=== PATIENT | female | born 1965 | race Caucasian/White ===

== ENCOUNTER 2017-06-24 14:24 | Inpatient (IN) | payer MEDICAID ==
--- NOTE | 2017-06-24 14:50 | EDM.PDOC ---
ED HPI GENERAL MEDICAL PROBLEM - General Chief Complaint: Abdominal Pain Stated Complaint: BEING SENT FROM [facility] Time Seen by Provider: 06/24/17 14:50 Source of Information: Reports: Patient History Limitations: Reports: No Limitations - History of Present Illness INITIAL COMMENTS - FREE TEXT/NARRATIVE: 52 yo white female c/o LLQ pain since Tue. w/ diarrhea and Nausea Onset Date: 06/22/17 Onset Time: 12:00 Duration: Day(s):, Getting Worse Location: Reports: Abdomen Quality: Reports: Ache Severity: Moderate Improves with: Reports: None Worsens with: Reports: Movement Associated Symptoms: Reports: Loss of Appetite, Nausea/Vomiting Left Lower Abdomen Pain Score (Numeric/FACES): 10 - Related Data Allergies Allergy/AdvReac Type Severity Reaction Status Date / Time codeine AdvReac Nausea and Verified 06/24/17 14:59 Vomiting Home Meds: Home Meds . [No Known Home Meds] 06/26/16 [History] Past Medical History HEENT History: Reports: Cataract Gastrointestinal History: Reports: GERD - Infectious Disease History Infectious Disease History: Reports: Chicken Pox, Measles, Mumps - Past Surgical History HEENT Surgical History: Reports: Cataract Surgery Female Surgical History: Reports: Tubal Ligation Social & Family History - Family History Family Medical History: Noncontributory - Tobacco Use Smoking Status *Q: Current Every Day Smoker Years of Tobacco use: 30 Packs/Tins Daily: 0.5 Used Tobacco, but Quit: No Second Hand Smoke Exposure: Yes - Alcohol Use Days Per Week of Alcohol Use: 3 Number of Drinks Per Day: 6 Total Drinks Per Week: 18 - Recreational Drug Use Recreational Drug Use: No ED ROS GENERAL - Review of Systems Review Of Systems: See Below Constitutional: Reports: Decreased Appetite HEENT: Reports: No Symptoms Respiratory: Reports: No Symptoms Cardiovascular: Reports: No Symptoms Endocrine: Reports: No Symptoms GI/Abdominal: Reports: Abdominal Pain (LLQ and across lower abdomen) : Reports: No Symptoms Musculoskeletal: Reports: No Symptoms Skin: Reports: No Symptoms Neurological: Reports: No Symptoms Psychiatric: Reports: No Symptoms Hematologic/Lymphatic: Reports: No Symptoms Immunologic: Reports: No Symptoms ED EXAM, GI/ABD - Physical Exam Exam: See Below Exam Limited By: No Limitations General Appearance: Alert, No Apparent Distress, Obese Eyes: Bilateral: EOMI Ears: Normal External Exam Nose: Normal Inspection Throat/Mouth: Normal Inspection, Normal Lips Head: Atraumatic, Normocephalic Neck: Normal Inspection, Supple Respiratory/Chest: No Respiratory Distress, Lungs Clear Cardiovascular: Normal Peripheral Pulses, Regular Rate, Rhythm, No Edema GI/Abdominal Exam: Guarding, Rebound, Tender (LLQ most, but diffuse), Abnormal Bowel Sounds (decreased) Rectal (Female) Exam: Tenderness Back Exam: Normal Inspection Extremities: Normal Inspection, Normal Range of Motion Neurological: Alert, Oriented, CN II-XII Intact, Normal Cognition Psychiatric: Normal Affect Skin Exam: Warm, Dry, Intact Lymphatic: No Adenopathy Course - Vital Signs Last Recorded V/S: Last Vital Signs Temp 36.4 C 06/24/17 17:58 Pulse 92 06/24/17 17:58 Resp 20 06/24/17 17:58 BP 117/69 06/24/17 17:58 Pulse Ox 92 L 06/24/17 17:58 - Orders/Labs/Meds Orders: Active Orders 24 hr Category Date Time Status CULTURE URINE [RM] Stat Lab 06/24/17 15:09 Received D5 1/2 NS w/ 40 mEq/L KCl 1,000 ml Med 06/24/17 15:45 Active IV ASDIRECTED Medication Orders Potassium Chloride/Dextrose/Sod Cl (D5 1/2 Ns W/ 40 Meq/L Kcl) 1,000 mls @ 999 mls/hr IV ASDIRECTED FELICITA Last Admin: 06/24/17 17:55 Dose: 999 mls/hr Labs: Laboratory Tests 06/24/17 06/24/17 06/24/17 Range/Units 14:48 14:48 14:48 WBC 19.3 H (5.0-10.0) 10^3/uL RBC 4.43 (4.2-5.4) 10^6/uL Hgb 14.2 (12.0-16.0) g/dL Hct 42.5 (37.0-47.0) % MCV 95.9 (80-100) fL MCH 32.1 (27.0-34.0) pg MCHC 33.4 (33.0-35.0) g/dL Plt Count 225 (150-450) 10^3/uL Neut % (Auto) 83.7 H (42.2-75.2) % Lymph % (Auto) 7.8 L (20.5-50.1) % [place] % (Auto) 8.2 H (2-8) % Eos % (Auto) 0.2 L (1.0-3.0) % Baso % (Auto) 0.1 (0.0-1.0) % Sodium 133 L (135-145) mmol/L Potassium 2.9 L (3.6-5.0) mmol/L Chloride 89 L D (101-111) mmol/L Carbon Dioxide 31.0 (21.0-31.0) mmol/L Anion Gap 15.9 BUN 9 (7-18) mg/dL Creatinine 0.6 (0.6-1.3) mg/dL Est Cr Clr Drug Dosing 84.78 mL/min Estimated GFR (MDRD) > 60 BUN/Creatinine Ratio 15.00 Glucose 103 (74-105) mg/dL Calcium 9.4 (8.4-10.2) mg/dl Magnesium 1.6 L (1.8-2.5) mg/dL Total Bilirubin 2.4 H (0.2-1.0) mg/dL AST 32 (10-42) IU/L ALT 31 (10-60) IU/L Alkaline Phosphatase 121 (42-121) IU/L Total Protein 7.3 (6.7-8.2) g/dl Albumin 3.5 (3.2-5.5) g/dl Globulin 3.8 Albumin/Globulin Ratio 0.92 Amylase 30 (28-100) U/L Lipase 19 L (22-51) U/L Urine Color (YELLOW) Urine Appearance (CLEAR) Urine pH (5.0-9.0) Ur Specific [place] (1.005-1.030) Urine Protein (NEGATIVE) Urine Glucose (UA) (NEGATIVE) Urine Ketones (NEGATIVE) Urine Occult Blood (NEGATIVE) Urine Nitrite (NEGATIVE) Urine Bilirubin (NEGATIVE) Urine Urobilinogen (0.2-1.0) mg/dL Ur Leukocyte Esterase (NEGATIVE) Urine RBC /HPF Urine WBC (0-5/HPF) /HPF Ur Epithelial Cells /HPF Amorphous Sediment (0/HPF) /HPF Urine Bacteria (0-FEW/HPF) /HPF Urine Mucus /LPF 06/24/ Range/Units 15:09 WBC (5.0-10.0) 10^3/uL RBC (4.2-5.4) 10^6/uL Hgb (12.0-16.0) g/dL Hct (37.0-47.0) % MCV (80-100) fL MCH (27.0-34.0) pg MCHC (33.0-35.0) g/dL Plt Count (150-450) 10^3/uL Neut % (Auto) (42.2-75.2) % Lymph % (Auto) (20.5-50.1) % [place] % (Auto) (2-8) % Eos % (Auto) (1.0-3.0) % Baso % (Auto) (0.0-1.0) % Sodium (135-145) mmol/L Potassium (3.6-5.0) mmol/L Chloride (101-111) mmol/L Carbon Dioxide (21.0-31.0) mmol/L Anion Gap BUN (7-18) mg/dL Creatinine (0.6-1.3) mg/dL Est Cr Clr Drug Dosing mL/min Estimated GFR (MDRD) BUN/Creatinine Ratio Glucose (74-105) mg/dL Calcium (8.4-10.2) mg/dl Magnesium (1.8-2.5) mg/dL Total Bilirubin (0.2-1.0) mg/dL AST (10-42) IU/L ALT (10-60) IU/L Alkaline Phosphatase (42-121) IU/L Total Protein (6.7-8.2) g/dl Albumin (3.2-5.5) g/dl Globulin Albumin/Globulin Ratio Amylase (28-100) U/L Lipase (22-51) U/L Urine Color [place] (YELLOW) Urine Appearance Cloudy (CLEAR) Urine pH 8.5 (5.0-9.0) Ur Specific [place] 1.015 (1.005-1.030) Urine Protein 100 H (NEGATIVE) Urine Glucose (UA) 100 H (NEGATIVE) Urine Ketones 80 H (NEGATIVE) Urine Occult Blood Moderate H (NEGATIVE) Urine Nitrite Positive H (NEGATIVE) Urine Bilirubin Large H (NEGATIVE) Urine Urobilinogen >=8.0 H (0.2-1.0) mg/dL Ur Leukocyte Esterase Negative (NEGATIVE) Urine RBC 40-50 H /HPF Urine WBC 0-5 (0-5/HPF) /HPF Ur Epithelial Cells Moderate H /HPF Amorphous Sediment Moderate H (0/HPF) /HPF Urine Bacteria Moderate H (0-FEW/HPF) /HPF Urine Mucus Moderate H /LPF Meds: Medications Generic Name Dose Route Start Last Admin Trade Name Freq PRN Reason Stop Dose Admin Potassium Chloride/Dextrose/Sod Cl 1,000 mls @ 999 mls/hr 06/24/17 15:45 17:55 D5 1/2 Ns W/ 40 Meq/L Kcl IV 999 mls/hr ASDIRECTED FELICITA Administration Discontinued Medications Generic Name Dose Route Start Last Admin Trade Name Freq PRN Reason Stop Dose Admin Hydromorphone HCl 1 mg 06/24/17 14:52 06/24/17 15:16 Dilaudid IVPUSH 06/24/17 14:53 1 mg ONETIME ONE Administration Sodium Chloride 1,000 mls @ 999 mls/hr 06/24/17 14:52 06/24/17 15:13 Normal Saline IV 06/24/17 15:52 999 mls/hr .BOLUS ONE Administration Ciprofloxacin/Dextrose 400 mg/ 200 mls @ 200 mls/hr 06/24/17 15:40 Premix IV 06/24/17 16:39 ONETIME ONE Metronidazole 500 mg/ Premix 100 mls @ 100 mls/hr 06/24/17 15:40 06/24/17 16: 32 IV 06/24/17 16:39 100 mls/hr ONETIME ONE Administration Iopamidol 100 ml 06/24/17 15:26 06/24/17 15:45 Isovue-300 (61%) IVPUSH 06/24/17 15:27 100 ml ONETIME ONE Administration Ondansetron HCl 4 mg 06/24/17 14:52 06/24/17 15:14 Zofran IV 06/24/17 14:53 4 mg ONETIME ONE Administration Departure - Departure Time of Disposition: 18:16 Disposition: Admitted As Inpatient 64 Condition: Fair Clinical Impression: Diverticulitis Qualifiers: Diverticulitis site: large intestine Diverticulitis bleeding: with bleeding Diverticulitis complication: without perforation or abscess Qualified Code(s): K57.33 - Diverticulitis of large intestine without perforation or abscess with bleeding UTI (urinary tract infection) Qualifiers: Urinary tract infection type: acute cystitis Hematuria presence: with hematuria Qualified Code(s): N30.01 - Acute cystitis with hematuria - Discharge Information Referrals: Fred Ayers MD [Physician] - Forms: ED Department Discharge - My Orders Last 24 Hours: My Active Orders 06/24/17 15:09 CULTURE URINE [RM] Stat 06/24/17 15:45 D5 1/2 NS w/ 40 mEq/L KCl 1,000 ml IV ASDIRECTED - Assessment/Plan Last 24 Hours: My Active Orders 06/24/17 15:09 CULTURE URINE [RM] Stat 06/24/17 15:45 D5 1/2 NS w/ 40 mEq/L KCl 1,000 ml IV ASDIRECTED
[2017-06-24] MEDS ORDERED: HYDROmorphone 1 MG/ML Syringe IVPUSH ONE (14:52)
[2017-06-24] MEDS ORDERED: Ondansetron 4 MG/2 ML SDV IV ONE (14:52)
[2017-06-24] MEDS ORDERED: Sodium Chloride 0.9% 1,000 ML IV ONE (14:52)
[2017-06-24 15:24] LABS: CHLORIDE,CL 89 mmol/L (101-111); SODIUM,NA 133 mmol/L (135-145)
[2017-06-24] MEDS ORDERED: Iopamidol 612 MG/ML 100 ML Bottle IVPUSH ONE (15:26)
[2017-06-24] MEDS ORDERED: Ciprofloxacin in D5W 400 MG in Premix Bag 1 BAG IV ONE ×2 (15:40)
[2017-06-24] MEDS ORDERED: metroNIDAZOLE/Normal Saline 500 MG in Premix Bag 100 BAG IV ONE (15:40)
[2017-06-24] MEDS ORDERED: D5 1/2 NS w/ 40 mEq/L KCl 1,000 ML IV SCH (15:45)
[2017-06-24] MEDS ORDERED: Ondansetron 4 MG/2 ML SDV IVPUSH PRN (18:36)
[2017-06-24] MEDS ORDERED: Sodium Chloride 0.9% 1,000 ML IV SCH (18:45)
[2017-06-24] MEDS ORDERED: Ciprofloxacin in D5W 400 MG in Premix Bag 1 BAG IV SCH ×2 (18:45)
[2017-06-24] MEDS: HYDROmorphone 1 MG/ML Syringe IVPUSH PRN ×2 (19:50→23:07)
[2017-06-24] MEDS: Sodium Chloride 0.9% with KCl 1,000 ML IV SCH (21:27)
[2017-06-24] MEDS: Heparin Sodium 5,000 Units/ML Vial SUBCUT SCH (21:33)
[2017-06-24] MEDS: metroNIDAZOLE/Normal Saline 500 MG in Premix Bag 100 BAG IV SCH (22:39)
[2017-06-25] MEDS: Heparin Sodium 5,000 Units/ML Vial SUBCUT SCH ×3 (05:50→21:12)
[2017-06-25] MEDS: HYDROmorphone 1 MG/ML Syringe IVPUSH PRN ×2 (06:10→10:16)
[2017-06-25] MEDS: metroNIDAZOLE/Normal Saline 500 MG in Premix Bag 100 BAG IV SCH ×3 (07:15→23:49)
[2017-06-25] MEDS: Ciprofloxacin in D5W 400 MG in Premix Bag 1 BAG IV SCH ×4 (08:36→21:07)
[2017-06-25] MEDS: Sodium Chloride 0.9% with KCl 1,000 ML IV SCH ×2 (11:09→21:14)
[2017-06-25] MEDS: Acetaminophen/oxyCODONE 325-5 MG Tab PO PRN ×2 (11:10→18:04)
[2017-06-26] MEDS: Heparin Sodium 5,000 Units/ML Vial SUBCUT SCH ×3 (06:01→21:11)
[2017-06-26] MEDS: metroNIDAZOLE/Normal Saline 500 MG in Premix Bag 100 BAG IV SCH (06:40)
[2017-06-26] MEDS: Piperacillin/Tazobactam 2.25 GM in Sodium Chloride 0.9% 50 ML IV SCH ×3 (10:25→21:06)
[2017-06-26] MEDS: Ciprofloxacin in D5W 400 MG in Premix Bag 1 BAG IV SCH ×2 (10:49)
--- NOTE | 2017-06-26 11:59 | PN ---
DATE: 06/26/2017 SUBJECTIVE: Ms. Shanon Estrada is a 52-year-old female with no significant past medical history. The patient was admitted with abdominal pain and found to have acute diverticulitis on CT scan. Today, the patient states that she still has a lot of pain in the left lower quadrant. She still has pain and is dull in nature. Has improved. It is not intermittent. She also indicated that she has not had bowel movement. No nausea. Has been on clear liquid diet. REVIEW OF SYSTEMS: Constitutional, cardiac, respiratory, gastrointestinal, genitourinary, and neurology system were reviewed. No other pertinent findings except as noted above. OBJECTIVE: General: The patient is alert, oriented to place, time, and person. Head: Atraumatic and normocephalic. Chest: Clear to auscultation. CVS: Regular rate and rhythm. Abdomen: Vague tenderness in the left lower quadrant. No rebound tenderness. Extremities: No pedal edema. No finger clubbing. Skin: No rash. Vital Signs: Blood pressure is 150/78, pulse 63 per minute, respiratory rate 20 per minute, oxygen saturation is 97%. LABORATORY DATA: White cell count is down to normal at 8.4, hemoglobin 11.3. ASSESSMENT: 1. Acute sigmoid diverticulitis. This was noted on CT scan. 2. Possible urinary tract infection. Urine culture shows polymicrobial growth suggestive of possible contamination. 3. Elevated bilirubin. Significance of that is unclear. 4. Hypoalbuminemia likely due to decreased oral food intake. PLAN: 1. Discontinue intravenous fluids. 2. Discontinue Flagyl. 3. Discontinue ciprofloxacin. 4. Start the patient on intravenous Zosyn. 5. Obtain repeat basic metabolic panel. 6. Advanced diet to general diet. 7. Encourage increased ambulation. 8. Antiemetic protocol. chart reviewed. [facility] /[id number]
[2017-06-27] MEDS: Piperacillin/Tazobactam 2.25 GM in Sodium Chloride 0.9% 50 ML IV SCH ×2 (03:33→09:20)
[2017-06-27] MEDS: Sodium Chloride 0.9% 10 ML Syringe FLUSH PRN ×3 (03:34→09:21)
[2017-06-27] MEDS: Heparin Sodium 5,000 Units/ML Vial SUBCUT SCH (06:35)
[2017-06-27 06:49] LABS: CHLORIDE,CL 100 mmol/L (98-109); SODIUM,NA 136 mmol/L (138-146)
--- NOTE | 2017-06-27 07:03 | HP ---
CHIEF COMPLAINT: Abdominal pain. HISTORY OF PRESENT ILLNESS: Ms. Shanon Estrada is a 52-year-old female with no significant past medical history. She presented to the emergency room complaining of abdominal pain that started 3 days ago. It is located in the left lower quadrant. It has worsened since onset. Describes as dull in nature. She has associated intermittent loose stool and constipation. Also, has associated headache and has had intermittent nausea. No vomiting. Her appetite has been poor. She also complains of sinus problems. No dysuria. No frequency of micturition. No hematuria. She did have associated subjective fever prior to coming to the hospital. She stated her temperature was up to 100.4. REVIEW OF SYSTEMS: A 10-point review of system performed. No other pertinent findings except as noted above. FAMILY HISTORY: Reviewed and considered noncontributory. SOCIAL HISTORY: No tobacco use. No alcohol use. PAST MEDICAL HISTORY: None of note. MEDICATIONS: None. OBJECTIVE: General: The patient is alert, oriented to place, time, and person. Head: Atraumatic and normocephalic. Ear, Nose, and Throat: Unremarkable. Neck: Supple. Chest: Clear to auscultation. CVS: Regular rate and rhythm. Abdomen: Tenderness over the left lower quadrant. No rebound tenderness. Extremities: No pedal edema. No finger clubbing. Skin: No rash. Neuro: Symmetric strength in all extremities. Endocrine: No thyromegaly. Psychiatric: Judgment and insight are good. Vital Signs: Blood pressure is 117/69, pulse is 92 per minute, temperature 96.4, oxygen saturation 97%. LABORATORY DATA: White cell count is 19.3. Potassium is 2.9, sodium is 133, magnesium is 1.6. Total bilirubin is 2.4. Lipase is 19. Urinalysis is suggestive of infection with positive nitrites. ASSESSMENT: 1. Acute sigmoid diverticulitis. No evidence of perforation. 2. Abdominal lymphadenitis. This is secondary to diverticulitis. 3. Obesity. 4. Urinary tract infection. PLAN: 1. Admit the patient to medical floor. 2. Intravenous Dilaudid. 3. Intravenous Zofran. 4. Antiemetic protocol. 5. Start the patient on clear liquid to full liquid diet. 6. Intravenous ciprofloxacin, intravenous Flagyl. 7. Serial examination. 8. Chart reviewed. Discussed with emergency room physician. [facility] /[id number]
[2017-06-27 08:15] VITALS: BP 164/79
--- NOTE | 2017-06-27 08:51 | PN ---
DATE: 06/25/2017 SUBJECTIVE: The patient still complains of abdominal pain and points to the left lower quadrant. Intravenous pain medication does help, but effect does not last. No chest pain. No shortness of breath. No nausea, vomiting. Did not have any fever last night. REVIEW OF SYSTEMS: Cardiac, gastrointestinal, genitourinary, respiratory, general reviewed. No other pertinent findings except as noted above. OBJECTIVE: Vital Signs: Blood pressure 121/69, pulse 86 per minute, respiratory rate 20 per minute, temperature 96.5. General: Alert and oriented to place, time, and person. Chest: Diminished breath sounds bilaterally. Abdomen: Tenderness in the left lower quadrant. No rebound tenderness. Extremities: No pedal edema. LABORATORY DATA: White count is down to 16,000. Total bilirubin is 1.8, and direct is 0.5. Albumin is 2.8. ASSESSMENT: 1. Acute diverticulitis. No evidence of perforation. 2. Abdominal lymphadenitis. 3. Elevated bilirubin. 4. Urinary tract infection. Urinalysis is suggestive. PLAN: 1. Continue intravenous Cipro. 2. Continue intravenous Flagyl. 3. Obtain repeat CBC. 4. Start the patient on Percocet. 5. Clear liquid diet. 6. Encourage increased ambulation. [facility] /[id number]
--- NOTE | 2017-06-28 03:31 | DISCH ---
FINAL DIAGNOSES: 1. Acute sigmoid diverticulitis. 2. Probable urinary tract infection. 3. Elevated bilirubin. 4. Hypoalbuminemia. SUMMARY OF HOSPITAL COURSE: Ms. Shanon Estrada is a 52-year-old female with no significant past medical history. She presented with complaint of abdominal pain and nausea. She was found to be tender at the left lower quadrant and had elevated white cell count of 21,000. The patient had a CT scan that showed evidence of sigmoid diverticulitis with an abdominal lymphadenopathy. She got admitted to the hospital and was started on intravenous fluids and antibiotics. She was placed on ciprofloxacin and Flagyl and later switched to Zosyn. She has done well and her white cell count is down to normal. The patient's abdominal pain has also subsided. She will be discharged to home and follow up with her primary care provider. She has been advised to have a colonoscopy in 6 weeks. PHYSICAL EXAMINATION: General: At discharge, the patient is alert, oriented to place, time, and person. Head: Atraumatic and normocephalic. Ear, Nose, and Throat: Unremarkable. Neck: Supple. Chest: Good air entry bilaterally. Abdomen: Soft, nontender. Extremities: No pedal edema. No finger clubbing. Skin: No rash. [facility] /[id number]
== END 2017-06-27 10:10 | disposition home or self-care (01) | DRG 392 ==
LOC: DL.ED 14:24 → DL.MS 18:36
PROVIDERS: ADMIT Hospitalist; ATTEND Hospitalist
DX: K57.32 Diverticulitis of large intestine without perforation or abscess without bleeding (principal); N39.0 Urinary tract infection, site not specified; E80.6 Other disorders of bilirubin metabolism; E88.09 Other disorders of plasma-protein metabolism, not elsewhere classified; K21.9 Gastro-esophageal reflux disease without esophagitis; E66.9 Obesity, unspecified; Z88.8 Allergy status to other drugs, medicaments and biological substances
CPT/HCPCS: 36415; 74178; 80048; 80053; 80076; 81001; 82150; 82272; 83690; 83735; 85025; 87086; 96361; 96365; 96367; 96375; 99285; A9270-GY; J0744; J1170; J1644; J2405; J2543; J3480; J7030; J7050; Q9967

== ENCOUNTER 2017-09-13 06:55 | Day surgery (SDC) | payer MEDICAID ==
[2017-09-13] MEDS ORDERED: fentaNYL 100 MCG/2 ML SDV IV ONE ×4 (06:56→08:16)
[2017-09-13] MEDS ORDERED: Midazolam 1 MG/ML 2 ML SDV IV ONE ×7 (06:56→07:55)
[2017-09-13] MEDS ORDERED: Lactated Ringers 1,000 ML IV SCH (07:15)
[2017-09-13] MEDS ORDERED: Sodium Chloride 0.9% 10 ML Syringe IV PRN (07:15)
[2017-09-13] MEDS ORDERED: Midazolam 1 MG/ML 2 ML SDV ONE (07:16)
[2017-09-13] MEDS ORDERED: fentaNYL 100 MCG/2 ML SDV ONE (07:16)
--- NOTE | 2017-09-13 09:24 | OR ---
DATE: 09/13/2017 PREOPERATIVE DIAGNOSIS: Screening colonoscopy. POSTOPERATIVE DIAGNOSIS: Screening colonoscopy. PROCEDURES: Total colonoscopy with biopsy; removal of left colon polyp; and snare excision of sigmoid polyp, but the sigmoid polyp was not retrieved. ANESTHESIA: Conscious sedation with IV Versed and fentanyl. SPECIMEN: Polyp. OPERATIVE FINDINGS: A small 2-mm polyp in the left colon and a somewhat larger 4-mm polyp in the sigmoid colon. She also has moderate sigmoid diverticulosis. RECOMMENDATION: Follow up colonoscopy for polyp surveillance, 5 years. INDICATION FOR PROCEDURE: This 52-year-old female has not had a prior colonoscopy. She is here for screening. PROCEDURE IN DETAIL: After adequate preparation, a colonoscope was inserted into the rectum. This was passed up to just past the rectosigmoid junction, that it had a very difficult time negotiating this turn in the colon. It seemed to be fixed within the pelvis. Multiple maneuvers were unsuccessful. I withdrew the adult colonoscope and retried this using a pediatric scope. At this time, I was able to manipulate the scope around this adhesive area and passed this scope all the way to the cecum. Confirmation of the cecum was made by visualization of the appendiceal opening and palpation in the right lower quadrant. The bowel prep was very good on withdrawal of the scope. The only abnormality noted was a 2-mm polyp in the sigmoid colon. Multiple biopsies of this were taken to pretty much completely remove this polyp. Further down in the mid to lower sigmoid colon, there was a larger 4- to 5-mm polyp. A snare was used to encircle the polyp, and using cutting cautery, the polyp was extracted. This, however, retracted back up into the colon above the spot where the prior stricture had been, that I could not negotiate the first time, and I was not able to pass the scope back up the colon to retrieve this polyp. It certainly did not have the size criteria to be anything more than an adenoma. Other than that, she has sigmoid diverticulosis. Rectal examination was normal. Air was suctioned from the colon, and the scope was removed. [facility] /[id number]
[2017-09-13 11:21] VITALS: BP 135/72
== END 2017-09-13 10:40 | disposition home or self-care (01) ==
LOC: DL.ENDO 06:55
PROVIDERS: ATTEND Surgery
DX: Z12.11 Encounter for screening for malignant neoplasm of colon (principal); D12.6 Benign neoplasm of colon, unspecified; K57.30 Diverticulosis of large intestine without perforation or abscess without bleeding; Z88.8 Allergy status to other drugs, medicaments and biological substances; Z79.899 Other long term (current) drug therapy; F17.200 Nicotine dependence, unspecified, uncomplicated
CPT/HCPCS: 45380; 45385; J2250; J3010; J7050; J7120

== ENCOUNTER 2018-02-23 13:06 | Emergency (ER) | payer MEDICAID ==
--- NOTE | 2018-02-23 14:35 | EDM.PDOC ---
ED HPI GENERAL MEDICAL PROBLEM - General Chief Complaint: Gastrointestinal Problem Stated Complaint: DIVERTICULITUS ACTING UP Time Seen by Provider: 02/23/18 14:15 Source of Information: Reports: Patient History Limitations: Reports: No Limitations - History of Present Illness INITIAL COMMENTS - FREE TEXT/NARRATIVE: This 52 yo female patient reports to the ED with abdominal pain. The patient reports her symptoms started about 1 week ago, but got much worse today. The patient reports that she noticed that her urine was darker today. The patient reports that she has a history of diverticultis and was hospitalized for 9 days during the last episode. The patient reports that she has not seen or attempted to see her primary care facility at this time. The patient reports she has been drinking plenty of water and has not taken any OTC's for temporary symptom relief. Duration: Week(s):, Constant, Getting Worse Location: Reports: Abdomen Quality: Reports: Ache, Sharp Severity: Moderate Improves with: Reports: None Worsens with: Reports: None Associated Symptoms: Reports: No Other Symptoms Abdomen Pain Score (Numeric/FACES): 8 - Related Data Allergies Allergy/AdvReac Type Severity Reaction Status Date / Time codeine AdvReac Nausea and Verified 09/13/17 07:25 Vomiting Past Medical History HEENT History: Reports: Cataract Cardiovascular History: Reports: None Respiratory History: Reports: Bronchitis, Recurrent Gastrointestinal History: Reports: GERD, Other (See Below) Other Gastrointestinal History: diverticulitis Genitourinary History: Reports: None SHOWER MAID History: Reports: , Spontaneous Other OB/BYN History: 2 NVD, 4 miscarriages Musculoskeletal History: Reports: None Neurological History: Reports: Migraines Psychiatric History: Reports: None Endocrine/Metabolic History: Reports: Obesity/BMI 30+ Hematologic History: Reports: None Immunologic History: Reports: None Oncologic (Cancer) History: Reports: None Dermatologic History: Reports: None - Infectious Disease History Infectious Disease History: Reports: Chicken Pox, Measles, Mumps - Past Surgical History Head Surgeries/Procedures: Reports: None HEENT Surgical History: Reports: Adenoidectomy, Cataract Surgery, Eye Surgery, Tonsillectomy Cardiovascular Surgical History: Reports: None GI Surgical History: Reports: Cholecystectomy Female Surgical History: Reports: Tubal Ligation Endocrine Surgical History: Reports: None Neurological Surgical History: Reports: None Musculoskeletal Surgical History: Reports: None Dermatological Surgical History: Reports: None Social & Family History - Family History Family Medical History: Noncontributory - Tobacco Use Smoking Status *Q: Current Every Day Smoker Years of Tobacco use: 42 Packs/Tins Daily: 0.5 - Caffeine Use Caffeine Use: Reports: Coffee, Soda, Tea Caffeine Use Comment: 32oz - Alcohol Use Days Per Week of Alcohol Use: 3 Number of Drinks Per Day: 4 Total Drinks Per Week: 12 - Recreational Drug Use Recreational Drug Use: No ED ROS GENERAL - Review of Systems Review Of Systems: ROS reveals no pertinent complaints other than HPI. ED EXAM, GI/ABD - Physical Exam Exam: See Below Exam Limited By: No Limitations General Appearance: Alert, WD/WN, No Apparent Distress Eyes: Bilateral: Normal Appearance, EOMI Ears: Normal External Exam, Normal Canal, Hearing Grossly Normal, Normal TMs Nose: Normal Inspection, Normal Mucosa, No Blood Throat/Mouth: Normal Inspection, Normal Lips, Normal Teeth, Normal Gums, Normal Oropharynx, Normal Voice, No Airway Compromise Head: Atraumatic, Normocephalic Neck: Normal Inspection, Supple, Non-Tender, Full Range of Motion Respiratory/Chest: No Respiratory Distress, Lungs Clear, Normal Breath Sounds, No Accessory Muscle Use, Chest Non-Tender Cardiovascular: Normal Peripheral Pulses, Regular Rate, Rhythm, No Edema, No Gallop, No JVD, No Murmur, No Rub GI/Abdominal Exam: Guarding, Tender (diffuse) (Female) Exam: Deferred Rectal (Female) Exam: Deferred Back Exam: Normal Inspection, Full Range of Motion, NT Extremities: Normal Inspection, Normal Range of Motion, Non-Tender, Normal Capillary Refill, No Pedal Edema Neurological: Alert, Oriented, CN II-XII Intact, Normal Cognition, Normal Gait, Normal Reflexes, No Motor/Sensory Deficits Psychiatric: Normal Affect, Normal Mood Skin Exam: Warm, Dry, Intact, Normal Color, No Rash Lymphatic: No Adenopathy Course - Vital Signs Last Recorded V/S: Last Vital Signs Temp 37.1 C 02/23/18 16:58 Pulse 77 02/23/18 16:58 Resp 18 02/23/18 16:58 BP 134/76 02/23/18 16:58 Pulse Ox 93 L 02/23/18 16:58 - Orders/Labs/Meds Orders: Active Orders 24 hr Category Date Time Status UA W/MICROSCOPIC [URIN] Stat Lab 02/23/18 14:42 Ordered Piperacillin/Tazobactam [Zosyn] 3.375 gm Med 02/23/18 17:23 Ordered Sodium Chloride 0.9% [Normal Saline] 100 ml IV ONETIME Medication Orders Piperacillin Sod/Tazobactam (Sod 3.375 gm/ Sodium Chloride) 100 mls @ 200 mls/ hr IV ONETIME ONE Stop: 02/23/18 17:52 Labs: Laboratory Tests 02/23/18 02/23/18 02/23/18 Range/Units 14:32 14:32 14:42 WBC 8.5 (5.0-10.0) 10^3/uL RBC 3.73 L (4.2-5.4) 10^6/uL Hgb 12.9 D (12.0-16.0) g/dL Hct 38.6 (37.0-47.0) % MCV 103.5 H D (80-100) fL MCH 34.6 H (27.0-34.0) pg MCHC 33.4 (33.0-35.0) g/dL Plt Count 235 (150-450) 10^3/uL Neut % (Auto) 74.6 (42.2-75.2) % Lymph % (Auto) 16.6 L (20.5-50.1) % [place] % (Auto) 7.8 (2-8) % Eos % (Auto) 0.4 L (1.0-3.0) % Baso % (Auto) 0.6 (0.0-1.0) % Sodium 135 (135-145) mmol/L Potassium 2.7 L (3.6-5.0) mmol/L Chloride 83 L (101-111) mmol/L Carbon Dioxide 41.0 H D (21.0-31.0) mmol/L Anion Gap 13.7 BUN 4 L (7-18) mg/dL Creatinine 0.5 L (0.6-1.3) mg/dL Est Cr Clr Drug Dosing 101.73 mL/min Estimated GFR (MDRD) > 60 BUN/Creatinine Ratio 8.00 Glucose 99 (74-105) mg/dL Calcium 8.6 (8.4-10.2) mg/dl Total Bilirubin 1.6 H (0.2-1.0) mg/dL AST 48 H (10-42) IU/L ALT 18 (10-60) IU/L Alkaline Phosphatase 142 H (42-121) IU/L Total Protein 6.1 L (6.7-8.2) g/dl Albumin 3.0 L (3.2-5.5) g/dl Globulin 3.1 Albumin/Globulin Ratio 0.97 Urine Color Yellow (YELLOW) Urine Appearance Slightly cloudy (CLEAR) Urine pH >= 9.0 (5.0-9.0) Ur Specific [place] 1.015 (1.005-1.030) Urine Protein 100 H (NEGATIVE) Urine Glucose (UA) 100 H (NEGATIVE) Urine Ketones Negative (NEGATIVE) Urine Occult Blood Negative (NEGATIVE) Urine Nitrite Negative (NEGATIVE) Urine Bilirubin Moderate H (NEGATIVE) Urine Urobilinogen >=8.0 H (0.2-1.0) mg/dL Ur Leukocyte Esterase Negative (NEGATIVE) Urine RBC 5-10 H /HPF Urine WBC 0-5 (0-5/HPF) /HPF Ur Epithelial Cells Many H /HPF Urine Bacteria Few (0-FEW/HPF) /HPF Urine Mucus Few H /LPF Meds: Medications Generic Name Dose Route Start Last Admin Trade Name Freq PRN Reason Stop Dose Admin Piperacillin Sod/Tazobactam 100 mls @ 200 mls/hr 02/23/18 17:23 Sod 3.375 gm/ Sodium Chloride IV 02/23/18 17:52 ONETIME ONE Discontinued Medications Generic Name Dose Route Start Last Admin Trade Name Freq PRN Reason Stop Dose Admin Hydromorphone HCl 0.5 mg 02/23/18 17:01 02/23/18 17:09 Dilaudid IVPUSH 02/23/18 17:02 0.5 mg ONETIME ONE Administration Sodium Chloride 1,000 mls @ 999 mls/hr 02/23/18 14:23 02/23/18 14:51 Normal Saline IV 02/23/18 15:23 999 mls/hr .BOLUS ONE Administration Iopamidol 100 ml 02/23/18 15:32 02/23/18 16:03 Isovue-300 (61%) IVPUSH 02/23/18 15:33 100 ml ONETIME ONE Administration Ondansetron HCl 4 mg 02/23/18 17:01 02/23/18 17:07 Zofran IV 02/23/18 17:02 4 mg ONETIME ONE Administration Departure - Departure Time of Disposition: 17:24 Disposition: DC/Tfer to Acute Hospital 02 Condition: Fair Clinical Impression: Diverticular disease of intestine with perforation and abscess - Discharge Information Forms: Interfacility Transfer EMTALA Care Plan Goals: Discussed the examination, lab and CT results with Dr. Shaffer (Hospitalist with [facility] ). Dr. Shaffer accepted the patient for continued evaluation and management. The patient will be transported by [facility]. - My Orders Last 24 Hours: My Active Orders 02/23/18 14:42 UA W/MICROSCOPIC [URIN] Stat 02/23/18 17:23 Piperacillin/Tazobactam [Zosyn] 3.375 gm Sodium Chloride 0.9% [Normal Saline] 100 ml IV ONETIME - Assessment/Plan Last 24 Hours: My Active Orders 02/23/18 14:42 UA W/MICROSCOPIC [URIN] Stat 02/23/18 17:23 Piperacillin/Tazobactam [Zosyn] 3.375 gm Sodium Chloride 0.9% [Normal Saline] 100 ml IV ONETIME
[2018-02-23] MEDS: Sodium Chloride 0.9% 1,000 ML IV ONE (14:51)
[2018-02-23 15:03] LABS: CHLORIDE,CL 83 mmol/L (101-111)
[2018-02-23 15:04] LABS: SODIUM,NA 135 mmol/L (135-145)
[2018-02-23] MEDS: Iopamidol 612 MG/ML 100 ML Bottle IVPUSH ONE (16:03)
--- NOTE | 2018-02-23 16:35 | CT ---
Clinical history: 52-year-old 200 pound female smoker complaining of abdominal pain who was reported on previous CT scan 08/11/2017 to have "abnormal sigmoid colon". Cholecystectomy and large hiatus neida ia. White blood cell count 8500. Technique: Volume acquisition of data from the abdomen and pelvis obtained without oral contrast but during intravenous administration 100 cc nonionic Isovue contrast (2 cc/s via injector) while lying s upine on the Siemens multi slice scanner [place], [place]. All data ar chived in the PACS system for storage, reformatting and study. Interpretation: Abnormal. 1. *Abnormally thickened wall sigmoid colon with adjacent collection of fluid in the left lower quadr ant abdomen friends new since CT scan 16 August 2017) suggesting perforated diverticulum or colon m alignancy. Clinical correlation? 2. Cholecystectomy. Large fatty liver. Huge hiatus hernia incarcerated in the lower middle mediastinu m. 3. Abnormal appearance of the mucosa ascending right colon suggesting inflammatory colitis. No other pelvic or abdominal mass lesion and no signs of retroperitoneal lymphadenopathy. No mechanical bowel obstruction or free intraperitoneal air. 4. Calcifications scattered ectatic but normal caliber aortoiliac vessels. No aneurysm or dissection. 5. Midline uterus unremarkable. No adnexal mass lesions. 6. Marginal spondylosis. No pathologic skeletal lesion, lumbar fracture or dislocation. Atelectasis R LL. 7. Normal reniform size, axis and configuration. No sign of renal cortical mass lesion, nephrolithias is or obstructive uropathy. Spleen, pancreas and adrenal glands unremarkable.
[2018-02-23] MEDS: Ondansetron 4 MG/2 ML SDV IV ONE (17:07)
[2018-02-23] MEDS: HYDROmorphone 0.5 MG/0.5 ML Syringe IVPUSH ONE (17:09)
[2018-02-23 17:41] VITALS: BP 137/74
[2018-02-23] MEDS: Piperacillin/Tazobactam 3.375 GM in Sodium Chloride 0.9% 100 ML IV ONE (17:52)
== END 2018-02-23 18:03 ==
LOC: DL.ED 13:06
DX: K57.20 Diverticulitis of large intestine with perforation and abscess without bleeding (principal); K44.0 Diaphragmatic hernia with obstruction, without gangrene; F17.210 Nicotine dependence, cigarettes, uncomplicated; K21.9 Gastro-esophageal reflux disease without esophagitis; Z88.5 Allergy status to narcotic agent
CPT/HCPCS: 36415; 74177; 80053; 81001; 85025; 96361; 96374; 96375; 99285; J1170; J2405; J2543; J7030; J7050; Q9967

== ENCOUNTER 2018-05-21 21:16 | Emergency (ER) | payer MEDICAID ==
[2018-05-21 22:35] LABS: ANION GAP 11.6; CHLORIDE,CL 90 mmol/L (101-111); SODIUM,NA 138 mmol/L (135-145)
--- NOTE | 2018-05-21 22:59 | EDM.PDOC ---
ED HPI GENERAL MEDICAL PROBLEM - General Chief Complaint: Abdominal Pain Stated Complaint: STOMACH PAIN [id number] Time Seen by Provider: 05/21/18 22:56 Source of Information: Reports: Patient History Limitations: Reports: No Limitations - History of Present Illness INITIAL COMMENTS - FREE TEXT/NARRATIVE: gives long h/o LLQ pain from divertic, was here few months ago and sent to [facility] where they considered surgery but none was done. pain got worse tonight been having V & D on-off few days. 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: 2 NVD, 4 miscarriages Musculoskeletal History: Reports: None Neurological History: Reports: Migraines Psychiatric History: Reports: None Endocrine/Metabolic History: Reports: Obesity/BMI 30+ Hematologic History: Reports: None Immunologic History: Reports: None Oncologic (Cancer) History: Reports: None Dermatologic History: Reports: None - Infectious Disease History Infectious Disease History: Reports: Chicken Pox, Measles, Mumps - Past Surgical History Head Surgeries/Procedures: Reports: None HEENT Surgical History: Reports: Adenoidectomy, Cataract Surgery, Eye Surgery, Tonsillectomy Cardiovascular Surgical History: Reports: None GI Surgical History: Reports: Cholecystectomy Female Surgical History: Reports: Tubal Ligation Endocrine Surgical History: Reports: None Neurological Surgical History: Reports: None Musculoskeletal Surgical History: Reports: None Dermatological Surgical History: Reports: None Social & Family History - Family History Family Medical History: Noncontributory - Tobacco Use Smoking Status *Q: Current Every Day Smoker Years of Tobacco use: 40 Packs/Tins Daily: 1 - Caffeine Use Caffeine Use: Reports: Coffee Caffeine Use Comment: 32oz - Recreational Drug Use Recreational Drug Use: No ED ROS GENERAL - Review of Systems Review Of Systems: ROS reveals no pertinent complaints other than HPI. ED EXAM, GI/ABD - Physical Exam Exam: See Below Exam Limited By: No Limitations General Appearance: Alert, WD/WN, Mild Distress, Other (disocmfort) Ears: Hearing Grossly Normal Throat/Mouth: Normal Voice, No Airway Compromise Head: Atraumatic Neck: Non-Tender, Full Range of Motion Respiratory/Chest: No Respiratory Distress Cardiovascular: Regular Rate, Rhythm GI/Abdominal Exam: Guarding, Tender, Other (BS slightly increase). No: Distended, Rigid, Rebound Neurological: Alert, Oriented, Normal Cognition, Normal Gait, No Motor/Sensory Deficits Psychiatric: Flat Affect Skin Exam: Warm, Dry, Normal Color Lymphatic: No Adenopathy Course - Vital Signs Last Recorded V/S: Last Vital Signs Temp 36.4 C 05/21/18 21:54 Pulse 95 05/21/18 21:54 Resp 20 05/21/18 21:54 BP 115/78 05/21/18 21:54 Pulse Ox 94 L 05/21/18 21:54 - Orders/Labs/Meds Orders: Active Orders 24 hr Category Date Time Status Dextrose 5%-1/2 NS w/ 20 mEq/L KCl @ 150 mL/Hr (1000 mL Med 05/21/18 23:30 Ordered ) D5 1/2 NS w/ 20 mEq/L KCl 1,000 ml IV ASDIRECTED Labs: Laboratory Tests 05/21/18 05/21/18 05/21/18 Range/Units 22:10 22:10 22:12 WBC 7.6 (5.0-10.0) 10^3/uL RBC 3.89 L (4.2-5.4) 10^6/uL Hgb 13.2 (12.0-16.0) g/dL Hct 39.0 (37.0-47.0) % MCV 100.3 H D (80-100) fL MCH 33.9 (27.0-34.0) pg MCHC 33.8 (33.0-35.0) g/dL Plt Count 253 (150-450) 10^3/uL Neut % (Auto) 52.1 (42.2-75.2) % Lymph % (Auto) 40.6 (20.5-50.1) % [place] % (Auto) 5.8 (2-8) % Eos % (Auto) 1.0 (1.0-3.0) % Baso % (Auto) 0.5 (0.0-1.0) % Sodium 138 (135-145) mmol/L Potassium 2.6 L (3.6-5.0) mmol/L Chloride 90 L (101-111) mmol/L Carbon Dioxide 39.0 H (21.0-31.0) mmol/L Anion Gap 11.6 BUN 3 L (7-18) mg/dL Creatinine 0.9 (0.6-1.3) mg/dL Est Cr Clr Drug Dosing 55.86 mL/min Estimated GFR (MDRD) > 60 BUN/Creatinine Ratio 3.33 Glucose 111 H (74-105) mg/dL Calcium 8.5 (8.4-10.2) mg/dl Total Bilirubin 0.6 (0.2-1.0) mg/dL AST 45 H (10-42) IU/L ALT 26 (10-60) IU/L Alkaline Phosphatase 158 H (42-121) IU/L Total Protein 6.8 (6.7-8.2) g/dl Albumin 3.4 (3.2-5.5) g/dl Globulin 3.4 Albumin/Globulin Ratio 1.00 Urine Color Yellow (YELLOW) Urine Appearance Clear (CLEAR) Urine pH 8.5 (5.0-9.0) Ur Specific [place] 1.015 (1.005-1.030) Urine Protein Trace H (NEGATIVE) Urine Glucose (UA) Negative (NEGATIVE) Urine Ketones Trace H (NEGATIVE) Urine Occult Blood Trace-intact H (NEGATIVE) Urine Nitrite Negative (NEGATIVE) Urine Bilirubin Negative (NEGATIVE) Urine Urobilinogen 1.0 (0.2-1.0) mg/dL Ur Leukocyte Esterase Negative (NEGATIVE) Urine RBC 5-10 H /HPF Urine WBC 0-5 (0-5/HPF) /HPF Ur Epithelial Cells Occasional /HPF Urine Bacteria Few (0-FEW/HPF) /HPF - Re-Assessments/Exams Free Text/Narrative Re-Assessment/Exam: 18 23:[address] Scott who kindly accepted pt. Departure - Departure Time of Disposition: 23:28 Disposition: DC/Tfer to Acute Hospital 02 Condition: Fair Clinical Impression: Abdominal pain Qualifiers: Abdominal location: left lower quadrant Qualified Code(s): R10.32 - Left lower quadrant pain Diverticulitis large intestine Qualifiers: Diverticulitis bleeding: without bleeding Diverticulitis complication: without perforation or abscess Qualified Code(s): K57.32 - Diverticulitis of large intestine without perforation or abscess without bleeding - Discharge Information Forms: Interfacility Transfer EMTALA - My Orders Last 24 Hours: My Active Orders 05/21/18 23:30 Dextrose 5%-1/2 NS w/ 20 mEq/L KCl @ 150 mL/Hr (1000 mL) D5 1/2 NS w/ 20 mEq/L KCl 1,000 ml IV ASDIRECTED - Assessment/Plan Last 24 Hours: My Active Orders 05/21/18 23:30 Dextrose 5%-1/2 NS w/ 20 mEq/L KCl @ 150 mL/Hr (1000 mL) D5 1/2 NS w/ 20 mEq/L KCl 1,000 ml IV ASDIRECTED
[2018-05-21] MEDS ORDERED: D5 1/2 NS w/ 20 mEq/L KCl 1,000 ML IV SCH (23:30)
[2018-05-21] MEDS ORDERED: Morphine 2 MG/ML Syringe IVPUSH ONE (23:31)
[2018-05-21] MEDS ORDERED: Ondansetron 4 MG/2 ML SDV IV ONE (23:31)
[2018-05-22] MEDS ORDERED: metroNIDAZOLE/Normal Saline 500 MG in Premix Bag 100 BAG IV ONE (00:51)
[2018-05-22] MEDS ORDERED: Morphine 2 MG/ML Syringe IVPUSH ONE (01:41)
[2018-05-22 02:09] VITALS: BP 110/68
== END 2018-05-22 02:21 ==
LOC: DL.ED 21:16
DX: K57.32 Diverticulitis of large intestine without perforation or abscess without bleeding (principal); E66.9 Obesity, unspecified; F17.210 Nicotine dependence, cigarettes, uncomplicated; Z88.5 Allergy status to narcotic agent
CPT/HCPCS: 36415; 80053; 81001; 85025; 96365; 96366; 96368; 96375; 96376; 99285; J2270; J2405; J3480; J3490

== ENCOUNTER 2018-11-03 10:01 | Inpatient (IN) | payer MEDICAID ==
--- NOTE | 2018-11-03 16:00 | PCM.HP ---
H&P History of Present Illness - General Date of Service: 11/03/18 Admit Problem/Dx: Shanon David a 53 y.o.female with PMH of HTN, DM-II, recurrent diverticulitis. She was admitted to [facility] and had sigmoid colectomy, enterolysis with repair of ascending colon serosal injury, repair of incarcerated umbilical hernia. She did well post surgery. She was discharged to our swing bed to continue PT/OT for strengthening. At bedside evaluation, patient denies any new complaints. No chest pain, SOB. No abdominal pain, fever, chills. No diarrhea or constipation. Source of Information: Patient History Limitations: Reports: No Limitations - History of Present Illness Improves with: Reports: None Worsens with: Reports: None Associated Symptoms: Reports: No Other Symptoms Abdomen Pain Score (Numeric/FACES): 9 - Related Data Allergies/Adverse Reactions: Allergies Allergy/AdvReac Type Severity Reaction Status Date / Time codeine AdvReac Nausea and Verified 11/03/18 10:36 Vomiting Home Medications: Home Meds Metoprolol Tartrate 25 mg PO BID 05/27/18 [History] hydroCHLOROthiazide [Hydrochlorothiazide] 25 mg PO DAILY 05/27/18 [History] Esomeprazole Magnesium [Nexium 24Hr] 20 mg PO DAILY 07/20/18 [History] Hydrocodone/Acetaminophen [[place] Hd 10-325 mg Tablet] 1 tab PO Q6H PRN [History] Potassium Chloride [Klor-Con] 20 meq PO DAILY 11/03/18 [History] amLODIPine Besylate [Amlodipine Besylate] 5 mg PO DAILY 11/03/18 [History] Past Medical History HEENT History: Reports: Cataract, Impaired Vision, Sinusitis Cardiovascular History: Reports: Hypertension Respiratory History: Reports: Bronchitis, Recurrent Gastrointestinal History: Reports: GERD, Other (See Below) Other Gastrointestinal History: diverticulitis Genitourinary History: Reports: None 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 heel spurs left Neurological History: Reports: Migraines Psychiatric History: Reports: None Endocrine/Metabolic History: Reports: Obesity/BMI 30+ Hematologic History: Reports: None Immunologic History: Reports: None Oncologic (Cancer) History: Reports: None Dermatologic History: Reports: None - Infectious Disease History Infectious Disease History: Reports: None - Past Surgical History Head Surgeries/Procedures: Reports: None HEENT Surgical History: Reports: Adenoidectomy, Cataract Surgery, Eye Surgery, Tonsillectomy Other HEENT Surgeries/Procedures: bilateal cataract surgery Cardiovascular Surgical History: Reports: None Respiratory Surgical History: Reports: None GI Surgical History: Reports: Cholecystectomy, Colonoscopy, EGD, Other (See Below) Other GI Surgeries/Procedures: sigmoidectomy oct 2018 Female Surgical History: Reports: Tubal Ligation Endocrine Surgical History: Reports: None Neurological Surgical History: Reports: None Musculoskeletal Surgical History: Reports: None Dermatological Surgical History: Reports: None Social & Family History - Family History Family Medical History: Noncontributory - Tobacco Use Smoking Status *Q: Current Every Day Smoker Years of Tobacco use: 35 Packs/Tins Daily: 0.5 Used Tobacco, but Quit: No - Caffeine Use Caffeine Use: Reports: Coffee, Soda Caffeine Use Comment: 2 cups coffee. 4L daily - Recreational Drug Use Recreational Drug Use: No H&P Review of Systems - Review of Systems: Review Of Systems: See Below General: Reports: No Symptoms HEENT: Reports: No Symptoms Pulmonary: Reports: No Symptoms Cardiovascular: Reports: No Symptoms Gastrointestinal: Reports: No Symptoms Genitourinary: Reports: No Symptoms Musculoskeletal: Reports: No Symptoms Skin: Reports: No Symptoms Psychiatric: Reports: No Symptoms Neurological: Reports: No Symptoms Hematologic/Lymphatic: Reports: No Symptoms Immunologic: Reports: No Symptoms Exam - Exam Exam: See Below - Vital Signs Vital Signs: Last Vital Signs Temp 98.8 F 11/03/18 13:23 Pulse 72 11/03/18 13:23 Resp 20 11/03/18 13:23 BP 122/72 11/03/18 13:23 Pulse Ox 99 11/03/18 13:23 Weight: 202 lb 9.6 oz - Exam Quality Assessment: DVT Prophylaxis General: Alert, Oriented, 4 HEENT: PERRLA, Hearing Intact, Mucosa Moist & [place], Nares Patent, Normal Nasal Septum, Posterior Pharynx Clear, Conjunctiva Clear, EOMI, EACs Clear, TMs Clear Neck: Supple, Trachea Midline, 2 Lungs: Clear to Auscultation, Normal Respiratory Effort Cardiovascular: Regular Rate, Regular Rhythm GI/Abdominal Exam: Normal Bowel Sounds, Soft, Non-Tender, No Organomegaly, No Distention, No Abnormal Bruit, No Mass, Pelvis Stable (Female) Exam: Normal External Exam, Normal Speculum Exam, Normal Bimanual Exam Rectal (Female) Exam: Normal Exam, Normal Rectal Tone Back Exam: Normal Inspection, Full Range of Motion, NT Extremities: Normal Inspection, Normal Range of Motion, Non-Tender, No Pedal Edema, Normal Capillary Refill Skin: Warm, Dry, Intact Neurological: Cranial Nerves Intact, Reflexes Equal Bilateral Neuro Extensive - Mental Status: Alert, Oriented x3, Normal Mood/Affect, Normal Cognition Neuro Extensive - Motor, Sensory, Reflexes: CN II-XII Intact, Normal Gait, Normal Reflexes Psychiatric: Alert, Normal Affect, Normal Mood - Problem List (1) History of open sigmoidectomy SNOMED Code(s): 214581609 ICD Code: Z98.890 - OTHER SPECIFIED POSTPROCEDURAL STATES; Z90.49 - ACQUIRED ABSENCE OF OTHER SPECIFIED PARTS OF DIGESTIVE TRACT Status: Acute Current Visit: Yes (2) Abdominal pain SNOMED Code(s): 37247388 ICD Code: R10.9 - UNSPECIFIED ABDOMINAL PAIN Status: Acute Current Visit : No Qualifiers: Abdominal location: left lower quadrant Qualified Code(s): R10.32 - Left lower quadrant pain (3) Diabetes type 2, controlled SNOMED Code(s): 28189726, 948937463 ICD Code: E11.9 - TYPE 2 DIABETES MELLITUS WITHOUT COMPLICATIONS Status: Acute Current Visit: Yes (4) Hypertension SNOMED Code(s): 96193911 ICD Code: I10 - ESSENTIAL (PRIMARY) HYPERTENSION Status: Acute Current Visit: Yes Problem List Initiated/Reviewed/Updated: Yes Orders Last 24hrs: Active Orders 24 hr Category Date Time Status Consult to Occupational Therapy [OT Evaluation and Cons 11/03/18 13:57 Active Treatment] [CONS] Routine PT Evaluation and Treatment [CONS] Routine Cons 11/03/18 13:57 Active Assessment/Plan Comment:: S/p Sigmoidectomy Patient tolerating diet Monitor HTN Continue home medications DM-II controlled Continue home medications Obesity Advised on weight reduction measures Physical deconditioning PT/OT Diet Diabetic diet Code Full
[2018-11-03] MEDS: Acetaminophen/HYDROcodone 325-10 MG Tab PO PRN ×2 (16:38→23:38)
[2018-11-03 16:59] LABS: ANION GAP 16.3; CHLORIDE,CL 90 mmol/L (101-111); SODIUM,NA 129 mmol/L (135-145)
[2018-11-03] MEDS: Metoprolol Tartrate 25 MG Tab PO SCH (21:52)
[2018-11-03] MEDS: Heparin Sodium 5,000 Units/ML Vial SUBCUT SCH (21:56)
[2018-11-04] MEDS: Hydrochlorothiazide 25 MG Tab PO SCH (08:35)
[2018-11-04] MEDS: Metoprolol Tartrate 25 MG Tab PO SCH ×2 (08:35→20:55)
[2018-11-04] MEDS: amLODIPine 5 MG Tab PO SCH (08:36)
[2018-11-04] MEDS: Heparin Sodium 5,000 Units/ML Vial SUBCUT SCH ×2 (08:36→20:59)
[2018-11-04] MEDS: Acetaminophen/HYDROcodone 325-10 MG Tab PO PRN ×3 (08:39→20:55)
[2018-11-04] MEDS ORDERED: Potassium Chloride 10 MEQ Tab.ER PO SCH (09:00)
[2018-11-04] MEDS: Potassium Chloride 10 MEQ Tab.ER PO SCH (17:23)
[2018-11-04] MEDS: ESOMEPRAZOLE MAGNESIUM 20 MG PO SCH (19:11)
[2018-11-04] MEDS: Sodium Chloride 1 GM Tab PO SCH (20:54)
[2018-11-05] MEDS: Acetaminophen/HYDROcodone 325-10 MG Tab PO PRN ×2 (10:43→19:28)
[2018-11-05] MEDS: ESOMEPRAZOLE MAGNESIUM 20 MG PO SCH (10:47)
[2018-11-05] MEDS: Heparin Sodium 5,000 Units/ML Vial SUBCUT SCH ×2 (10:47→20:39)
[2018-11-05] MEDS: Potassium Chloride 10 MEQ Tab.ER PO SCH ×2 (10:47→17:25)
[2018-11-05] MEDS: Metoprolol Tartrate 25 MG Tab PO SCH ×2 (10:48→20:35)
[2018-11-05] MEDS: Hydrochlorothiazide 25 MG Tab PO SCH (10:48)
[2018-11-05] MEDS: Sodium Chloride 1 GM Tab PO SCH ×2 (10:48→20:35)
[2018-11-05] MEDS: amLODIPine 5 MG Tab PO SCH (10:48)
[2018-11-05] MEDS ORDERED: Menthol/Methyl Salicylate 85 GM Tube TOP PRN (15:43)
[2018-11-06] MEDS: Acetaminophen/HYDROcodone 325-10 MG Tab PO PRN ×3 (03:57→19:41)
[2018-11-06] MEDS: amLODIPine 5 MG Tab PO SCH (08:42)
[2018-11-06] MEDS: Hydrochlorothiazide 25 MG Tab PO SCH (08:43)
[2018-11-06] MEDS: Sodium Chloride 1 GM Tab PO SCH ×2 (08:43→21:19)
[2018-11-06] MEDS: Potassium Chloride 10 MEQ Tab.ER PO SCH ×2 (08:43→17:38)
[2018-11-06] MEDS: Metoprolol Tartrate 25 MG Tab PO SCH ×2 (08:43→21:19)
[2018-11-06] MEDS: ESOMEPRAZOLE MAGNESIUM 20 MG PO SCH (08:43)
[2018-11-06] MEDS: Heparin Sodium 5,000 Units/ML Vial SUBCUT SCH ×2 (08:44→21:19)
[2018-11-07] MEDS: Acetaminophen/HYDROcodone 325-10 MG Tab PO PRN ×2 (01:45→09:11)
[2018-11-07 06:55] LABS: ANION GAP 14.5; CHLORIDE,CL 91 mmol/L (101-111); SODIUM,NA 128 mmol/L (135-145)
[2018-11-07 07:37] VITALS: BP 99/60
[2018-11-07] MEDS: amLODIPine 5 MG Tab PO SCH (09:10)
[2018-11-07] MEDS: Hydrochlorothiazide 25 MG Tab PO SCH (09:11)
[2018-11-07] MEDS: Potassium Chloride 10 MEQ Tab.ER PO SCH (09:11)
[2018-11-07] MEDS: Metoprolol Tartrate 25 MG Tab PO SCH (09:11)
[2018-11-07] MEDS: Sodium Chloride 1 GM Tab PO SCH (09:11)
[2018-11-07] MEDS: Heparin Sodium 5,000 Units/ML Vial SUBCUT SCH (09:11)
[2018-11-07] MEDS: ESOMEPRAZOLE MAGNESIUM 20 MG PO SCH (09:12)
--- NOTE | 2018-11-07 12:11 | PCM.DCSUM1 ---
Discharge Summary - Hospital Course Free Text/Narrative:: Shanon David a 53 y.o.female with PMH of HTN, DM-II, recurrent diverticulitis. She was admitted to [facility] and had sigmoid colectomy, enterolysis with repair of ascending colon serosal injury, repair of incarcerated umbilical hernia. She did well post surgery. She was discharged to our swing bed to continue PT/OT for strengthening. Had an uneventful stay at [facility] and OK to discharge home. Will continue follow up with PCP in two days. Discharged with a quad cane. Diagnosis: Stroke: No Modified Geovanna Scale: Slight Disable;Unable to Carry Out Prev Act.Able to Look After Affairs (Quad cane prescribed) Modified Geovanna Scale Score: 2 - Discharge Data Discharge Date: 11/07/18 Discharge Disposition: Home, Self-Care 01 Condition: Good - Patient Summary/Data Consults: Consultations 11/03/18 13:57 Consult to Occupational Therapy [OT Evaluation and Treatment] [CONS] Routine PT Evaluation and Treatment [CONS] Routine - Patient Instructions Diet: Usual Diet as Tolerated Activity: As Tolerated - Discharge Plan Home Medications: Home Meds Metoprolol Tartrate 25 mg PO BID 05/27/18 [History] hydroCHLOROthiazide [Hydrochlorothiazide] 25 mg PO DAILY 05/27/18 [History] Esomeprazole Magnesium [Nexium 24Hr] 20 mg PO DAILY 07/20/18 [History] Hydrocodone/Acetaminophen [Lorcet Hd 10-325 mg Tablet] 1 tab PO Q6H PRN [History] Potassium Chloride [Klor-Con] 20 meq PO DAILY 11/03/18 [History] amLODIPine Besylate [Amlodipine Besylate] 5 mg PO DAILY 11/03/18 [History] Patient Handouts: Acetaminophen; Hydrocodone tablets or capsules, Open Colectomy, Care After, Diverticulitis, [id number] - Discharge Summary/Plan Comment DC Time >30 min.: Yes - Patient Data Vitals - Most Recent: Last Vital Signs Temp 36.3 C 11/07/18 07:36 Pulse 58 L 11/07/18 09:11 Resp 20 11/07/18 07:36 BP 99/60 11/07/18 09:11 Pulse Ox 98 11/07/18 07:36 Weight - Most Recent: 91.898 kg I&O - Last 24 hours: Intake & Output 11/06/18 11/07/18 11/07/18 22:59 06:59 14:59 Intake Total 800 Balance 800 Lab Results - Last 24 hrs: Laboratory Results - last 24 hr 11/07/18 11/07/18 Range/Units 06:28 06:28 WBC 9.2 (5.0-10.0) 10^3/uL RBC 3.86 L (4.2-5.4) 10^6/uL Hgb 11.8 L (12.0-16.0) g/dL Hct 36.7 L (37.0-47.0) % MCV 95.1 (80-100) fL MCH 30.6 (27.0-34.0) pg MCHC 32.2 L (33.0-35.0) g/dL Plt Count 500 H D (150-450) 10^3/uL Neut % (Auto) 63.8 (42.2-75.2) % Lymph % (Auto) 25.3 (20.5-50.1) % [place] % (Auto) 8.3 H (2-8) % Eos % (Auto) 2.3 (1.0-3.0) % Baso % (Auto) 0.3 (0.0-1.0) % Sodium 128 L (135-145) mmol/L Potassium 4.5 (3.6-5.0) mmol/L Chloride 91 L (101-111) mmol/L Carbon Dioxide 27.0 (21.0-31.0) mmol/L Anion Gap 14.5 BUN 14 (7-18) mg/dL Creatinine 0.8 (0.6-1.3) mg/dL Est Cr Clr Drug Dosing 62.84 mL/min Estimated GFR (MDRD) > 60 Glucose 105 (74-105) mg/dL Calcium 9.5 (8.4-10.2) mg/dl Med Orders - Current: Current Medications Hydrocodone Bitart/Acetaminophen (Branscomb 325-10 Mg) 1 tab PO Q6H PRN PRN Reason: Pain (moderate 4-6) Last Admin: 11/07/18 09:11 Dose: 1 tab Amlodipine Besylate (Norvasc) 5 mg PO DAILY FELICITA Last Admin: 11/07/18 09:10 Dose: 5 mg Heparin Sodium (Porcine) (Heparin Sodium) 5,000 units SUBCUT Q12HR [facility] Last Admin: 11/07/18 09:11 Dose: 5,000 units Hydrochlorothiazide (Hydrochlorothiazide) 25 mg PO DAILY [facility] Last Admin: 11/07/18 09:11 Dose: 25 mg Methyl Salicylate (Icy Hot Cream) 0 gm TOP QID PRN PRN Reason: Pain (mild 1-3) Last Admin: 11/06/18 08:44 Dose: 1 applic Metoprolol Tartrate (Lopressor) 25 mg PO BID [facility] Last Admin: 11/07/18 09:11 Dose: 25 mg Patient Own Med ( Esomeprazole Magnesium [Nexium 24hr] 20 Mg) 20 mg PO DAILY [facility] Last Admin: 11/07/18 09:12 Dose: 20 mg Potassium Chloride (Klor-Con 10) 20 meq PO BIDMEALS [facility] Last Admin: 11/07/18 09:11 Dose: 20 meq Sodium Chloride (Sodium Chloride) 1 gm PO BID [facility] Last Admin: 11/07/18 09:11 Dose: 1 gm Discontinued Medications Potassium Chloride (Klor-Con 10) 20 meq PO DAILY [facility] Last Admin: 11/04/18 08:35 Dose: 20 meq
== END 2018-11-07 13:04 | disposition home or self-care (01) | DRG 950 ==
LOC: UNDOADMIN 13:10 → DL.MS 13:10
PROVIDERS: ADMIT Student in an Organized Health Care Education/Training Program; ATTEND Student in an Organized Health Care Education/Training Program
PROC: F07Z9ZZ Gait Training/Functional Ambulation Treatment (ICD-10-PCS; principal; 2018-11-06)
PROC: F07M6ZZ Therapeutic Exercise Treatment of Musculoskeletal System - Whole Body (ICD-10-PCS; 2018-11-06)
PROC: F08Z4ZZ Home Management Treatment (ICD-10-PCS; 2018-11-06)
DX: Z48.815 Encounter for surgical aftercare following surgery on the digestive system (principal); I10 Essential (primary) hypertension; E11.9 Type 2 diabetes mellitus without complications; R10.32 Left lower quadrant pain; H54.7 Unspecified visual loss; J32.9 Chronic sinusitis, unspecified; K21.9 Gastro-esophageal reflux disease without esophagitis; G43.909 Migraine, unspecified, not intractable, without status migrainosus; E66.9 Obesity, unspecified; F17.210 Nicotine dependence, cigarettes, uncomplicated; Z90.49 Acquired absence of other specified parts of digestive tract; Z98.890 Other specified postprocedural states; Z79.899 Other long term (current) drug therapy; Z88.5 Allergy status to narcotic agent; Z98.42 Cataract extraction status, left eye; Z98.41 Cataract extraction status, right eye; Z98.51 Tubal ligation status; Z68.37 Body mass index [BMI] 37.0-37.9, adult
CPT/HCPCS: 36415; 80048; 85025; 94010; 97116-GP; 97162-GP; 97165-GO; 97530-GO; A9270-GY; J1644

== ENCOUNTER 2018-12-19 21:56 | Emergency (ER) | payer MEDICAID ==
[2018-12-19] MEDS ORDERED: Sodium Chloride 0.9% 10 ML Syringe FLUSH PRN (22:19)
--- NOTE | 2018-12-19 22:39 | EDM.PDOC ---
ED HPI GENERAL MEDICAL PROBLEM - General Chief Complaint: Wound Recheck Stated Complaint: HAD SURG. HAVING PAIN/BURNING ON CUT Time Seen by Provider: 12/19/18 22:38 Source of Information: Reports: Patient, RN, RN Notes Reviewed History Limitations: Reports: No Limitations - History of Present Illness INITIAL COMMENTS - FREE TEXT/NARRATIVE: Pt to ER with c/o burning and drainage from abdominal incision/wound. She states on Oct 25 she had a bowel resection and hernia repair. She states her BM' s have been normal, but feels as though her stomach is bloated. Admits to chills , fever of 100. Denies N/V/D. States she has a follow up appt with Dr. Kauffman in on 12/25. Onset: Gradual Treatments ASSOCIATE SALES REPRESENTATIVE: Reports: Acetaminophen Lower Abdominal Pain Score (Numeric/FACES): 10 - Related Data Allergies Allergy/AdvReac Type Severity Reaction Status Date / Time codeine AdvReac Nausea and Verified 12/19/18 22:08 Vomiting Home Meds: Home Meds Metoprolol Tartrate 25 mg PO BID 05/27/18 [History] hydroCHLOROthiazide [Hydrochlorothiazide] 25 mg PO DAILY 05/27/18 [History] Esomeprazole Magnesium [Nexium 24Hr] 20 mg PO DAILY 07/20/18 [History] Hydrocodone/Acetaminophen [Lorcet Hd 10-325 mg Tablet] 1 tab PO Q6H PRN [History] Potassium Chloride [Klor-Con] 20 meq PO DAILY 11/03/18 [History] amLODIPine Besylate [Amlodipine Besylate] 5 mg PO DAILY 11/03/18 [History] Past Medical History HEENT History: Reports: Cataract, Impaired Vision, Sinusitis Cardiovascular History: Reports: Hypertension Respiratory History: Reports: Bronchitis, Recurrent Gastrointestinal History: Reports: GERD, Other (See Below) Other Gastrointestinal History: diverticulitis Genitourinary History: Reports: None APPRAISAL TECHNICIAN History: Reports: , Spontaneous Other APPRAISAL TECHNICIAN History: 2 NVD, 4 miscarriages Musculoskeletal History: Reports: Fracture, Other (See Below) Other Musculoskeletal History: left 5th toe jun 2015. heel spurs left Neurological History: Reports: Migraines Psychiatric History: Reports: None Endocrine/Metabolic History: Reports: Obesity/BMI 30+ Hematologic History: Reports: None Immunologic History: Reports: None Oncologic (Cancer) History: Reports: None Dermatologic History: Reports: None - Infectious Disease History Infectious Disease History: Reports: None - Past Surgical History Head Surgeries/Procedures: Reports: None HEENT Surgical History: Reports: Adenoidectomy, Cataract Surgery, Eye Surgery, Tonsillectomy Other HEENT Surgeries/Procedures: bilateal cataract surgery Cardiovascular Surgical History: Reports: None Respiratory Surgical History: Reports: None GI Surgical History: Reports: Cholecystectomy, Colonoscopy, EGD, Other (See Below) Other GI Surgeries/Procedures: sigmoidectomy oct 2018 Female Surgical History: Reports: Tubal Ligation Endocrine Surgical History: Reports: None Neurological Surgical History: Reports: None Musculoskeletal Surgical History: Reports: None Dermatological Surgical History: Reports: None Social & Family History - Family History Family Medical History: Noncontributory - Caffeine Use Caffeine Use: Reports: Coffee, Soda Caffeine Use Comment: 2 cups coffee. 4L daily ED ROS GENERAL - Review of Systems Review Of Systems: ROS reveals no pertinent complaints other than HPI. ED EXAM, SKIN/RASH Exam: See Below Exam Limited By: No Limitations General Appearance: Alert, WD/WN, No Apparent Distress Eye Exam: Bilateral Eye: EOMI, Normal Inspection Ears: Normal External Exam, Hearing Grossly Normal Nose: Normal Inspection Throat/Mouth: Normal Inspection, Normal Voice, No Airway Compromise Head: Atraumatic, Normocephalic Neck: Normal Inspection, Supple, Non-Tender, Full Range of Motion Respiratory/Chest: No Respiratory Distress, No Accessory Muscle Use, Chest Non- Tender, Decreased Breath Sounds Cardiovascular: Normal Peripheral Pulses, Regular Rate, Rhythm, No Edema, No Gallop, No JVD, No Murmur, No Rub Peripheral Pulses: 2+: Radial (L), Radial (R) GI/Abdominal: Normal Bowel Sounds, Soft, Distended, Guarding, Tender (throughout ) (Female) Exam: Deferred Rectal (Female) Exam: Deferred Back Exam: Normal Inspection, Full Range of Motion, NT Extremities: Normal Inspection, Normal Range of Motion, Non-Tender, No Pedal Edema, Normal Capillary Refill Neurological: Alert, Oriented, CN II-XII Intact, Normal Cognition, Normal Gait, Normal Reflexes, No Motor/Sensory Deficits Psychiatric: Normal Affect, Normal Mood Skin: Warm, Wound/Incision (excoriated area at umbilical, small amount of yellow drainage, odorous), Other (Small hole that patient had been packing, no longer packing, moist and excoriated.) Location, Skin: Abdomen Characteristics: Erythematous Associated features: Tenderness, Crusting, Weeping Lymphatic: No Adenopathy Course - Vital Signs Last Recorded V/S: Last Vital Signs Temp 96.2 F 12/19/18 22:40 Pulse 99 12/19/18 22:40 Resp 20 12/19/18 22:40 BP 160/89 H 12/19/18 22:40 Pulse Ox 98 12/19/18 22:40 - Orders/Labs/Meds Orders: Active Orders 24 hr Category Date Time Status Peripheral IV Care [RC] . DIRECTED Care 12/19/18 22:21 Active CULTURE WOUND [RM] Urgent Lab 12/19/18 22:24 Received Sodium Chloride 0.9% [Saline Flush] Med 12/19/18 22:19 Active 10 ml FLUSH ASDIRECTED PRN Peripheral IV Insertion Adult [OM.PC] Stat Oth 12/19/18 22:19 Ordered Medication Orders Sodium Chloride (Saline Flush) 10 ml FLUSH ASDIRECTED PRN PRN Reason: Keep Vein Open Last Admin: 12/19/18 23:47 Dose: 10 ml Labs: Laboratory Tests 12/19/18 12/19/18 12/19/18 Range/Units 22:28 22:28 22:28 WBC 7.9 (5.0-10.0) 10^3/uL RBC 3.68 L (4.2-5.4) 10^6/uL Hgb 11.5 L (12.0-16.0) g/dL Hct 35.2 L (37.0-47.0) % MCV 95.7 (80-100) fL MCH 31.3 (27.0-34.0) pg MCHC 32.7 L (33.0-35.0) g/dL Plt Count 243 D (150-450) 10^3/uL Neut % (Auto) 52.2 (42.2-75.2) % Lymph % (Auto) 40.2 (20.5-50.1) % [place] % (Auto) 6.0 (2-8) % Eos % (Auto) 1.3 (1.0-3.0) % Baso % (Auto) 0.3 (0.0-1.0) % Sodium 138 (135-145) mmol/L Potassium 2.3 L* D (3.6-5.0) mmol/L Chloride 104 D (101-111) mmol/L Carbon Dioxide 22.0 (21.0-31.0) mmol/L Anion Gap 14.3 BUN 5 L (7-18) mg/dL Creatinine 0.6 (0.6-1.3) mg/dL Est Cr Clr Drug Dosing 83.79 mL/min Estimated GFR (MDRD) > 60 BUN/Creatinine Ratio 8.33 Glucose 97 (74-105) mg/dL Calcium 8.8 D (8.4-10.2) mg/dl Magnesium 1.7 L (1.8-2.5) mg/dL Total Bilirubin 0.7 (0.2-1.0) mg/dL AST 23 (10-42) IU/L ALT 14 (10-60) IU/L Alkaline Phosphatase 155 H (42-121) IU/L Total Protein 6.6 L (6.7-8.2) g/dl Albumin 3.3 (3.2-5.5) g/dl Globulin 3.3 Albumin/Globulin Ratio 1.00 Urine Color (YELLOW) Urine Appearance (CLEAR) Urine pH (5.0-9.0) Ur Specific [place] (1.005-1.030) Urine Protein (NEGATIVE) Urine Glucose (UA) (NEGATIVE) Urine Ketones (NEGATIVE) Urine Occult Blood (NEGATIVE) Urine Nitrite (NEGATIVE) Urine Bilirubin (NEGATIVE) Urine Urobilinogen (0.2-1.0) mg/dL Ur Leukocyte Esterase (NEGATIVE) Urine RBC /HPF Urine WBC (0-5/HPF) /HPF Ur Epithelial Cells /HPF Urine Bacteria (0-FEW/HPF) /HPF Urine Opiates Screen (NEGATIVE) Ur Oxycodone Screen (NEGATIVE) Urine Methadone Screen (NEGATIVE) Ur Barbiturates Screen (NEGATIVE) U Tricyclic Antidepress (NEGATIVE) Ur Phencyclidine Scrn (NEGATIVE) Ur Amphetamine Screen (NEGATIVE) U Methamphetamines Scrn (NEGATIVE) Urine MDMA Screen (NEGATIVE) U Benzodiazepines Scrn (NEGATIVE) Urine Cocaine Screen (NEGATIVE) U Marijuana (THC) Screen (NEGATIVE) Ethyl Alcohol 273 mg/dL 12/19/18 12/19/18 12/20/18 Range/Units 23:40 23:40 02:12 WBC (5.0-10.0) 10^3/uL RBC (4.2-5.4) 10^6/uL Hgb (12.0-16.0) g/dL Hct (37.0-47.0) % MCV (80-100) fL MCH (27.0-34.0) pg MCHC (33.0-35.0) g/dL Plt Count (150-450) 10^3/uL Neut % (Auto) (42.2-75.2) % Lymph % (Auto) (20.5-50.1) % [place] % (Auto) (2-8) % Eos % (Auto) (1.0-3.0) % Baso % (Auto) (0.0-1.0) % Sodium 138 (135-145) mmol/L Potassium 3.1 L (3.6-5.0) mmol/L Chloride 103 (101-111) mmol/L Carbon Dioxide 23.0 (21.0-31.0) mmol/L Anion Gap 15.1 BUN 4 L (7-18) mg/dL Creatinine 0.6 (0.6-1.3) mg/dL Est Cr Clr Drug Dosing 83.79 mL/min Estimated GFR (MDRD) > 60 BUN/Creatinine Ratio Glucose 84 (74-105) mg/dL Calcium 8.1 L (8.4-10.2) mg/dl Magnesium (1.8-2.5) mg/dL Total Bilirubin (0.2-1.0) mg/dL AST (10-42) IU/L ALT (10-60) IU/L Alkaline Phosphatase (42-121) IU/L Total Protein (6.7-8.2) g/dl Albumin (3.2-5.5) g/dl Globulin Albumin/Globulin Ratio Urine Color Yellow (YELLOW) Urine Appearance Clear (CLEAR) Urine pH 6.5 (5.0-9.0) Ur Specific [place] 1.010 (1.005-1.030) Urine Protein Negative (NEGATIVE) Urine Glucose (UA) Negative (NEGATIVE) Urine Ketones Negative (NEGATIVE) Urine Occult Blood Small H (NEGATIVE) Urine Nitrite Negative (NEGATIVE) Urine Bilirubin Negative (NEGATIVE) Urine Urobilinogen 0.2 (0.2-1.0) mg/dL Ur Leukocyte Esterase Negative (NEGATIVE) Urine RBC 5-10 H /HPF Urine WBC 0-5 (0-5/HPF) /HPF Ur Epithelial Cells Few /HPF Urine Bacteria Few (0-FEW/HPF) /HPF Urine Opiates Screen Negative (NEGATIVE) Ur Oxycodone Screen Negative (NEGATIVE) Urine Methadone Screen Negative (NEGATIVE) Ur Barbiturates Screen Negative (NEGATIVE) U Tricyclic Antidepress Negative (NEGATIVE) Ur Phencyclidine Scrn Negative (NEGATIVE) Ur Amphetamine Screen Negative (NEGATIVE) U Methamphetamines Scrn Negative (NEGATIVE) Urine MDMA Screen Negative (NEGATIVE) U Benzodiazepines Scrn Negative (NEGATIVE) Urine Cocaine Screen Negative (NEGATIVE) U Marijuana (THC) Screen Negative (NEGATIVE) Ethyl Alcohol 174 mg/dL Meds: Medications Generic Name Dose Route Start Last Admin Trade Name Freq PRN Reason Stop Dose Admin Sodium Chloride 10 ml 12/19/18 22:19 12/19/18 23:47 Saline Flush FLUSH 10 ml ASDIRECTED PRN Administration Keep Vein Open Discontinued Medications Generic Name Dose Route Start Last Admin Trade Name Freq PRN Reason Stop Dose Admin Cephalexin 500 mg 12/20/18 00:38 12/20/18 01:25 Keflex PO 12/20/18 00:39 500 mg ONETIME ONE Administration Potassium Chloride 20 meq/ 100 mls @ 50 mls/hr 12/19/18 23:18 12/19/18 23:52 Premix IV 12/20/18 01:17 50 mls/hr ONETIME ONE Administration Sodium Chloride 1,000 mls @ 999 mls/hr 12/19/18 23:17 12/19/18 23:51 Normal Saline IV 12/20/18 00:17 999 mls/hr .BOLUS ONE Administration Iopamidol 100 ml 12/19/18 23:20 12/19/18 23:45 Isovue-300 (61%) IVPUSH 12/19/18 23:21 99 ml ONETIME ONE Administration Potassium Chloride 40 meq 12/20/18 00:38 12/20/18 01:25 Klor-Con 10 PO 12/20/18 00:39 40 meq ONETIME ONE Administration - Radiology Interpretation Free Text/Narrative:: CT abdomen/pelvis with contrast: FINDINGS: Lower thorax: A 4 mm nodule within the right lower lobe on image 1 of series 2 is unchanged. Mild dependent atelectasis is present within the posterior lung bases. There is a moderate hiatal hernia. ABDOMEN: Liver: Normal. No mass. Gallbladder and bile ducts: The patient is status post cholecystectomy. Pancreas: Normal. No ductal dilation. Spleen: Normal. No splenomegaly. Adrenals: There is multilobulated benign adenomatous enlargement of the adrenal glands. No focal nodule. Kidneys and ureters: Normal. No hydronephrosis. Stomach and bowel: There is wall thickening involving the sigmoid colon. There is also wall thickening involving the cecum and ascending colon. Appendix: A normal appendix is identified. PELVIS: Bladder: Unremarkable as visualized. Reproductive: Unremarkable as visualized. ABDOMEN and PELVIS: Intraperitoneal space: Normal. No free air. No significant fluid collection. Bones/joints: Mild spondylitic changes are present within the spine. No acute osseous injury is noted. Soft tissues: Postsurgical inflammatory changes are noted along the anterior abdominal wall. No encapsulated fluid collection. There is a fat containing periumbilical hernia, unchanged. Vasculature: Moderate calcific atherosclerosis is noted involving the aortoiliac tree. The aorta is not enlarged. Lymph nodes: Normal. No enlarged lymph nodes. IMPRESSION: 1. Wall thickening involving the sigmoid colon and cecum and ascending colon. This gas also been seen on previous exams and may represent chronic inflammatory change. Appearance is also consistent with recurrent or acute infectious or inflammatory colitis. 2. Moderate hiatal hernia. 3.Incidental, non-urgent findings as above. See rad report Departure - Departure Time of Disposition: 02:51 Disposition: Home, Self-Care 01 Condition: Fair Clinical Impression: Alcohol intoxication, Hypokalemia Abdominal pain Qualifiers: Abdominal location: left lower quadrant Qualified Code(s): R10.32 - Left lower quadrant pain - Discharge Information *PRESCRIPTION DRUG MONITORING PROGRAM REVIEWED*: No *COPY OF PRESCRIPTION DRUG MONITORING REPORT IN PATIENT ANA: No Instructions: Alcohol Intoxication, Xabh-af-Agmt, Abdominal Pain, Adult, Easy- to-Read, Potassium Content of Foods, Hypokalemia Forms: ED Department Discharge Additional Instructions: Follow up with Dr. Kauffman on Tuesday Take your potassium medication as directed RX: Keflex (Cephalexin) Take your CT report for Dr. Kauffman to look at Return to the ER or to your primary care clinic with any further problems - My Orders Last 24 Hours: My Active Orders 12/19/18 22:19 Sodium Chloride 0.9% [Saline Flush] 10 ml FLUSH ASDIRECTED PRN Peripheral IV Insertion Adult [OM.PC] Stat 12/19/18 22:21 Peripheral IV Care [RC] . DIRECTED 12/19/18 22:24 CULTURE WOUND [RM] Urgent - Assessment/Plan Last 24 Hours: My Active Orders 12/19/18 22:19 Sodium Chloride 0.9% [Saline Flush] 10 ml FLUSH ASDIRECTED PRN Peripheral IV Insertion Adult [OM.PC] Stat 12/19/18 22:21 Peripheral IV Care [RC] . DIRECTED 12/19/18 22:24 CULTURE WOUND [RM] Urgent
[2018-12-19 22:41] VITALS: BP 160/89
[2018-12-19 23:09] LABS: CHLORIDE,CL 104 mmol/L (101-111); SODIUM,NA 138 mmol/L (135-145)
[2018-12-19 23:16] LABS: ANION GAP 14.3
[2018-12-19] MEDS ORDERED: Sodium Chloride 0.9% 1,000 ML IV ONE (23:17)
[2018-12-19] MEDS ORDERED: Potassium Chloride 20 MEQ in Premix Bag 1 BAG IV ONE (23:18)
[2018-12-19] MEDS ORDERED: Iopamidol 612 MG/ML 100 ML Bottle IVPUSH ONE (23:20)
[2018-12-20] MEDS ORDERED: Potassium Chloride 10 MEQ Tab.ER PO ONE (00:38)
[2018-12-20] MEDS ORDERED: Cephalexin 500 MG Cap PO ONE (00:38)
[2018-12-20 02:37] LABS: ANION GAP 15.1; CHLORIDE,CL 103 mmol/L (101-111); SODIUM,NA 138 mmol/L (135-145)
== END 2018-12-20 03:00 | disposition home or self-care (01) ==
LOC: DL.ED 21:56
DX: F10.129 Alcohol abuse with intoxication, unspecified (principal); Y90.6 Blood alcohol level of 120-199 mg/100 ml; E87.6 Hypokalemia; I10 Essential (primary) hypertension; K21.9 Gastro-esophageal reflux disease without esophagitis; Z79.899 Other long term (current) drug therapy; Z88.5 Allergy status to narcotic agent
CPT/HCPCS: 36415; 74177; 80048; 80053; 80305-QW; 81001; 81003; 83735; 85025; 87070; 87077; 87186; 96365; 96367; 99284-25; A9270-GY; G0480; J3480; J7030; Q9967

== ENCOUNTER 2019-04-27 03:01 | Emergency (ER) | payer MEDICAID ==
[2019-04-27] MEDS ORDERED: Albuterol 6.7 GM Inhaler INH ONE ×2 (03:02→03:39)
[2019-04-27] MEDS ORDERED: methylPREDNISolone Sodium Succinate 125 MG/2 ML SDV IM ONE (03:08)
[2019-04-27] MEDS ORDERED: Albuterol/Ipratropium 3.0-0.5 MG/3 ML Neb Soln NEB ONE (03:08)
--- NOTE | 2019-04-27 03:14 | EDM.PDOC ---
ED HPI GENERAL MEDICAL PROBLEM - General Chief Complaint: Respiratory Problem Stated Complaint: HARD TIME BREATHING Time Seen by Provider: 04/27/19 03:10 Source of Information: Reports: Patient History Limitations: Reports: No Limitations - History of Present Illness INITIAL COMMENTS - FREE TEXT/NARRATIVE: 3 weeks h/o wheezing , has asthma no neb machines. worse tonight. has no insurance and unable to see clinic. not taking any of her Rx. denies CP except when coughs. Middle Thoracic Pain Score (Numeric/FACES): 3 - Related Data Allergies Allergy/AdvReac Type Severity Reaction Status Date / Time codeine AdvReac Nausea and Verified 04/27/19 03:11 Vomiting Home Meds: Home Meds Esomeprazole Magnesium [Nexium 24Hr] 20 mg PO DAILY 07/20/18 [History] Past Medical History HEENT History: Reports: Cataract, Impaired Vision, Sinusitis Cardiovascular History: Reports: Hypertension Respiratory History: Reports: Bronchitis, Recurrent Gastrointestinal History: Reports: GERD, Other (See Below) Other Gastrointestinal History: diverticulitis Genitourinary History: Reports: None NURSING INFORMATICS SPECIALIST History: Reports: , Spontaneous Other NURSING INFORMATICS SPECIALIST History: 2 NVD, 4 miscarriages Musculoskeletal History: Reports: Fracture, Other (See Below) Other Musculoskeletal History: left 5th toe jun 2015. heel spurs left Neurological History: Reports: Migraines Psychiatric History: Reports: None Endocrine/Metabolic History: Reports: Obesity/BMI 30+ Hematologic History: Reports: None Immunologic History: Reports: None Oncologic (Cancer) History: Reports: None Dermatologic History: Reports: None - Infectious Disease History Infectious Disease History: Reports: None - Past Surgical History Head Surgeries/Procedures: Reports: None HEENT Surgical History: Reports: Adenoidectomy, Cataract Surgery, Eye Surgery, Tonsillectomy Other HEENT Surgeries/Procedures: bilateal cataract surgery Cardiovascular Surgical History: Reports: None Respiratory Surgical History: Reports: None GI Surgical History: Reports: Cholecystectomy, Colonoscopy, EGD, Other (See Below) Other GI Surgeries/Procedures: sigmoidectomy oct 2018 Female Surgical History: Reports: Tubal Ligation Endocrine Surgical History: Reports: None Neurological Surgical History: Reports: None Musculoskeletal Surgical History: Reports: None Dermatological Surgical History: Reports: None Social & Family History - Family History Family Medical History: Noncontributory - Caffeine Use Caffeine Use: Reports: Coffee, Soda Caffeine Use Comment: 2 cups coffee. 4L daily ED ROS GENERAL - Review of Systems Review Of Systems: ROS reveals no pertinent complaints other than HPI. ED EXAM, GENERAL - Physical Exam Exam: See Below Exam Limited By: No Limitations General Appearance: Alert, WD/WN, Mild Distress, Other (wheeze) Ears: Hearing Grossly Normal Throat/Mouth: Normal Voice, No Airway Compromise Head: Atraumatic Neck: Non-Tender, Full Range of Motion Respiratory/Chest: Decreased Breath Sounds, Rhonchi, Wheezing Cardiovascular: Regular Rate, Rhythm GI/Abdominal: Soft, Non-Tender Neurological: Alert, Oriented, Normal Cognition, Normal Gait, No Motor/Sensory Deficits Psychiatric: Flat Affect Skin Exam: Warm, Dry, Normal Color Lymphatic: No Adenopathy Course - Vital Signs Last Recorded V/S: Last Vital Signs Temp 36.3 C 04/27/19 03:18 Pulse 82 04/27/19 03:18 Resp 30 H 04/27/19 03:18 BP 156/85 H 04/27/19 03:18 Pulse Ox 98 04/27/19 03:18 - Orders/Labs/Meds Orders: Active Orders 24 hr Category Date Time Status RT Aerosol Therapy [RC] ASDIRECTED Care 04/27/19 03:09 Active Meds: Medications Discontinued Medications Generic Name Dose Route Start Last Admin Trade Name Dona PRN Reason Stop Dose Admin Albuterol/Ipratropium 3 ml 04/27/19 03:08 04/27/19 03:13 Duoneb 3.0-0.5 Mg/3 Ml NEB 04/27/19 03:09 3 ml ONETIME ONE Administration Benzonatate 100 mg 04/27/19 03:34 Tessalon Perles PO 04/27/19 03:35 ONETIME ONE Methylprednisolone Sodium Succinate 125 mg 04/27/19 03:08 04/27/19 03:15 Solu-Medrol IM 04/27/19 03:09 125 mg ONETIME ONE Administration - Re-Assessments/Exams Free Text/Narrative Re-Assessment/Exam: 04/27/19 03:35 re-exam; s/p neb + IM solumed = 90% cleared Departure - Departure Time of Disposition: 03:36 Disposition: Home, Self-Care 01 Condition: Good Clinical Impression: Exacerbation of asthma Qualifiers: Asthma severity: moderate Asthma persistence: unspecified Qualified Code(s): J45.901 - Unspecified asthma with (acute) exacerbation - Discharge Information Instructions: Asthma, Adult, [id number] Forms: ED Department Discharge Additional Instructions: 1) don't sleep flat at night 2) drink lots of liquids 3) follow up with clinic rx togo; albuterol inhaler rx given; tessalon pearle 100mg bid prn x 12 medrol dospak - My Orders Last 24 Hours: My Active Orders 04/27/19 03:09 RT Aerosol Therapy [RC] ASDIRECTED - Assessment/Plan Last 24 Hours: My Active Orders 04/27/19 03:09 RT Aerosol Therapy [RC] ASDIRECTED
[2019-04-27 03:19] VITALS: BP 156/85
[2019-04-27] MEDS ORDERED: Benzonatate 100 MG Cap PO ONE (03:34)
== END 2019-04-27 03:45 | disposition home or self-care (01) ==
LOC: DL.ED 03:01
DX: J45.901 Unspecified asthma with (acute) exacerbation (principal); I10 Essential (primary) hypertension; E66.9 Obesity, unspecified; K21.9 Gastro-esophageal reflux disease without esophagitis; Z98.890 Other specified postprocedural states; Z98.41 Cataract extraction status, right eye; Z98.42 Cataract extraction status, left eye; Z90.49 Acquired absence of other specified parts of digestive tract; Z98.51 Tubal ligation status; Z79.899 Other long term (current) drug therapy; Z88.5 Allergy status to narcotic agent
CPT/HCPCS: 94640; 96372; 99284; A9270; J2930; J7620-GY

== ENCOUNTER 2019-07-04 15:21 | Emergency (ER) | payer OTHER, MEDICAID ==
[2019-07-04 15:42] VITALS: BP 205/98; PULSE 87
--- NOTE | 2019-07-04 15:44 | EDM.PDOC ---
ED HPI GENERAL MEDICAL PROBLEM - General Chief Complaint: Back Pain or Injury Stated Complaint: HURT HER LOWER BACK AT WORK Time Seen by Provider: 07/04/19 15:30 Source of Information: Reports: Patient History Limitations: Reports: No Limitations - History of Present Illness INITIAL COMMENTS - FREE TEXT/NARRATIVE: This 54 yo female patient reports to the ED with lower back pain that radiates down the left leg. The patient reports she as lifting a water bath while at work ([employer]) on Tuesday (07/02/19) when she heard a "snap" in her back. The patient has been experiencing increased pain with movement since that time. The patient reports she has been taking Aleve, using a heating pad and using IcyHot with little to no relief. The patient reports no previous injuries to her lower back. 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 - Related Data Allergies Allergy/AdvReac Type Severity Reaction Status Date / Time codeine AdvReac Nausea and Verified 07/04/19 15:29 Vomiting Home Meds: Home Meds Esomeprazole Magnesium [Nexium 24Hr] 20 mg PO DAILY 07/20/18 [History] Fluticasone/Vilanterol [Breo Ellipta 100-25 MCG Inhalation Kit] 1 puff PO DAILY 06/18/19 [History] Metoprolol Tartrate 25 mg PO DAILY 06/18/19 [History] amLODIPine Besylate [Amlodipine Besylate] 5 mg PO DAILY 06/18/19 [History] hydroCHLOROthiazide [Hydrochlorothiazide] 25 mg PO DAILY 06/18/19 [History] Past Medical History HEENT History: Reports: Cataract, Impaired Vision, Sinusitis Cardiovascular History: Reports: Hypertension Respiratory History: Reports: Bronchitis, Recurrent Gastrointestinal History: Reports: GERD, Other (See Below) Other Gastrointestinal History: diverticulitis Genitourinary History: Reports: None 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 heel spurs left Neurological History: Reports: Migraines Psychiatric History: Reports: None Endocrine/Metabolic History: Reports: Obesity/BMI 30+ Hematologic History: Reports: None Immunologic History: Reports: None Oncologic (Cancer) History: Reports: None Dermatologic History: Reports: None - Infectious Disease History Infectious Disease History: Reports: None - Past Surgical History Head Surgeries/Procedures: Reports: None HEENT Surgical History: Reports: Adenoidectomy, Cataract Surgery, Eye Surgery, Tonsillectomy Other HEENT Surgeries/Procedures: bilateal cataract surgery Cardiovascular Surgical History: Reports: None Respiratory Surgical History: Reports: None GI Surgical History: Reports: Cholecystectomy, Colonoscopy, EGD, Other (See Below) Other GI Surgeries/Procedures: sigmoidectomy oct 2018 Female Surgical History: Reports: Tubal Ligation Endocrine Surgical History: Reports: None Neurological Surgical History: Reports: None Musculoskeletal Surgical History: Reports: None Dermatological Surgical History: Reports: None Social & Family History - Family History Family Medical History: Noncontributory - Caffeine Use Caffeine Use: Reports: Coffee, Soda Caffeine Use Comment: 2 cups coffee. 4L daily ED ROS GENERAL - Review of Systems Review Of Systems: ROS reveals no pertinent complaints other than HPI. ED EXAM,LOWER BACK PAIN/INJURY - Physical Exam Exam: See Below Exam Limited By: No Limitations General Appearance: Alert, WD/WN Eye Exam: Bilateral Eye: EOMI, Normal Inspection, PERRL Ears: Normal External Exam, Normal Canal, Hearing Grossly Normal, Normal TMs Nose: Normal Inspection, Normal Mucosa, No Blood Throat/Mouth: Normal Inspection, Normal Lips, Normal Teeth, Normal Gums, Normal Oropharynx, Normal Voice, No Airway Compromise Head: Atraumatic, Normocephalic Neck: Normal Inspection, Supple, Non-Tender, Full Range of Motion Respiratory/Chest: No Respiratory Distress, Lungs Clear, Normal Breath Sounds, No Accessory Muscle Use, Chest Non-Tender Cardiovascular: Normal Peripheral Pulses, Regular Rate, Rhythm, No Edema, No Gallop, No JVD, No Murmur, No Rub GI/Abdominal: Normal Bowel Sounds, Soft, Non-Tender, No Organomegaly, No Distention, No Abnormal Bruit, No Mass (Female) Exam: Deferred Rectal (Female) Exam: Deferred Back Exam: Muscle Spasm Extremities: Leg Pain (left lateral hip and leg pain with movement) Neurological: Alert, Normal Mood/Affect, Normal Dorsiflexion, CN II-XII Intact, Normal Plantar Flexion, Normal Gait, Normal Reflexes, No Motor/Sensory Deficits , Oriented x 3 Psychiatric: Normal Affect, Normal Mood Skin Exam: Warm, Dry, Intact, Normal Color, No Rash Lymphatic: No Adenopathy Course - Vital Signs Last Recorded V/S: Last Vital Signs Temp 36.6 C 07/04/19 15:32 Pulse 87 07/04/19 15:32 Resp 20 07/04/19 15:32 BP 205/98 H 07/04/19 15:32 Pulse Ox 98 07/04/19 15:32 Departure - Departure Time of Disposition: 15:41 Disposition: Home, Self-Care 01 Condition: Fair Clinical Impression: Low back pain with sciatica Qualifiers: Chronicity: acute Back pain laterality: left Sciatica laterality: sciatica of left side Qualified Code(s): M54.42 - Lumbago with sciatica, left side - Discharge Information *PRESCRIPTION DRUG MONITORING PROGRAM REVIEWED*: Not Applicable *COPY OF PRESCRIPTION DRUG MONITORING REPORT IN PATIENT ANA: Not Applicable Instructions: Back Injury Prevention, [id number], Sciatica Forms: ED Department Discharge Care Plan Goals: The patient was advised of the examination results during the visit. The patient was discharged with scripts for Prednisone (20 mg) #10 to take 2 by mouth for 5 days and Flexeril (5 mg) #10 to take 1 by mouth at bedtime as needed. The patient may take [id number] medications for temporary symptom relief. If the patient has any additional symptoms or concerns, the patient should either return to the emergency department or visit his primary care facility.
== END 2019-07-04 15:55 | disposition home or self-care (01) ==
LOC: DL.ED 15:21
DX: M54.42 Lumbago with sciatica, left side (principal); I10 Essential (primary) hypertension; E66.9 Obesity, unspecified; Z88.5 Allergy status to narcotic agent; Z79.899 Other long term (current) drug therapy; Z68.30 Body mass index [BMI] 30.0-30.9, adult; X50.0XXA Overexertion from strenuous movement or load, initial encounter; Y99.0 Civilian activity done for income or pay
CPT/HCPCS: 99283

== ENCOUNTER 2019-12-07 16:13 | Observation (INO) | payer MEDICAID ==
--- NOTE | 2019-12-07 17:29 | EDM.PDOC ---
ED HPI GENERAL MEDICAL PROBLEM - General Chief Complaint: General Stated Complaint: potassium low/white blood count high Time Seen by Provider: 12/07/19 17:29 Source of Information: Reports: Patient, Old Records, RN, RN Notes Reviewed History Limitations: Reports: No Limitations - History of Present Illness INITIAL COMMENTS - FREE TEXT/NARRATIVE: Pt presents to ER sent from clinic by Daphne Godinez NP with intent to be evaluated in ER for possible admission due to cough and wheezing x1 week and hypokalemia. Pt had outpt. lab draw and chest x-ray here in the hospital at 1500HRS today. Pt states she has been admitted in the past for low potassium. Pt denies fever, chest pain, or dyspnea. Pt was confirmed Covid-19 negative result today. Duration: Day(s): (5) Location: Reports: Generalized Severity: Moderate Improves with: Reports: None Worsens with: Reports: None - Related Data Allergies Allergy/AdvReac Type Severity Reaction Status Date / Time codeine AdvReac Nausea and Verified 12/07/19 16:39 Vomiting Home Meds: Home Meds Esomeprazole Magnesium [Nexium 24Hr] 20 mg PO DAILY 07/20/18 [History] Fluticasone/Vilanterol [Breo Ellipta 100-25 MCG Inhalation Kit] 1 puff PO DAILY 06/18/19 [History] Metoprolol Tartrate 25 mg PO DAILY 06/18/19 [History] amLODIPine Besylate [Amlodipine Besylate] 5 mg PO DAILY 06/18/19 [History] hydroCHLOROthiazide [Hydrochlorothiazide] 25 mg PO DAILY 06/18/19 [History] Past Medical History HEENT History: Reports: Cataract, Impaired Vision, Sinusitis Cardiovascular History: Reports: Hypertension Respiratory History: Reports: Bronchitis, Recurrent Gastrointestinal History: Reports: GERD, Other (See Below) Other Gastrointestinal History: diverticulitis Genitourinary History: Reports: None 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 heel spurs left Neurological History: Reports: Migraines Psychiatric History: Reports: None Endocrine/Metabolic History: Reports: Obesity/BMI 30+ Hematologic History: Reports: None Immunologic History: Reports: None Oncologic (Cancer) History: Reports: None Dermatologic History: Reports: None - Infectious Disease History Infectious Disease History: Reports: None - Past Surgical History Head Surgeries/Procedures: Reports: None HEENT Surgical History: Reports: Adenoidectomy, Cataract Surgery, Eye Surgery, Tonsillectomy Other HEENT Surgeries/Procedures: bilateal cataract surgery Cardiovascular Surgical History: Reports: None Respiratory Surgical History: Reports: None GI Surgical History: Reports: Cholecystectomy, Colonoscopy, EGD, Other (See Below) Other GI Surgeries/Procedures: sigmoidectomy oct 2018 Female Surgical History: Reports: Tubal Ligation Endocrine Surgical History: Reports: None Neurological Surgical History: Reports: None Musculoskeletal Surgical History: Reports: None Dermatological Surgical History: Reports: None Social & Family History - Family History Family Medical History: Noncontributory - Tobacco Use Smoking Status *Q: Current Every Day Smoker Years of Tobacco use: 40 Packs/Tins Daily: 0.5 - Caffeine Use Caffeine Use: Reports: Coffee, Soda Caffeine Use Comment: 2 cups coffee. 4L daily - Recreational Drug Use Recreational Drug Use: No - Living Situation & Occupation Living situation: Reports: Alone ED ROS GENERAL - Review of Systems Review Of Systems: Comprehensive ROS is negative, except as noted in HPI. ED EXAM, GENERAL - Physical Exam Exam: See Below Exam Limited By: No Limitations General Appearance: Alert, No Apparent Distress, Obese Eye Exam: Left Eye: Abnormal EOM (chronic left lazy eye) Ears: Hearing Grossly Normal Nose: Normal Inspection, Normal Mucosa, No Blood Throat/Mouth: Normal Voice, No Airway Compromise Head: Atraumatic, Normocephalic Neck: Normal Inspection, Supple, Non-Tender, Full Range of Motion Respiratory/Chest: No Respiratory Distress, No Accessory Muscle Use, Chest Non- Tender, Decreased Breath Sounds, Wheezing. No: Rales, Rhonchi Cardiovascular: Regular Rate, Rhythm GI/Abdominal: Normal Bowel Sounds, Soft, Non-Tender, Other (benign obese abdomen ) Back Exam: Normal Inspection Extremities: Normal Inspection, Non-Tender, No Pedal Edema. No: Suly's Sign Neurological: Alert, Oriented, No Motor/Sensory Deficits Psychiatric: Normal Mood Skin Exam: Warm, Dry, Intact Course - Vital Signs Last Recorded V/S: Last Vital Signs Temp 98.3 F 12/07/19 16:40 Pulse 76 12/07/19 17:39 Resp 14 12/07/19 16:40 BP 122/83 12/07/19 16:40 Pulse Ox 89 L 12/07/19 17:39 - Orders/Labs/Meds Orders: Active Orders 24 hr Category Date Time Status Peripheral IV Care [RC] . DIRECTED Care 12/07/19 17:35 Active RT Aerosol Therapy [RC] ASDIRECTED Care 12/07/19 17:39 Active POTASSIUM,K [CHEM] Stat Lab 12/07/19 17:45 Ordered Potassium Chloride [KCl 10 MEQ in Water 100 ML] 10 meq Med 12/07/19 17:37 Active Premix Bag 1 bag IV ONETIME Sodium Chloride 0.9% [Saline Flush] Med 12/07/19 17:35 Active 10 ml FLUSH ASDIRECTED PRN Peripheral IV Insertion Adult [OM.PC] Stat Oth 12/07/19 17:35 Ordered Medication Orders Potassium Chloride 10 meq/ (Premix) 100 mls @ 100 mls/hr IV ONETIME ONE Stop: 12/07/19 18:36 Last Admin: 12/07/19 17:56 Dose: 100 mls/hr Sodium Chloride (Saline Flush) 10 ml FLUSH ASDIRECTED PRN PRN Reason: Keep Vein Open Last Admin: 12/07/19 18:03 Dose: 10 ml Labs: Lab results from 1505 HRS today reviewed by me. WBC 11.9, K+ 2.3 Meds: Medications Generic Name Dose Route Start Last Admin Trade Name Freq PRN Reason Stop Dose Admin Potassium Chloride 10 meq/ 100 mls @ 100 mls/hr 12/07/19 17:37 12/07/19 17:56 Premix IV 12/07/19 18:36 100 mls/hr ONETIME ONE Administration Sodium Chloride 10 ml 12/07/19 17:35 12/07/19 18:03 Saline Flush FLUSH 10 ml ASDIRECTED PRN Administration Keep Vein Open Discontinued Medications Generic Name Dose Route Start Last Admin Trade Name Freq PRN Reason Stop Dose Admin Albuterol/Ipratropium 3 ml 12/07/19 17:39 12/07/19 17:44 Duoneb 3.0-0.5 Mg/3 Ml NEB 12/07/19 17:40 3 ml ONETIME ONE Administration Benzonatate 200 mg 12/07/19 17:39 12/07/19 17:58 Tessalon Perles PO 12/07/19 17:40 200 mg ONETIME ONE Administration Lidocaine HCl 1 ml 12/07/19 17:35 12/07/19 17:58 Xylocaine-Mpf 1% .XX 12/07/19 17:36 1 ml ONETIME ONE Administration Potassium Chloride 60 meq 12/07/19 17:38 12/07/19 18:01 Klor-Con 10 PO 12/07/19 17:39 60 meq ONETIME ONE Administration - Radiology Interpretation Free Text/Narrative:: XR Chest: Subtle patchy lung densities, no focal lobar consolidation per Rad. report. Departure - Departure Time of Disposition: 17:55 (admitted to Dr. Ayers) Disposition: Refer to Observation Condition: Good Clinical Impression: Hypokalemia, COPD with exacerbation, Tobacco dependence due to cigarettes - Discharge Information *PRESCRIPTION DRUG MONITORING PROGRAM REVIEWED*: Not Applicable *COPY OF PRESCRIPTION DRUG MONITORING REPORT IN PATIENT ANA: Not Applicable Forms: ED Department Discharge Sepsis Event Note - Evaluation Sepsis Screening Result: No Definite Risk - Focused Exam Vital Signs: Vital Signs Temp Pulse Resp BP Pulse Ox Pulse Ox 12/07/19 17:39 76 89 L 12/07/19 16:40 98.3 F 88 14 122/83 94 L Date Exam was Performed: 12/07/19 Time Exam was Performed: 18:04 - My Orders Last 24 Hours: My Active Orders 12/07/19 17:35 Peripheral IV Care [RC] . DIRECTED Sodium Chloride 0.9% [Saline Flush] 10 ml FLUSH ASDIRECTED PRN Peripheral IV Insertion Adult [OM.PC] Stat 12/07/19 17:37 Potassium Chloride [KCl 10 MEQ in Water 100 ML] 10 meq Premix Bag 1 bag IV ONETIME 12/07/19 17:39 RT Aerosol Therapy [RC] ASDIRECTED 12/07/19 17:45 POTASSIUM,K [CHEM] Stat - Assessment/Plan Last 24 Hours: My Active Orders 12/07/19 17:35 Peripheral IV Care [RC] . DIRECTED Sodium Chloride 0.9% [Saline Flush] 10 ml FLUSH ASDIRECTED PRN Peripheral IV Insertion Adult [OM.PC] Stat 12/07/19 17:37 Potassium Chloride [KCl 10 MEQ in Water 100 ML] 10 meq Premix Bag 1 bag IV ONETIME 12/07/19 17:39 RT Aerosol Therapy [RC] ASDIRECTED 12/07/19 17:45 POTASSIUM,K [CHEM] Stat
[2019-12-07] MEDS ORDERED: Lidocaine 1% 30 ML SDV ONE (17:35)
[2019-12-07] MEDS ORDERED: Sodium Chloride 0.9% 10 ML Syringe FLUSH PRN ×2 (17:35→18:46)
[2019-12-07] MEDS ORDERED: Potassium Chloride 10 MEQ in Premix Bag 1 BAG IV ONE (17:37)
[2019-12-07] MEDS ORDERED: Potassium Chloride 10 MEQ Tab.ER PO ONE (17:38)
[2019-12-07] MEDS ORDERED: Benzonatate 100 MG Cap PO ONE (17:39)
[2019-12-07] MEDS ORDERED: Albuterol/Ipratropium 3.0-0.5 MG/3 ML Neb Soln NEB ONE (17:39)
[2019-12-07] MEDS ORDERED: Acetaminophen 325 MG Tab PO PRN (18:46)
[2019-12-07] MEDS ORDERED: Ondansetron 4 MG/2 ML SDV IVPUSH PRN (18:46)
[2019-12-07] MEDS ORDERED: Albuterol 0.083% 2.5 MG/3 ML Neb Soln NEB PRN (18:51)
--- NOTE | 2019-12-07 18:58 | PCM.HP ---
H&P History of Present Illness - General Date of Service: 12/07/19 Admit Problem/Dx: Admission Diagnosis/Problem Admission Diagnosis/Problem Hypokalemia Source of Information: Patient - History of Present Illness Initial Comments - Free Text/Narative: Patient presented with complaint of shortness of breath which has been going on for the past one week. Intensity has been about the same and there is associated cough which is nonproductive. Has not had high-grade fever. Did have low-grade fever temperature of about 99. Admits to having intermittent nausea and vomiting especially when she eats. Also has loose stools when she eats. No headache and no bladder physician. Patient recently underwent testing for coronavirus 19 which was negative. She had lab draws today which showed potassium of 2.3 and the patient was referred to the hospital for admission. - Related Data Allergies/Adverse Reactions: Allergies Allergy/AdvReac Type Severity Reaction Status Date / Time codeine AdvReac Nausea and Verified 12/07/19 16:39 Vomiting Home Medications: Home Meds Esomeprazole Magnesium [Nexium 24Hr] 20 mg PO DAILY 07/20/18 [History] Fluticasone/Vilanterol [Breo Ellipta 100-25 MCG Inhalation Kit] 1 puff PO DAILY 06/18/19 [History] Metoprolol Tartrate 25 mg PO DAILY 06/18/19 [History] amLODIPine Besylate [Amlodipine Besylate] 5 mg PO DAILY 06/18/19 [History] hydroCHLOROthiazide [Hydrochlorothiazide] 25 mg PO DAILY 06/18/19 [History] Past Medical History HEENT History: Reports: Cataract, Impaired Vision, Sinusitis Cardiovascular History: Reports: Hypertension Respiratory History: Reports: Bronchitis, Recurrent Gastrointestinal History: Reports: GERD, Other (See Below) Other Gastrointestinal History: diverticulitis Genitourinary History: Reports: None 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 heel spurs left Neurological History: Reports: Migraines Psychiatric History: Reports: None Endocrine/Metabolic History: Reports: Obesity/BMI 30+ Hematologic History: Reports: None Immunologic History: Reports: None Oncologic (Cancer) History: Reports: None Dermatologic History: Reports: None - Infectious Disease History Infectious Disease History: Reports: None - Past Surgical History Head Surgeries/Procedures: Reports: None HEENT Surgical History: Reports: Adenoidectomy, Cataract Surgery, Eye Surgery, Tonsillectomy Other HEENT Surgeries/Procedures: bilateal cataract surgery Cardiovascular Surgical History: Reports: None Respiratory Surgical History: Reports: None GI Surgical History: Reports: Cholecystectomy, Colonoscopy, EGD, Other (See Below) Other GI Surgeries/Procedures: sigmoidectomy oct 2018 Female Surgical History: Reports: Tubal Ligation Endocrine Surgical History: Reports: None Neurological Surgical History: Reports: None Musculoskeletal Surgical History: Reports: None Dermatological Surgical History: Reports: None Social & Family History - Family History Family Medical History: Noncontributory - Tobacco Use Smoking Status *Q: Current Every Day Smoker Years of Tobacco use: 40 Packs/Tins Daily: 0.5 - Caffeine Use Caffeine Use: Reports: Coffee, Soda Caffeine Use Comment: 2 cups coffee. 4L daily - Recreational Drug Use Recreational Drug Use: No - Living Situation & Occupation Living situation: Reports: Alone H&P Review of Systems - Review of Systems: Review Of Systems: See Below General: Reports: Weakness, Fatigue Pulmonary: Reports: Shortness of Breath, Cough Cardiovascular: Reports: No Symptoms Gastrointestinal: Reports: Diarrhea, Nausea Genitourinary: Reports: No Symptoms Skin: Reports: No Symptoms Psychiatric: Reports: No Symptoms Exam - Exam Exam: See Below - Vital Signs Vital Signs: Last Vital Signs Temp 36.8 C 12/07/19 16:40 Pulse 76 12/07/19 17:39 Resp 14 12/07/19 16:40 BP 122/83 12/07/19 16:40 Pulse Ox 89 L 12/07/19 17:39 Weight: 106.05 kg - Exam General: Alert, Oriented, Cooperative Neck: Supple, Trachea Midline, 2 Lungs: Decreased Breath Sounds Cardiovascular: Regular Rate, Regular Rhythm GI/Abdominal Exam: Normal Bowel Sounds, Soft, Non-Tender, No Organomegaly, No Distention, No Abnormal Bruit, No Mass, Pelvis Stable Extremities: Normal Inspection - Patient Data Lab Results Last 24 hrs: Laboratory Results - last 24 hr 12/07/19 Range/Units 18:00 Potassium 2.3 L* (3.5-5.1) mmol/L Result Diagrams: 12/07/19 18:00 Problem List Initiated/Reviewed/Updated: Yes Orders Last 24hrs: Active Orders 24 hr Category Date Time Status Admission Diagnosis [ADT] Routine ADT 12/07/19 18:29 Ordered Admission Status [Patient Status] [ADT] Routine ADT 12/07/19 18:29 Active Patient Status [ADT] Routine ADT 12/07/19 18:46 Ordered Oxygen Therapy [RC] PRN Care 12/07/19 18:46 Ordered Peripheral IV Care [RC] . DIRECTED Care 12/07/19 17:35 Active RT Aerosol Therapy [RC] ASDIRECTED Care 12/07/19 17:39 Active RT Aerosol Therapy [RC] ASDIRECTED Care 12/07/19 18:51 Ordered Up ad Michelle [RC] ASDIRECTED Care 12/07/19 18:46 Ordered VTE/DVT Education [RC] PER UNIT ROUTINE Care 12/07/19 18:46 Ordered Vital Signs [RC] Q4H Care 12/07/19 18:46 Ordered Regular Diet [DIET] Diet 12/07/19 Dinner Ordered BASIC METABOLIC PANEL,BMP [CHEM] AM Lab 12/08/19 05:11 Ordered POTASSIUM,K [CHEM] Q4H Lab 12/07/19 22:46 Ordered POTASSIUM,K [CHEM] Q4H Lab 12/08/19 02:46 Ordered POTASSIUM,K [CHEM] Q4H Lab 12/08/19 06:46 Ordered Acetaminophen [Tylenol] Med 12/07/19 18:46 Ordered 650 mg PO Q4H PRN Albuterol [Proventil Neb Soln] Med 12/07/19 18:51 Ordered 2.5 mg NEB Q4HRRT PRN Doxycycline [Vibramycin] Med 12/07/19 21:00 Ordered 100 mg PO BID Enoxaparin [Lovenox] Med 12/08/19 09:00 Ordered 30 mg SUBCUT DAILY Esomeprazole Magnesium [Nexium 24Hr] Med 12/08/19 09:00 Ordered 20 mg PO DAILY Fluticasone/Vilanterol Med 12/08/19 09:00 Ordered 1 puff PO DAILY Metoprolol Tartrate [Lopressor] Med 12/08/19 09:00 Ordered 25 mg PO DAILY Ondansetron [Zofran] Med 12/07/19 18:46 Ordered 4 mg IVPUSH Q6H PRN Potassium Chloride [Klor-Con 10] Med 12/08/19 08:00 Ordered 40 meq PO BIDMEALS Sodium Chloride 0.9% [Saline Flush] Med 12/07/19 17:35 Active 10 ml FLUSH ASDIRECTED PRN Sodium Chloride 0.9% [Saline Flush] Med 12/07/19 18:46 Ordered 10 ml FLUSH ASDIRECTED PRN amLODIPine [Norvasc] Med 12/08/19 09:00 Ordered 5 mg PO DAILY Peripheral IV Insertion Adult [OM.PC] Stat Oth 12/07/19 17:35 Ordered Saline Lock Insert [OM.PC] Routine Oth 12/07/19 18:46 Ordered Resuscitation Status Routine Resus Stat 12/07/19 18:46 Ordered Medication Orders Acetaminophen (Tylenol) 650 mg PO Q4H PRN PRN Reason: Pain (Mild 1-3)/fever Albuterol (Proventil Neb Soln) 2.5 mg NEB Q4HRRT PRN PRN Reason: shortness of breath Amlodipine Besylate (Norvasc) 5 mg PO DAILY [facility] Doxycycline Hyclate (Vibramycin) 100 mg PO BID FELICITA Enoxaparin Sodium (Lovenox) 30 mg SUBCUT DAILY FELIC[facility] Metoprolol Tartrate (Lopressor) 25 mg PO DAILY [facility] Non-Formulary Medication (Esomeprazole Magnesium [Nexium 24hr]) 20 mg PO DAILY FELIC[facility] Non-Formulary Medication (Fluticasone/Vilanterol) 1 puff PO DAILY FELIC[facility] Ondansetron HCl (Zofran) 4 mg IVPUSH Q6H PRN PRN Reason: Nausea/Vomiting Potassium Chloride (Klor-Con 10) 40 meq PO BIDMEALS [facility] Sodium Chloride (Saline Flush) 10 ml FLUSH ASDIRECTED PRN PRN Reason: Keep Vein Open Last Admin: 12/07/19 18:03 Dose: 10 ml Sodium Chloride (Saline Flush) 10 ml FLUSH ASDIRECTED PRN PRN Reason: Keep Vein Open Assessment/Plan Comment:: #. Severe hypokalemia Serum potassium is down to 2.3 This is secondary to multiple factors including hydrochlorothiazide therapy and use of broncho-dilators. Patient also has had nausea vomiting and diarrhea. #. Hypertension Blood pressure is within acceptable limits #. COPD No sign of exacerbation #. Acute bronchitis Has been coughing #. Hypertension Blood pressure is within acceptable limits #. Gastroesophageal reflux disease On proton pump inhibitors Plan: Admit patient to medical floor Replace potassium deficit Obtain serial serum potassium Comments nebulization with DuoNeb Doxycycline for bronchitis and possible early pneumonia
[2019-12-07] MEDS: Doxycycline 100 MG Cap PO SCH (20:50)
[2019-12-08] MEDS ORDERED: Potassium Chloride 20 MEQ in Premix Bag 1 BAG IV ONE ×2 (00:22→09:01)
[2019-12-08] MEDS ORDERED: Potassium Chloride 10 MEQ Tab.ER PO ONE ×2 (00:22→05:00)
[2019-12-08] MEDS ORDERED: Loperamide 2 MG Cap PO ONE (00:37)
[2019-12-08] MEDS ORDERED: Loperamide 2 MG Cap PO PRN (00:38)
[2019-12-08] MEDS: Potassium Chloride 10 MEQ in Premix Bag 1 BAG IV SCH ×4 (00:52→04:54)
[2019-12-08] MEDS: Omeprazole 20 MG Cap.CR PO SCH ×2 (04:50→05:16)
[2019-12-08] MEDS ORDERED: Potassium Chloride 10 MEQ Tab.ER PO SCH (08:00)
[2019-12-08 08:38] LABS: CHLORIDE,CL 92 mmol/L (98-107); SODIUM,NA 139 mmol/L (136-145)
[2019-12-08 08:47] LABS: ANION GAP -0.4 mEq/L (7-13)
[2019-12-08] MEDS ORDERED: Magnesium Sulfate/Water 2 GM in Premix Bag 1 BAG IV ONE (09:04)
[2019-12-08] MEDS: Doxycycline 100 MG Cap PO SCH ×2 (09:21→21:14)
[2019-12-08] MEDS: Metoprolol Tartrate 25 MG Tab PO SCH (09:21)
[2019-12-08] MEDS: amLODIPine 5 MG Tab PO SCH (09:21)
[2019-12-08] MEDS: Potassium Chloride 10 MEQ Tab.ER PO SCH ×3 (09:22→21:14)
[2019-12-08] MEDS: Enoxaparin 40 MG/0.4 ML Syringe SUBCUT SCH (09:22)
[2019-12-08] MEDS: Formoterol/Mometasone 100-5 MCG 8.8 GM Inhaler IH SCH ×2 (09:23→21:15)
--- NOTE | 2019-12-08 09:41 | PCM.PN ---
- General Info Date of Service: 12/08/19 - Review of Systems General: Reports: Weakness Pulmonary: Reports: Shortness of Breath Gastrointestinal: Reports: No Symptoms Genitourinary: Reports: No Symptoms - Patient Data Vitals - Most Recent: Last Vital Signs Temp 37.2 C 12/08/19 00:00 Pulse 76 12/08/19 09:21 Resp 16 12/08/19 00:00 BP 131/68 12/08/19 09:21 Pulse Ox 94 L 12/08/19 00:00 Weight - Most Recent: 107.32 kg I&O - Last 24 Hours: Intake & Output 12/07/19 12/08/19 12/08/19 22:59 06:59 14:59 Intake Total 790 400 560 Output Total 100 300 Balance 690 100 560 Lab Results Last 24 Hours: Laboratory Results - last 24 hr 12/07/19 12/07/19 12/08/19 Range/Units 18:00 23:00 04:00 Sodium (136-145) mmol/L Potassium 2.3 L* 2.1 L* 2.5 L (3.5-5.1) mmol/L Chloride (98-107) mmol/L Carbon Dioxide (21-32) mmol/L Anion Gap (7-13) mEq/L BUN (7-18) mg/dL Creatinine (0.55-1.02) mg/dL Est Cr Clr Drug Dosing mL/min Estimated GFR (MDRD) Glucose (74-99) mg/dL Calcium (8.5-10.1) mg/dL 12/08/19 Range/Units 08:10 Sodium 139 (136-145) mmol/L Potassium 2.6 L (3.5-5.1) mmol/L Chloride 92 L (98-107) mmol/L Carbon Dioxide 50 H* (21-32) mmol/L Anion Gap -0.4 L (7-13) mEq/L BUN 2 L (7-18) mg/dL Creatinine 0.55 (0.55-1.02) mg/dL Est Cr Clr Drug Dosing 90.33 mL/min Estimated GFR (MDRD) > 60 Glucose 92 (74-99) mg/dL Calcium 8.0 L (8.5-10.1) mg/dL Med Orders - Current: Current Medications Acetaminophen (Tylenol) 650 mg PO Q4H PRN PRN Reason: Pain (Mild 1-3)/fever Albuterol (Proventil Neb Soln) 2.5 mg NEB Q4HRRT PRN PRN Reason: shortness of breath Amlodipine Besylate (Norvasc) 5 mg PO DAILY [facility] Last Admin: 12/08/19 09:21 Dose: 5 mg Doxycycline Hyclate (Vibramycin) 100 mg PO BID [facility] Last Admin: 12/08/19 09:21 Dose: 100 mg Enoxaparin Sodium (Lovenox) 40 mg SUBCUT DAILY [facility] Last Admin: 12/08/19 09:22 Dose: 40 mg Potassium Chloride 20 meq/ (Premix) 100 mls @ 50 mls/hr IV ONETIME ONE Stop: 12/08/19 11:00 Magnesium Sulfate 2 gm/ Premix 50 mls @ 25 mls/hr IV ONETIME ONE Stop: 12/08/19 11:03 Loperamide HCl (Imodium) 2 mg PO ASDIRECTED PRN PRN Reason: Diarrhea Metoprolol Tartrate (Lopressor) 25 mg PO DAILY [facility] Last Admin: 12/08/19 09:21 Dose: 25 mg Mometasone Furoate/Formoterol Fumar (Dulera 100-5 Mcg) 2 puff IH BID [facility] Last Admin: 12/08/19 09:23 Dose: 2 puff Omeprazole (Omeprazole) 20 mg PO ACBREAKFAST [facility] Last Admin: 12/08/19 05:16 Dose: Not Given Ondansetron HCl (Zofran) 4 mg IVPUSH Q6H PRN PRN Reason: Nausea/Vomiting Potassium Chloride (Klor-Con 10) 40 meq PO Q6H [facility] Stop: 12/09/19 15:16 Last Admin: 12/08/19 09:22 Dose: 40 meq Sodium Chloride (Saline Flush) 10 ml FLUSH ASDIRECTED PRN PRN Reason: Keep Vein Open Discontinued Medications Albuterol/Ipratropium (Duoneb 3.0-0.5 Mg/3 Ml) 3 ml NEB ONETIME ONE Stop: 12/07/19 17:40 Last Admin: 12/07/19 17:44 Dose: 3 ml Benzonatate (Tessalon Perles) 200 mg PO ONETIME ONE Stop: 12/07/19 17:40 Last Admin: 12/07/19 17:58 Dose: 200 mg Potassium Chloride 10 meq/ (Premix) 100 mls @ 100 mls/hr IV ONETIME ONE Stop: 12/07/19 18:36 Last Admin: 12/07/19 17:56 Dose: 100 mls/hr Potassium Chloride 10 meq/ (Premix) 100 mls @ 100 mls/hr IV Q1H [facility] Stop: 12/08/19 04:59 Last Admin: 12/08/19 04:54 Dose: 75 mls/hr Lidocaine HCl (Xylocaine-Mpf 1%) 1 ml .XX ONETIME ONE Stop: 12/07/19 17:36 Last Admin: 12/07/19 17:58 Dose: 1 ml Loperamide HCl (Imodium) 4 mg PO ONETIME ONE Stop: 12/08/19 00:38 Last Admin: 12/08/19 00:51 Dose: 4 mg Potassium Chloride (Klor-Con 10) 60 meq PO ONETIME ONE Stop: 12/07/19 17:39 Last Admin: 12/07/19 18:01 Dose: 60 meq Potassium Chloride (Klor-Con 10) 40 meq PO BIDMEALS [facility] Potassium Chloride (Klor-Con 10) 40 meq PO ONETIME ONE Stop: 12/08/19 00:23 Last Admin: 12/08/19 00:48 Dose: 40 meq Potassium Chloride (Klor-Con 10) 40 meq PO ONETIME ONE Stop: 12/08/19 05:01 Last Admin: 12/08/19 04:48 Dose: 40 meq Sodium Chloride (Saline Flush) 10 ml FLUSH ASDIRECTED PRN PRN Reason: Keep Vein Open Last Admin: 12/07/19 18:03 Dose: 10 ml - Exam Quality Assessment: Supplemental Oxygen General: Alert, Oriented Lungs: Decreased Breath Sounds Cardiovascular: Regular Rate, Regular Rhythm GI/Abdominal Exam: Normal Bowel Sounds, Soft, Non-Tender, No Organomegaly, No Distention, No Abnormal Bruit, No Mass, Pelvis Stable Sepsis Event Note - Evaluation Sepsis Screening Result: No Definite Risk - Focused Exam Vital Signs: Vital Signs Temp Pulse Pulse Resp BP BP Pulse Ox 12/08/19 09:21 76 131/68 12/08/19 00:00 37.2 C 75 16 115/62 94 L Date Exam was Performed: 12/08/19 Time Exam was Performed: 09:40 - Problem List Review Problem List Initiated/Reviewed/Updated: Yes - My Orders Last 24 Hours: My Active Orders 12/07/19 18:46 Patient Status [ADT] Routine Oxygen Therapy [RC] PRN Up ad Michelle [RC] ASDIRECTED VTE/DVT Education [RC] PER UNIT ROUTINE Vital Signs [RC] 20,00,04,08,12,1600 Acetaminophen [Tylenol] 650 mg PO Q4H PRN Ondansetron [Zofran] 4 mg IVPUSH Q6H PRN Sodium Chloride 0.9% [Saline Flush] 10 ml FLUSH ASDIRECTED PRN Saline Lock Insert [OM.PC] Routine Resuscitation Status Routine 12/07/19 18:51 RT Aerosol Therapy [RC] ASDIRECTED Albuterol [Proventil Neb Soln] 2.5 mg NEB Q4HRRT PRN 12/07/19 21:00 Doxycycline [Vibramycin] 100 mg PO BID 12/07/19 Dinner Regular Diet [DIET] 12/08/19 00:38 Loperamide [Imodium] 2 mg PO ASDIRECTED PRN 12/08/19 00:39 Telemetry Monitoring [Cardiac Monitoring] [RC] . DIRECTED 12/08/19 06:00 Omeprazole 20 mg PO ACBREAKFAST 12/08/19 09:00 Enoxaparin [Lovenox] 40 mg SUBCUT DAILY Metoprolol Tartrate [Lopressor] 25 mg PO DAILY Mometasone/Formoterol [Dulera 100-5 MCG] 2 puff IH BID amLODIPine [Norvasc] 5 mg PO DAILY 12/08/19 09:01 Potassium Chloride [KCL 20 MEQ in Water 100 ML] 20 meq Premix Bag 1 bag IV ONETIME 12/08/19 09:04 Magnesium Sulfate/Water [Magnesium Sulfate in Water Premix] 2 gm Premix Bag 1 bag IV ONETIME 12/08/19 09:15 Potassium Chloride [Klor-Con 10] 40 meq PO Q6H - Plan Plan:: #. Severe hypokalemia Serum potassium is dangerously low This is secondary to multiple factors including hydrochlorothiazide therapy and use of broncho-dilators. Patient also has had nausea vomiting and diarrhea. #. Hypertension Blood pressure is within acceptable limits #. COPD No sign of exacerbation #. Acute bronchitis Has been coughing #. Hypertension Blood pressure is within acceptable limits #. Gastroesophageal reflux disease On proton pump inhibitors Give 40 mEq of potassium chloride now. Start 40 mEq every 6 hours Serum potassium every 4 hours until corrected Hold hydrochlorothiazide
[2019-12-09] MEDS ORDERED: Potassium Chloride 10 MEQ Tab.ER PO ONE ×2 (05:00→11:15)
[2019-12-09] MEDS: Potassium Chloride 10 MEQ Tab.ER PO SCH ×3 (05:18→15:37)
[2019-12-09] MEDS: Omeprazole 20 MG Cap.CR PO SCH (05:19)
[2019-12-09] MEDS: Metoprolol Tartrate 25 MG Tab PO SCH (10:00)
[2019-12-09] MEDS: Enoxaparin 40 MG/0.4 ML Syringe SUBCUT SCH (10:00)
[2019-12-09] MEDS: Doxycycline 100 MG Cap PO SCH ×2 (10:00→20:42)
[2019-12-09] MEDS: amLODIPine 5 MG Tab PO SCH (10:00)
[2019-12-09] MEDS: Formoterol/Mometasone 100-5 MCG 8.8 GM Inhaler IH SCH ×2 (10:01→20:42)
--- NOTE | 2019-12-09 10:12 | PCM.PN ---
- General Info Date of Service: 12/09/19 - Review of Systems General: Reports: Malaise Pulmonary: Reports: Shortness of Breath Cardiovascular: Reports: No Symptoms Gastrointestinal: Reports: No Symptoms Musculoskeletal: Reports: No Symptoms Skin: Reports: No Symptoms - Patient Data Vitals - Most Recent: Last Vital Signs Temp 36.4 C 12/09/19 04:00 Pulse 68 12/09/19 10:00 Resp 20 12/09/19 04:00 BP 116/57 L 12/09/19 10:00 Pulse Ox 98 12/09/19 04:00 Weight - Most Recent: 107.32 kg I&O - Last 24 Hours: Intake & Output 12/08/19 12/09/19 12/09/19 22:59 06:59 14:59 Intake Total 700 350 240 Output Total 900 650 Balance -200 -300 240 Lab Results Last 24 Hours: Laboratory Results - last 24 hr 12/08/19 12/08/19 12/08/19 Range/Units 12:05 16:15 20:10 Potassium 3.3 L 3.1 L 3.3 L (3.5-5.1) mmol/L 12/09/19 12/09/19 Range/Units 00:45 04:45 Potassium 3.1 L 3.1 L (3.5-5.1) mmol/L Med Orders - Current: Current Medications Acetaminophen (Tylenol) 650 mg PO Q4H PRN PRN Reason: Pain (Mild 1-3)/fever Albuterol (Proventil Neb Soln) 2.5 mg NEB Q4HRRT PRN PRN Reason: shortness of breath Amlodipine Besylate (Norvasc) 5 mg PO DAILY [facility] Last Admin: 12/09/19 10:00 Dose: 5 mg Doxycycline Hyclate (Vibramycin) 100 mg PO BID [facility] Last Admin: 12/09/19 10:00 Dose: 100 mg Enoxaparin Sodium (Lovenox) 40 mg SUBCUT DAILY [facility] Last Admin: 12/09/19 10:00 Dose: 40 mg Loperamide HCl (Imodium) 2 mg PO ASDIRECTED PRN PRN Reason: Diarrhea Metoprolol Tartrate (Lopressor) 25 mg PO DAILY [facility] Last Admin: 12/09/19 10:00 Dose: 25 mg Mometasone Furoate/Formoterol Fumar (Dulera 100-5 Mcg) 2 puff IH BID [facility] Last Admin: 12/09/19 10:01 Dose: 2 puff Omeprazole (Omeprazole) 20 mg PO ACBREAKFAST [facility] Last Admin: 12/09/19 05:19 Dose: 20 mg Ondansetron HCl (Zofran) 4 mg IVPUSH Q6H PRN PRN Reason: Nausea/Vomiting Potassium Chloride (Klor-Con 10) 40 meq PO Q6H [facility] Stop: 12/09/19 15:16 Last Admin: 12/09/19 09:59 Dose: 40 meq Potassium Chloride (Klor-Con 10) 40 meq PO ONETIME ONE Stop: 12/09/19 11:16 Sodium Chloride (Saline Flush) 10 ml FLUSH ASDIRECTED PRN PRN Reason: Keep Vein Open Discontinued Medications Albuterol/Ipratropium (Duoneb 3.0-0.5 Mg/3 Ml) 3 ml NEB ONETIME ONE Stop: 12/07/19 17:40 Last Admin: 12/07/19 17:44 Dose: 3 ml Benzonatate (Tessalon Perles) 200 mg PO ONETIME ONE Stop: 12/07/19 17:40 Last Admin: 12/07/19 17:58 Dose: 200 mg Potassium Chloride 10 meq/ (Premix) 100 mls @ 100 mls/hr IV ONETIME ONE Stop: 12/07/19 18:36 Last Admin: 12/07/19 17:56 Dose: 100 mls/hr Potassium Chloride 10 meq/ (Premix) 100 mls @ 100 mls/hr IV Q1H [facility] Stop: 12/08/19 04:59 Last Admin: 12/08/19 04:54 Dose: 75 mls/hr Potassium Chloride 20 meq/ (Premix) 100 mls @ 50 mls/hr IV ONETIME ONE Stop: 12/08/19 11:00 Last Infusion: 12/08/19 11:57 Dose: Infused Magnesium Sulfate 2 gm/ Premix 50 mls @ 25 mls/hr IV ONETIME ONE Stop: 12/08/19 11:03 Last Infusion: 12/08/19 14:29 Dose: Infused Lidocaine HCl (Xylocaine-Mpf 1%) 1 ml .XX ONETIME ONE Stop: 12/07/19 17:36 Last Admin: 12/07/19 17:58 Dose: 1 ml Loperamide HCl (Imodium) 4 mg PO ONETIME ONE Stop: 12/08/19 00:38 Last Admin: 12/08/19 00:51 Dose: 4 mg Potassium Chloride (Klor-Con 10) 60 meq PO ONETIME ONE Stop: 12/07/19 17:39 Last Admin: 12/07/19 18:01 Dose: 60 meq Potassium Chloride (Klor-Con 10) 40 meq PO BIDMEALS [facility] Last Admin: 12/08/19 10:26 Dose: Not Given Potassium Chloride (Klor-Con 10) 40 meq PO ONETIME ONE Stop: 12/08/19 00:23 Last Admin: 12/08/19 00:48 Dose: 40 meq Potassium Chloride (Klor-Con 10) 40 meq PO ONETIME ONE Stop: 12/08/19 05:01 Last Admin: 12/08/19 04:48 Dose: 40 meq Sodium Chloride (Saline Flush) 10 ml FLUSH ASDIRECTED PRN PRN Reason: Keep Vein Open Last Admin: 12/07/19 18:03 Dose: 10 ml - Exam General: Alert, Oriented Neck: Supple Lungs: Decreased Breath Sounds Cardiovascular: Regular Rate, Regular Rhythm GI/Abdominal Exam: Normal Bowel Sounds, Soft, Non-Tender, No Organomegaly, No Distention, No Abnormal Bruit, No Mass, Pelvis Stable Sepsis Event Note - Evaluation Sepsis Screening Result: No Definite Risk - Focused Exam Vital Signs: Vital Signs Temp Pulse Pulse Resp BP BP Pulse Ox 12/09/19 10:00 68 116/57 L 12/09/19 04:00 36.4 C 61 20 132/75 98 Date Exam was Performed: 12/09/19 Time Exam was Performed: 10:09 - Problem List Review Problem List Initiated/Reviewed/Updated: Yes - My Orders Last 24 Hours: My Active Orders 12/08/19 09:15 Potassium Chloride [Klor-Con 10] 40 meq PO Q6H 12/09/19 10:06 Overnight Pulse Oximetry [RC] Click to Edit 12/09/19 11:15 Potassium Chloride [Klor-Con 10] 40 meq PO ONETIME ONE - Plan Plan:: #.Hypoxia Becomes hypoxic at nights Obtain overnight oximetry Sleep study as out patient #. Severe hypokalemia Serum potassium remains low This is secondary to multiple factors including hydrochlorothiazide therapy and use of broncho-dilators. Patient also has had nausea vomiting and diarrhea. Discontinue HCTZ #. Hypertension Blood pressure is within acceptable limits Metoprolol Amlodipine #. COPD No sign of exacerbation #. Acute bronchitis Has been coughing Doxycycline #. Hypertension Blood pressure is within acceptable limits #. Gastroesophageal reflux disease On proton pump inhibitors
[2019-12-10] MEDS: Omeprazole 20 MG Cap.CR PO SCH (05:58)
[2019-12-10 08:03] VITALS: BP 132/72; PULSE 67
[2019-12-10] MEDS: Enoxaparin 40 MG/0.4 ML Syringe SUBCUT SCH (08:36)
[2019-12-10] MEDS: amLODIPine 5 MG Tab PO SCH (08:37)
[2019-12-10] MEDS: Metoprolol Tartrate 25 MG Tab PO SCH (08:37)
[2019-12-10] MEDS: Doxycycline 100 MG Cap PO SCH (08:37)
[2019-12-10] MEDS: Formoterol/Mometasone 100-5 MCG 8.8 GM Inhaler IH SCH (08:38)
--- NOTE | 2019-12-10 09:48 | PCM.DCSUM1 ---
Discharge Summary - Hospital Course Free Text/Narrative:: Patient was admitted because of shortness of breath and cough. She also was found to have very low potassium of 2.3. The hypokalemia was felt to be due to hydrochlorothiazide and that medication has been discontinued. #. Severe hypokalemia This was secondary to multiple factors including hydrochlorothiazide therapy and use of broncho-dilators. Patient also has had nausea vomiting and diarrhea. Discontinued HCTZ #.Hypoxia Becomes hypoxic at nights Sleep study as out patient #. Hypertension Blood pressure is within acceptable limits Metoprolol Amlodipine #. COPD No sign of exacerbation #. Acute bronchitis Doxycycline #. Hypertension Blood pressure is within acceptable limits #. Gastroesophageal reflux disease On proton pump inhibitors - Discharge Data Discharge Date: 12/10/19 Discharge Disposition: Home, Self-Care 01 Condition: Good - Referral to Home Health Primary Care Physician: Daphne Godinez NP - Patient Instructions Diet: Regular Diet as Tolerated Activity: As Tolerated Driving: May Drive Today - Discharge Plan *PRESCRIPTION DRUG MONITORING PROGRAM REVIEWED*: Not Applicable *COPY OF PRESCRIPTION DRUG MONITORING REPORT IN PATIENT ANA: Not Applicable Prescriptions/Med Rec: Doxycycline [Vibramycin] 100 mg PO BID 3 Days #6 cap Potassium Chloride 20 meq PO BID 30 Days #60 tablet.er Home Medications: Home Meds Esomeprazole Magnesium [Nexium 24Hr] 20 mg PO DAILY 07/20/18 [History] Fluticasone/Vilanterol [Breo Ellipta 100-25 MCG Inhalation Kit] 1 puff PO DAILY 06/18/19 [History] Metoprolol Tartrate 25 mg PO DAILY 06/18/19 [History] amLODIPine Besylate [Amlodipine Besylate] 5 mg PO DAILY 06/18/19 [History] Doxycycline [Vibramycin] 100 mg PO BID 3 Days #6 cap 12/10/19 [Rx] Potassium Chloride 20 meq PO BID 30 Days #60 tablet.er 12/10/19 [Rx] Referrals: PCP,Unobtain [Ordering Only Provider] - - Discharge Summary/Plan Comment DC Time >30 min.: No - Review of Systems General: Reports: No Symptoms Pulmonary: Reports: Shortness of Breath, Cough Cardiovascular: Reports: No Symptoms Gastrointestinal: Reports: No Symptoms Musculoskeletal: Reports: No Symptoms - Patient Data Vitals - Most Recent: Last Vital Signs Temp 36.4 C 12/10/19 08:02 Pulse 67 12/10/19 08:37 Resp 20 12/10/19 08:02 BP 132/72 12/10/19 08:37 Pulse Ox 96 12/10/19 09:28 Weight - Most Recent: 107.32 kg I&O - Last 24 hours: Intake & Output 12/09/19 12/10/19 12/10/19 22:59 06:59 14:59 Intake Total 1080 Output Total 700 Balance 380 Med Orders - Current: Current Medications Acetaminophen (Tylenol) 650 mg PO Q4H PRN PRN Reason: Pain (Mild 1-3)/fever Albuterol (Proventil Neb Soln) 2.5 mg NEB Q4HRRT PRN PRN Reason: shortness of breath Amlodipine Besylate (Norvasc) 5 mg PO DAILY [facility] Last Admin: 12/10/19 08:37 Dose: 5 mg Doxycycline Hyclate (Vibramycin) 100 mg PO BID [facility] Last Admin: 12/10/19 08:37 Dose: 100 mg Enoxaparin Sodium (Lovenox) 40 mg SUBCUT DAILY [facility] Last Admin: 12/10/19 08:36 Dose: 40 mg Loperamide HCl (Imodium) 2 mg PO ASDIRECTED PRN PRN Reason: Diarrhea Metoprolol Tartrate (Lopressor) 25 mg PO DAILY [facility] Last Admin: 12/10/19 08:37 Dose: 25 mg Mometasone Furoate/Formoterol Fumar (Dulera 100-5 Mcg) 2 puff IH BID [facility] Last Admin: 12/10/19 08:38 Dose: 2 puff Omeprazole (Omeprazole) 20 mg PO ACBREAKFAST [facility] Last Admin: 12/10/19 05:58 Dose: 20 mg Ondansetron HCl (Zofran) 4 mg IVPUSH Q6H PRN PRN Reason: Nausea/Vomiting Sodium Chloride (Saline Flush) 10 ml FLUSH ASDIRECTED PRN PRN Reason: Keep Vein Open Discontinued Medications Albuterol/Ipratropium (Duoneb 3.0-0.5 Mg/3 Ml) 3 ml NEB ONETIME ONE Stop: 12/07/19 17:40 Last Admin: 12/07/19 17:44 Dose: 3 ml Benzonatate (Tessalon Perles) 200 mg PO ONETIME ONE Stop: 12/07/19 17:40 Last Admin: 12/07/19 17:58 Dose: 200 mg Potassium Chloride 10 meq/ (Premix) 100 mls @ 100 mls/hr IV ONETIME ONE Stop: 12/07/19 18:36 Last Admin: 12/07/19 17:56 Dose: 100 mls/hr Potassium Chloride 10 meq/ (Premix) 100 mls @ 100 mls/hr IV Q1H [facility] Stop: 12/08/19 04:59 Last Admin: 12/08/19 04:54 Dose: 75 mls/hr Potassium Chloride 20 meq/ (Premix) 100 mls @ 50 mls/hr IV ONETIME ONE Stop: 12/08/19 11:00 Last Infusion: 12/08/19 11:57 Dose: Infused Magnesium Sulfate 2 gm/ Premix 50 mls @ 25 mls/hr IV ONETIME ONE Stop: 12/08/19 11:03 Last Infusion: 12/08/19 14:29 Dose: Infused Lidocaine HCl (Xylocaine-Mpf 1%) 1 ml .XX ONETIME ONE Stop: 12/07/19 17:36 Last Admin: 12/07/19 17:58 Dose: 1 ml Loperamide HCl (Imodium) 4 mg PO ONETIME ONE Stop: 12/08/19 00:38 Last Admin: 12/08/19 00:51 Dose: 4 mg Potassium Chloride (Klor-Con 10) 60 meq PO ONETIME ONE Stop: 12/07/19 17:39 Last Admin: 12/07/19 18:01 Dose: 60 meq Potassium Chloride (Klor-Con 10) 40 meq PO BIDMEALS [facility] Last Admin: 12/08/19 10:26 Dose: Not Given Potassium Chloride (Klor-Con 10) 40 meq PO ONETIME ONE Stop: 12/08/19 00:23 Last Admin: 12/08/19 00:48 Dose: 40 meq Potassium Chloride (Klor-Con 10) 40 meq PO ONETIME ONE Stop: 12/08/19 05:01 Last Admin: 12/08/19 04:48 Dose: 40 meq Potassium Chloride (Klor-Con 10) 40 meq PO Q6H [facility] Stop: 12/09/19 15:16 Last Admin: 12/09/19 15:37 Dose: 40 meq Potassium Chloride (Klor-Con 10) 40 meq PO ONETIME ONE Stop: 12/09/19 11:16 Last Admin: 12/09/19 12:27 Dose: 40 meq Sodium Chloride (Saline Flush) 10 ml FLUSH ASDIRECTED PRN PRN Reason: Keep Vein Open Last Admin: 12/07/19 18:03 Dose: 10 ml - Exam General: Reports: Alert, Oriented Lungs: Reports: Clear to Auscultation, Decreased Breath Sounds Cardiovascular: Reports: Regular Rate, Regular Rhythm GI/Abdominal Exam: Normal Bowel Sounds, Soft, Non-Tender, No Organomegaly, No Distention, No Abnormal Bruit, No Mass, Pelvis Stable Rectal (Female) Exam: Normal Rectal Tone Extremities: Normal Inspection, Normal Range of Motion, Non-Tender, No Pedal Edema, Normal Capillary Refill Skin: Reports: Warm, Dry, Intact
[2019-12-10 10:20] LABS: ANION GAP 9.2 mEq/L (7-13); CHLORIDE,CL 99 mmol/L (98-107); SODIUM,NA 137 mmol/L (136-145)
== END 2019-12-10 10:54 | disposition home or self-care (01) ==
LOC: DL.ED 16:13 → DL.MS 18:02 → UNDOADMOB 18:02 → DL.MS 18:29
PROVIDERS: ADMIT Hospitalist; ATTEND Hospitalist
DX: J44.0 Chronic obstructive pulmonary disease with (acute) lower respiratory infection (principal); E87.6 Hypokalemia; T50.2X5A Adverse effect of carbonic-anhydrase inhibitors, benzothiadiazides and other diuretics, initial encounter; T48.6X5A Adverse effect of antiasthmatics, initial encounter; R09.02 Hypoxemia; J20.9 Acute bronchitis, unspecified; I10 Essential (primary) hypertension; R11.2 Nausea with vomiting, unspecified; R19.7 Diarrhea, unspecified; E66.9 Obesity, unspecified; F17.210 Nicotine dependence, cigarettes, uncomplicated; K21.9 Gastro-esophageal reflux disease without esophagitis; Z79.51 Long term (current) use of inhaled steroids; Z88.6 Allergy status to analgesic agent; Z68.41 Body mass index [BMI] 40.0-44.9, adult; Z79.899 Other long term (current) drug therapy
CPT/HCPCS: 36415; 80048; 84132; 96365; 96366; 96367; 96372; 99285-25; A9270-GY; G0378; J1650; J2001; J3475; J3480; J7620-GY

== ENCOUNTER 2020-02-18 14:57 | Emergency (ER) | payer MEDICAID, OTHER ==
--- NOTE | 2020-02-18 15:29 | EDM.PDOC ---
ED HPI GENERAL MEDICAL PROBLEM - General Chief Complaint: Abdominal Pain Stated Complaint: HARD TIME PEEING/POTASSIUM IS LOW Time Seen by Provider: 02/18/20 15:29 Source of Information: Reports: Patient, RN, RN Notes Reviewed History Limitations: Reports: No Limitations - History of Present Illness INITIAL COMMENTS - FREE TEXT/NARRATIVE: Patient presents to ER with complaint of difficulty with urination. Patient states she has been having difficulty with urination and burning for the past 3 days, with very little output. Patient states there is blood when she wipes after she urinates. Patient also states that she does have some bright red blood from the rectum. Patient states she attributes this to hemorrhoids as she has had loose stools frequently recently which is normal for her she does have mucousy diarrhea stools from time to time as she has a history of diverticulosis, with diverticulitis at times and has had surgery for this. Patient states she knows that her potassium level will be low. She states that is been over 3 weeks since she had her lab tested last and it was 3 at that point. Patient states they give her tablets for potassium, and they upset her stomach and she is unable to take them. Patient admits to chills, denies fever. Admits to nausea and vomiting from time to time for the past 3 days,as well as the diarrhea. Patient denies chest pains or shortness of breath. Complains of pain to the left flank, and left lower quadrant area. Onset: Gradual Left Lower Abdomen Pain Score (Numeric/FACES): 2 - Related Data Allergies Allergy/AdvReac Type Severity Reaction Status Date / Time codeine AdvReac Nausea and Verified 02/18/20 15:21 Vomiting Home Meds: Home Meds Esomeprazole Magnesium [Nexium 24Hr] 20 mg PO DAILY 07/20/18 [History] Fluticasone/Vilanterol [Breo Ellipta 100-25 MCG Inhalation Kit] 1 puff PO DAILY 06/18/19 [History] Metoprolol Tartrate 25 mg PO DAILY 06/18/19 [History] amLODIPine Besylate [Amlodipine Besylate] 5 mg PO DAILY 06/18/19 [History] Potassium Chloride 20 meq PO BID 30 Days #60 tablet.er 12/10/19 [Rx] Past Medical History HEENT History: Reports: Cataract, Impaired Vision, Sinusitis Cardiovascular History: Reports: Hypertension Respiratory History: Reports: Bronchitis, Recurrent Gastrointestinal History: Reports: GERD, Other (See Below) Other Gastrointestinal History: diverticulitis Genitourinary History: Reports: None 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 heel spurs left Neurological History: Reports: Migraines Psychiatric History: Reports: None Endocrine/Metabolic History: Reports: Obesity/BMI 30+ Hematologic History: Reports: None Immunologic History: Reports: None Oncologic (Cancer) History: Reports: None Dermatologic History: Reports: None - Infectious Disease History Infectious Disease History: Reports: None - Past Surgical History Head Surgeries/Procedures: Reports: None HEENT Surgical History: Reports: Adenoidectomy, Cataract Surgery, Eye Surgery, Tonsillectomy Other HEENT Surgeries/Procedures: bilateal cataract surgery Cardiovascular Surgical History: Reports: None Respiratory Surgical History: Reports: None GI Surgical History: Reports: Cholecystectomy, Colonoscopy, EGD, Other (See Below) Other GI Surgeries/Procedures: sigmoidectomy oct 2018 Female Surgical History: Reports: Tubal Ligation Endocrine Surgical History: Reports: None Neurological Surgical History: Reports: None Musculoskeletal Surgical History: Reports: None Dermatological Surgical History: Reports: None Social & Family History - Family History Family Medical History: Noncontributory - Caffeine Use Caffeine Use: Reports: Coffee, Soda Caffeine Use Comment: 2 cups coffee. 4L daily - Living Situation & Occupation Living situation: Reports: Alone ED ROS GENERAL - Review of Systems Review Of Systems: Comprehensive ROS is negative, except as noted in HPI. ED EXAM, RENAL/ - Physical Exam Exam: See Below Exam Limited By: No Limitations General Appearance: Alert, WD/WN, No Apparent Distress, Obese Eye Exam: Bilateral Eye: EOMI, Normal Inspection Ears: Normal External Exam, Hearing Grossly Normal Nose: Normal Inspection Throat/Mouth: Normal Inspection, Normal Voice, No Airway Compromise Head: Atraumatic, Normocephalic Neck: Normal Inspection, Supple, Non-Tender, Full Range of Motion Respiratory/Chest: No Respiratory Distress, No Accessory Muscle Use, Chest Non- Tender, Decreased Breath Sounds Cardiovascular: Normal Peripheral Pulses, Regular Rate, Rhythm, No Edema, No Gallop, No JVD, No Murmur, No Rub GI/Abdominal: Normal Bowel Sounds, Soft, Tender (LUQ, LLQ, RLQ) (Female) Exam: Deferred Rectal (Female) Exam: Deferred Back Exam: Normal Inspection, Full Range of Motion, CVA Tenderness (L) Extremities: Normal Inspection, Normal Range of Motion, Non-Tender, Normal Capillary Refill, No Pedal Edema Neurological: Alert, Oriented, CN II-XII Intact, Normal Cognition, Normal Gait, Normal Reflexes, No Motor/Sensory Deficits Psychiatric: Normal Affect, Normal Mood Skin Exam: Warm, Dry, Intact, Normal Color, No Rash Lymphatic: No Adenopathy Course - Vital Signs Last Recorded V/S: Last Vital Signs Temp 97.8 F 02/18/20 17:14 Pulse 88 02/18/20 17:14 Resp 14 02/18/20 17:14 BP 137/83 02/18/20 17:14 Pulse Ox 94 L 02/18/20 17:14 - Orders/Labs/Meds Orders: Active Orders 24 hr Category Date Time Status CULTURE URINE [RM] Stat Lab 02/18/20 15:31 Received Labs: Laboratory Tests 02/18/20 02/18/20 02/18/20 Range/Units 15:29 15:29 15:31 WBC 14.3 H (5.0-10.0) 10^3/uL RBC 3.76 L (4.2-5.4) 10^6/uL Hgb 12.4 (12.0-16.0) g/dL Hct 36.7 L (37.0-47.0) % MCV 97.6 D (80-100) fL MCH 33.0 (27.0-34.0) pg MCHC 33.8 (33.0-35.0) g/dL Plt Count 419 (150-450) 10^3/uL Neut % (Auto) 80.5 H (42.2-75.2) % Lymph % (Auto) 13.8 L (20.5-50.1) % [place] % (Auto) 5.1 (2-8) % Eos % (Auto) 0.3 L (1.0-3.0) % Baso % (Auto) 0.3 (0.0-1.0) % Sodium 139 (136-145) mmol/L Potassium 3.1 L (3.5-5.1) mmol/L Chloride 97 L (98-107) mmol/L Carbon Dioxide 34 H (21-32) mmol/L Anion Gap 11.1 (7-13) mEq/L BUN 3 L (7-18) mg/dL Creatinine 0.86 (0.55-1.02) mg/dL Est Cr Clr Drug Dosing 57.77 mL/min Estimated GFR (MDRD) > 60 BUN/Creatinine Ratio 3.5 (No establ ref range) Glucose 114 H (74-99) mg/dL Calcium 8.9 (8.5-10.1) mg/dL Total Bilirubin 1.1 H (0.2-1.0) mg/dL AST 86 H (15-37) U/L ALT 38 (14-59) U/L Alkaline Phosphatase 270 H (46-116) U/L Total Protein 6.9 (6.4-8.2) g/dL Albumin 3.1 L (3.4-5.0) g/dL Globulin 3.8 Albumin/Globulin Ratio 0.82 Urine Color [place] (YELLOW) Urine Appearance Slightly cloudy (CLEAR) Urine pH 6.0 (5.0-9.0) Ur Specific [place] >= 1.030 (1.005-1.030) Urine Protein >=300 H (NEGATIVE) Urine Glucose (UA) Negative (NEGATIVE) Urine Ketones 15 H (NEGATIVE) Urine Occult Blood Large H (NEGATIVE) Urine Nitrite Positive H (NEGATIVE) Urine Bilirubin Moderate H (NEGATIVE) Urine Urobilinogen 2.0 H (0.2-1.0) mg/dL Ur Leukocyte Esterase Small H (NEGATIVE) Urine RBC Semi-packed H /HPF Urine WBC 10-20 H (0-5/HPF) /HPF Ur Epithelial Cells Few (NOT SEEN) /HPF Urine Bacteria Few (0-FEW/HPF) /HPF Urine Mucus Few H (NOT SEEN) /LPF Urinalysis Comment See note Meds: Medications Discontinued Medications Generic Name Dose Route Start Last Admin Trade Name Freq PRN Reason Stop Dose Admin Ceftriaxone Sodium 1 gm/ 50 mls @ 100 mls/hr 02/18/20 16:09 02/18/20 16:56 Sodium Chloride IV 02/18/20 16:38 100 mls/hr ONETIME ONE Administration Potassium Chloride 10 meq/ 100 mls @ 100 mls/hr 02/18/20 16:10 02/18/20 17:25 Premix IV 02/18/20 17:09 100 mls/hr ONETIME ONE Administration Sodium Chloride 1,000 mls @ 999 mls/hr 02/18/20 16:09 02/18/20 16:55 Normal Saline IV 02/18/20 17:09 999 mls/hr .BOLUS ONE Administration Ondansetron HCl 4 mg 02/18/20 16:09 02/18/20 16:57 Zofran IV 02/18/20 16:10 4 mg ONETIME ONE Administration - Radiology Interpretation Free Text/Narrative:: CT Abdomen/Pelvis wo contrast: 1. Huge fatty liver. No intrahepatic mass lesion or abnormal dilatation of the biliary ducts. Normal spleen. 2. Large hiatus hernia incarcerated in the lower middle mediastinum. Lung bases clear. 3. Normal reniform size, axis and configuration, bilaterally. No sign of urolithiasis or obstructive uropathy. Note, small volume urinary bladder with thickened wall suggesting cystitis. Pelvic phleboliths. Clinical? 4. Cholecystectomy, clips RUQ. Large pannus. Calcifications normal caliber aortoiliac vessels. 5. Midline uterus. No pelvic or abdominal mass lesion. No mesenteric or retroperitoneal lymphadenopathy. No inflammatory, dirty, peritoneal fat, signs of mechanical bowel obstruction, ascites or free air. Conclusion: No sign of nephrolithiasis or obstructive uropathy. Possible cystitis. Huge fatty liver. Hiatus hernia. See rad report Departure - Departure Time of Disposition: 18:34 Disposition: Home, Self-Care 01 Condition: Fair Clinical Impression: Hypokalemia UTI (urinary tract infection) Qualifiers: Urinary tract infection type: acute cystitis Hematuria presence: with hematuria Qualified Code(s): N30.01 - Acute cystitis with hematuria - Discharge Information *PRESCRIPTION DRUG MONITORING PROGRAM REVIEWED*: No *COPY OF PRESCRIPTION DRUG MONITORING REPORT IN PATIENT ANA: No Instructions: Antibiotic Medicine, Adult, [id number], Hypokalemia, Urinary Tract Infection, Adult, [id number], Abdominal Pain, Adult, [id number], Potassium Content of Foods Forms: ED Department Discharge Additional Instructions: RX: Cephalexin, Potassium powder Drink plenty of water Follow up with your primary care facility next week for recheck of urine Sepsis Event Note (ED) - Focused Exam Vital Signs: Vital Signs Temp Pulse Resp BP Pulse Ox 02/18/20 17:14 97.8 F 88 14 137/83 94 L 02/18/20 15:00 97.4 F 107 H 16 148/92 H 98 - My Orders Last 24 Hours: My Active Orders 02/18/20 15:31 CULTURE URINE [RM] Stat - Assessment/Plan Last 24 Hours: My Active Orders 02/18/20 15:31 CULTURE URINE [] Stat
[2020-02-18 15:57] LABS: ANION GAP 11.1 mEq/L (7-13); CHLORIDE,CL 97 mmol/L (98-107); SODIUM,NA 139 mmol/L (136-145)
[2020-02-18] MEDS ORDERED: Ondansetron 4 MG/2 ML SDV IV ONE (16:09)
[2020-02-18] MEDS ORDERED: cefTRIAXone 1 GM in Sodium Chloride 0.9% 50 ML IV ONE (16:09)
[2020-02-18] MEDS ORDERED: Sodium Chloride 0.9% 1,000 ML IV ONE (16:09)
[2020-02-18] MEDS ORDERED: Potassium Chloride 10 MEQ in Premix Bag 1 BAG IV ONE (16:10)
--- NOTE | 2020-02-18 17:10 | CT ---
EXAMINATION: Abdomen Pelvis wo Cont SEX: Female AGE: 54 years CLINICAL HISTORY: Hypertensive 54-year-old hypertensive 220 pound female smoker with left flank pain, large occult blood in the urine, and elevated white blood cell count (WBC 14,300). Normal kidneys" reported on previous CT scan 19 December 2018. Scan technique: Volume acquisition of data emergency unenhanced CT scan of the abdomen and pelvis (kidneys/ureters/bladder) obtained without oral or IV contrast (renal stone study) while lying supine on the Siemens multislice scanner [place], [place]. All data archived in the PAC system for storage, reformatting axial/sagittal/coronal planes and study. Interpretation: 1. Huge fatty liver. No intrahepatic mass lesion or abnormal dilatation of the biliary ducts. Normal spleen. 2. Large hiatus hernia incarcerated in the lower middle mediastinum. Lung bases clear. 3. Normal reniform size, axis and configuration, bilaterally. *No sign of urolithiasis or obstructive uropathy. Note: Small volume urinary bladder with thickened wall suggesting cystitis. Pelvic phleboliths. Clinical? 4. Cholecystectomy (clips RUQ). Large pannus. Calcifications normal caliber aortoiliac vessels. 5. Midline uterus. No pelvic or abdominal mass lesion. No mesenteric or retroperitoneal lymphadenopathy. No inflammatory "dirty" peritoneal fat, signs of mechanical bowel obstruction, ascites or free air. CONCLUSION: No sign of nephrolithiasis or obstructive uropathy. Possible cystitis. Huge fatty liver. Hiatus hernia.
[2020-02-18 17:14] VITALS: BP 137/83; PULSE 88
== END 2020-02-18 18:40 | disposition home or self-care (01) ==
LOC: DL.ED 14:57
DX: E87.6 Hypokalemia (principal); N30.01 Acute cystitis with hematuria; I10 Essential (primary) hypertension; K21.9 Gastro-esophageal reflux disease without esophagitis; E66.9 Obesity, unspecified; Z68.41 Body mass index [BMI] 40.0-44.9, adult; Z90.49 Acquired absence of other specified parts of digestive tract; Z88.5 Allergy status to narcotic agent; Z79.899 Other long term (current) drug therapy
CPT/HCPCS: 36415; 74176; 80053; 81001; 85025; 87086; 96365; 96367; 96375; 99284; J0696; J2405; J3480; J7030; J7050; 87088; 87186

== ENCOUNTER 2020-04-07 12:08 | Inpatient (IN) | payer MEDICAID ==
[2020-04-07] MEDS ORDERED: Sodium Chloride 0.9% 10 ML Syringe FLUSH PRN (12:16)
--- NOTE | 2020-04-07 12:18 | EDM.PDOC ---
ED HPI GENERAL MEDICAL PROBLEM - General Chief Complaint: General Stated Complaint: FEET BURNING/STOMACH "NUMB" Time Seen by Provider: 04/07/20 12:18 Source of Information: Reports: Patient, Old Records, RN, RN Notes Reviewed History Limitations: Reports: No Limitations - History of Present Illness INITIAL COMMENTS - FREE TEXT/NARRATIVE: Pt presents to ER from home by POV with c/o feeling dehydrated, with tingling and burning in the feet, a numb sensation in the epigastric area, and left sided abdominal and left flank pain. Symptoms began about one to one and a half weeks ago and have slowly worsened. She admits to some episodes of nausea, but is not currently nauseated and has not vomited. Denies rectal bleeding, dark, or melanotic stool. Pt reports Hx of similar symptoms in the past with hypokalemia. She has Rx Potassium at home but hasn't been taking it because it upsets her stomach. Denies chest pain, cough, shortness of breath, fever, chills, recent travel, or any known COVID exposures. Onset: Gradual Duration: Week(s): (1+ week), Constant, Getting Worse Location: Reports: Abdomen, Generalized Quality: Reports: Ache Severity: Moderate Improves with: Reports: None Worsens with: Reports: None Associated Symptoms: Reports: No Other Symptoms - Related Data Allergies Allergy/AdvReac Type Severity Reaction Status Date / Time codeine AdvReac Nausea and Verified 04/07/20 12:16 Vomiting Home Meds: Home Meds Esomeprazole Magnesium [Nexium 24Hr] 20 mg PO DAILY 07/20/18 [History] Fluticasone/Vilanterol [Breo Ellipta 100-25 MCG Inhalation Kit] 1 puff PO DAILY 06/18/19 [History] Metoprolol Tartrate 25 mg PO DAILY 06/18/19 [History] amLODIPine Besylate [Amlodipine Besylate] 5 mg PO DAILY 06/18/19 [History] Potassium Chloride 20 meq PO BID 30 Days #60 tablet.er 12/10/19 [Rx] Past Medical History HEENT History: Reports: Cataract, Impaired Vision, Sinusitis Cardiovascular History: Reports: Hypertension Respiratory History: Reports: Bronchitis, Recurrent Gastrointestinal History: Reports: GERD, Other (See Below) Other Gastrointestinal History: diverticulitis Genitourinary History: Reports: None 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 heel spurs left Neurological History: Reports: Migraines Psychiatric History: Reports: None Endocrine/Metabolic History: Reports: Obesity/BMI 30+ Hematologic History: Reports: None Immunologic History: Reports: None Oncologic (Cancer) History: Reports: None Dermatologic History: Reports: None - Infectious Disease History Infectious Disease History: Reports: None - Past Surgical History Head Surgeries/Procedures: Reports: None HEENT Surgical History: Reports: Adenoidectomy, Cataract Surgery, Eye Surgery, Tonsillectomy Other HEENT Surgeries/Procedures: bilateal cataract surgery Cardiovascular Surgical History: Reports: None Respiratory Surgical History: Reports: None GI Surgical History: Reports: Cholecystectomy, Colonoscopy, EGD, Other (See Below) Other GI Surgeries/Procedures: sigmoidectomy oct 2018 Female Surgical History: Reports: Tubal Ligation Endocrine Surgical History: Reports: None Neurological Surgical History: Reports: None Musculoskeletal Surgical History: Reports: None Dermatological Surgical History: Reports: None Social & Family History - Family History Family Medical History: Noncontributory - Tobacco Use Smoking Status *Q: Current Every Day Smoker Tobacco Use Within Last Twelve Months: Cigarettes - Caffeine Use Caffeine Use: Reports: Coffee, Soda Caffeine Use Comment: 2 cups coffee. 4L daily - Living Situation & Occupation Living situation: Reports: Alone Occupation: Employed ED ROS GENERAL - Review of Systems Review Of Systems: Comprehensive ROS is negative, except as noted in HPI. ED EXAM, GENERAL - Physical Exam Exam: See Below Exam Limited By: No Limitations General Appearance: Alert, No Apparent Distress, Obese, Other (Chronically ill appearing) Eye Exam: Bilateral Eye: Normal Inspection Nose: Normal Inspection, Normal Mucosa, No Blood Throat/Mouth: Normal Lips, Normal Voice, No Airway Compromise, Other (Dry oral mucosa) Head: Atraumatic, Normocephalic Neck: Normal Inspection, Supple, Non-Tender, Full Range of Motion Respiratory/Chest: No Respiratory Distress, Lungs Clear, No Accessory Muscle Use, Chest Non-Tender, Decreased Breath Sounds Cardiovascular: Regular Rate, Rhythm, No Edema GI/Abdominal: Normal Bowel Sounds, Soft, No Organomegaly, No Distention, Pelvis Stable, Tender (LUQ, LLQ). No: No Abnormal Bruit, No Mass, Guarding, Rigid, Rebound (Female) Exam: Deferred Rectal (Female) Exam: Deferred Back Exam: CVA Tenderness (L). No: CVA Tenderness (R), Vertebral Tenderness Extremities: Normal Inspection, Normal Range of Motion, Non-Tender, Normal Capillary Refill, No Pedal Edema Neurological: Alert, Oriented, CN II-XII Intact, Normal Cognition, Normal Gait, No Motor/Sensory Deficits Psychiatric: Depressed Mood, Flat Affect Skin Exam: Warm, Intact, No Rash, Diaphoretic. No: Cyanosis, Ecchymosis, Erythema, Jaundice, Petechiae EKG INTERPRETATION EKG Date: 04/07/20 Time: 12:43 Rhythm: Other (SR) Rate (Beats/Min): 98 [place]: Normal P-Wave: Present QRS: Normal (with borderline low voltage) ST-T: Other (non-specific T abnormalities) QT: Normal Comparison: No Change Course - Vital Signs Last Recorded V/S: Last Vital Signs Temp 95.1 F L 04/07/20 12:16 Pulse 97 04/07/20 12:16 Resp 16 04/07/20 12:16 BP 152/97 H 04/07/20 12:16 Pulse Ox 98 04/07/20 12:16 - Orders/Labs/Meds Orders: Active Orders 24 hr Category Date Time Status EKG 12 Lead [EKG Documentation Completion] [RC] STAT Care 04/07/20 12:26 Active Peripheral IV Care [RC] . DIRECTED Care 04/07/20 12:16 Active CULTURE BLOOD [BC] Stat Lab 04/07/20 12:57 Results CULTURE BLOOD [BC] Stat Lab 04/07/20 13:05 Received CULTURE URINE [RM] Stat Lab 04/07/20 13:46 Received Sodium Chloride 0.9% [Saline Flush] Med 04/07/20 12:16 Active 10 ml FLUSH ASDIRECTED PRN Blood Culture x2 Reflex Set [OM.PC] Stat Oth 04/07/20 12:40 Ordered Peripheral IV Insertion Adult [OM.PC] Stat Oth 04/07/20 12:16 Ordered Medication Orders Sodium Chloride (Saline Flush) 10 ml FLUSH ASDIRECTED PRN PRN Reason: Keep Vein Open Last Admin: 04/07/20 12:30 Dose: 10 ml Documented by: DEVON Labs: Laboratory Tests 04/07/20 04/07/20 04/07/20 Range/Units 11:29 12:57 12:57 WBC 15.7 H (5.0-10.0) 10^3/uL RBC 3.20 L (4.2-5.4) 10^6/uL Hgb 12.1 (12.0-16.0) g/dL Hct 36.0 L (37.0-47.0) % MCV 112.5 H D (80-100) fL MCH 37.8 H (27.0-34.0) pg MCHC 33.6 (33.0-35.0) g/dL Plt Count 421 (150-450) 10^3/uL Neut % (Auto) 83.2 H (42.2-75.2) % Lymph % (Auto) 10.9 L (20.5-50.1) % [place] % (Auto) 5.1 (2-8) % Eos % (Auto) 0.7 L (1.0-3.0) % Baso % (Auto) 0.1 (0.0-1.0) % Sodium 135 L (136-145) mmol/L Potassium 3.6 (3.5-5.1) mmol/L Chloride 95 L (98-107) mmol/L Carbon Dioxide 33 H (21-32) mmol/L Anion Gap 10.6 (7-13) mEq/L BUN 4 L (7-18) mg/dL Creatinine 0.88 (0.55-1.02) mg/dL Est Cr Clr Drug Dosing 56.46 mL/min Estimated GFR (MDRD) > 60 BUN/Creatinine Ratio 4.5 (No establ ref range) Glucose 107 H (74-99) mg/dL Lactic Acid 5.5 H* (0.4-2.0) mmol/L Calcium 8.3 L (8.5-10.1) mg/dL Magnesium 1.3 L (1.8-2.4) mg/dL Total Bilirubin 1.3 H (0.2-1.0) mg/dL AST 102 H (15-37) U/L ALT 25 (14-59) U/L Alkaline Phosphatase 355 H (46-116) U/L Troponin I < 0.017 (0.000-0.056) ng/mL Total Protein 7.0 (6.4-8.2) g/dL Albumin 2.7 L (3.4-5.0) g/dL Globulin 4.3 Albumin/Globulin Ratio 0.63 Urine Color (YELLOW) Urine Appearance (CLEAR) Urine pH (5.0-9.0) Ur Specific [place] (1.005-1.030) Urine Protein (NEGATIVE) Urine Glucose (UA) (NEGATIVE) Urine Ketones (NEGATIVE) Urine Occult Blood (NEGATIVE) Urine Nitrite (NEGATIVE) Urine Bilirubin (NEGATIVE) Urine Urobilinogen (0.2-1.0) mg/dL Ur Leukocyte Esterase (NEGATIVE) Urine RBC /HPF Urine WBC (0-5/HPF) /HPF Ur Epithelial Cells (NOT SEEN) /HPF Amorphous Sediment (NOT SEEN) /HPF Urine Bacteria (0-FEW/HPF) /HPF Urine Mucus (NOT SEEN) /LPF Ethyl Alcohol (0) mg/dL 04/07/20 04/07/20 Range/Units 12:57 13:46 WBC (5.0-10.0) 10^3/uL RBC (4.2-5.4) 10^6/uL Hgb (12.0-16.0) g/dL Hct (37.0-47.0) % MCV (80-100) fL MCH (27.0-34.0) pg MCHC (33.0-35.0) g/dL Plt Count (150-450) 10^3/uL Neut % (Auto) (42.2-75.2) % Lymph % (Auto) (20.5-50.1) % [place] % (Auto) (2-8) % Eos % (Auto) (1.0-3.0) % Baso % (Auto) (0.0-1.0) % Sodium (136-145) mmol/L Potassium (3.5-5.1) mmol/L Chloride (98-107) mmol/L Carbon Dioxide (21-32) mmol/L Anion Gap (7-13) mEq/L BUN (7-18) mg/dL Creatinine (0.55-1.02) mg/dL Est Cr Clr Drug Dosing mL/min Estimated GFR (MDRD) BUN/Creatinine Ratio (No establ ref range) Glucose (74-99) mg/dL Lactic Acid (0.4-2.0) mmol/L Calcium (8.5-10.1) mg/dL Magnesium (1.8-2.4) mg/dL Total Bilirubin (0.2-1.0) mg/dL AST (15-37) U/L ALT (14-59) U/L Alkaline Phosphatase (46-116) U/L Troponin I (0.000-0.056) ng/mL Total Protein (6.4-8.2) g/dL Albumin (3.4-5.0) g/dL Globulin Albumin/Globulin Ratio Urine Color Dark yellow (YELLOW) Urine Appearance Cloudy (CLEAR) Urine pH 6.0 (5.0-9.0) Ur Specific [place] >= 1.030 (1.005-1.030) Urine Protein >=300 H (NEGATIVE) Urine Glucose (UA) Negative (NEGATIVE) Urine Ketones Trace H (NEGATIVE) Urine Occult Blood Trace-intact H (NEGATIVE) Urine Nitrite Positive H (NEGATIVE) Urine Bilirubin Moderate H (NEGATIVE) Urine Urobilinogen 2.0 H (0.2-1.0) mg/dL Ur Leukocyte Esterase Trace H (NEGATIVE) Urine RBC 10-20 H /HPF Urine WBC 50-75 H (0-5/HPF) /HPF Ur Epithelial Cells Many H (NOT SEEN) /HPF Amorphous Sediment Many H (NOT SEEN) /HPF Urine Bacteria Many H (0-FEW/HPF) /HPF Urine Mucus Many H (NOT SEEN) /LPF Ethyl Alcohol < 3 (0) mg/dL Meds: Medications Generic Name Dose Route Start Last Admin Trade Name Freq PRN Reason Stop Dose Admin Sodium Chloride 10 ml 04/07/20 12:16 04/07/20 12:30 Saline Flush FLUSH 10 ml ASDIRECTED PRN Administration Keep Vein Open Discontinued Medications Generic Name Dose Route Start Last Admin Trade Name Freq PRN Reason Stop Dose Admin Sodium Chloride 1,000 mls @ 999 mls/hr 04/07/20 12:26 04/07/20 12:30 Normal Saline IV 04/07/20 13:26 999 mls/hr .BOLUS ONE Administration Piperacillin Sod/Tazobactam 100 mls @ 200 mls/hr 04/07/20 13:40 Sod 3.375 gm/ Sodium Chloride IV 04/07/20 14:09 ONETIME ONE Iopamidol 100 ml 04/07/20 13:39 08/03/20 14:11 Isovue-300 (61%) IVPUSH 04/07/20 13:40 75 ml ONETIME ONE Administration - Radiology Interpretation Free Text/Narrative:: CT Abd/Pelvis: fatty liver recommends f/u, diverticulosis but no diverticulitis, see Rad. report. Departure - Departure Time of Disposition: 14:49 (admitted to Dr. Shaffer) Disposition: Admitted As Inpatient 64 Condition: Fair Clinical Impression: Pyelonephritis of left kidney, Fatty liver Sepsis Qualifiers: Sepsis type: sepsis due to unspecified organism Sepsis acute organ dysfunction status: unspecified Qualified Code(s): A41.9 - Sepsis, unspecified organism - Discharge Information *PRESCRIPTION DRUG MONITORING PROGRAM REVIEWED*: Not Applicable *COPY OF PRESCRIPTION DRUG MONITORING REPORT IN PATIENT ANA: Not Applicable Forms: ED Department Discharge Sepsis Event Note (ED) - Focused Exam Vital Signs: Vital Signs Temp Pulse Resp BP Pulse Ox 04/07/20 12:16 95.1 F L 97 16 152/97 H 98 - My Orders Last 24 Hours: My Active Orders 04/07/20 12:16 Peripheral IV Care [RC] . DIRECTED Sodium Chloride 0.9% [Saline Flush] 10 ml FLUSH ASDIRECTED PRN Peripheral IV Insertion Adult [OM.PC] Stat 04/07/20 12:26 EKG 12 Lead [EKG Documentation Completion] [RC] STAT 04/07/20 12:40 Blood Culture x2 Reflex Set [OM.PC] Stat 04/07/20 12:57 CULTURE BLOOD [BC] Stat 04/07/20 13:05 CULTURE BLOOD [BC] Stat 04/07/20 13:46 CULTURE URINE [RM] Stat - Assessment/Plan Last 24 Hours: My Active Orders 04/07/20 12:16 Peripheral IV Care [RC] . DIRECTED Sodium Chloride 0.9% [Saline Flush] 10 ml FLUSH ASDIRECTED PRN Peripheral IV Insertion Adult [OM.PC] Stat 04/07/20 12:26 EKG 12 Lead [EKG Documentation Completion] [RC] STAT 04/07/20 12:40 Blood Culture x2 Reflex Set [OM.PC] Stat 04/07/20 12:57 CULTURE BLOOD [BC] Stat 04/07/20 13:05 CULTURE BLOOD [BC] Stat 04/07/20 13:46 CULTURE URINE [RM] Stat
[2020-04-07] MEDS ORDERED: Sodium Chloride 0.9% 1,000 ML IV ONE (12:26)
[2020-04-07 13:35] LABS: ANION GAP 10.6 mEq/L (7-13); CHLORIDE,CL 95 mmol/L (98-107); SODIUM,NA 135 mmol/L (136-145)
[2020-04-07] MEDS ORDERED: Iopamidol 612 MG/ML 100 ML Bottle IVPUSH ONE (13:39)
[2020-04-07] MEDS ORDERED: Piperacillin/Tazobactam 3.375 GM in Sodium Chloride 0.9% 100 ML IV ONE (13:40)
--- NOTE | 2020-04-07 14:39 | CT ---
EXAMINATION: Abdomen Pelvis w Cont SEX: Female AGE: 54 years CLINICAL HISTORY: 54-year-old hypertensive obese diabetic female smoker complaining of left sided abdominal pain (WBC >15,000). History of "diverticulitis, fatty liver and cholecystectomy". Scan technique: Volume acquisition of data from the abdomen and pelvis obtained without oral contrast but during the intravenous infusion 75 cc nonionic Isovue contrast induced cc per second via injector while patient was lying supine on the Siemens multi slice scanner [place], [place]. All data archived in the PACS system for storage, reformatting and study. INTERPRETATION: 1. Large hiatus hernia incarcerated in the lower middle mediastinum. No sign of mechanical small or large bowel obstruction. 2. *Large fatty liver with inhomogeneous density. (Follow-up Ultrasound and/or MRI liver suggested) Cholecystectomy. 3. Diverticula scattered distal descending and sigmoid colon without current signs of associated inflammation i.e. no pericolonic inflammatory "dirty" peritoneal fat, abscess, ascites or free air. 4. Spleen, pancreas, adrenal glands and kidneys unremarkable. Calcifications normal caliber ectatic aorta. 5. Midline uterus unremarkable. Empty bladder. No adnexal mass. No pelvic, mesenteric or retroperitoneal lymphadenopathy. No abdominal mass lesion. Normal terminal ileum RLQ. Appendix not seen. 6. No ventral wall or inguinal hernias. Large abdominal soft tissue pannus. Pelvic phleboliths. CONCLUSION: Suspicious appearance large fatty liver (follow-up suggested). Cholecystectomy. Diverticulosis without associated CT evidence of intraperitoneal inflammation. Hiatus hernia.
[2020-04-07] MEDS ORDERED: Albuterol/Ipratropium 3.0-0.5 MG/3 ML Neb Soln NEB PRN (15:45)
[2020-04-07] MEDS ORDERED: Morphine 2 MG/ML SYRINGE IVPUSH PRN (15:48)
[2020-04-07] MEDS ORDERED: Acetaminophen 325 MG Tab PO PRN (15:48)
[2020-04-07] MEDS ORDERED: Docusate Sodium 100 MG Cap PO PRN (15:48)
--- NOTE | 2020-04-07 15:59 | PCM.HP ---
H&P History of Present Illness - General Date of Service: 04/07/20 Admit Problem/Dx: Admission Diagnosis/Problem Admission Diagnosis/Problem Pyelonephritis Source of Information: Patient - History of Present Illness Initial Comments - Free Text/Narative: 54-year-old lady with history of hypertension, diverticulitis, partial bowel resection presented with left flank pain, on and off numbness in bilateral feet. [place] chills. No chest pain, no shortness of breath She was nauseous, she was not taking her potassium supplements. In the ER the patient was noted to have a abnormal urine analysis. CT of the abdomen showed hiatal hernia not causing obstruction. No diverticulitis, noted to have fatty liver Bilateral Feet Pain Score (Numeric/FACES): 5 - Related Data Allergies/Adverse Reactions: Allergies Allergy/AdvReac Type Severity Reaction Status Date / Time codeine AdvReac Nausea and Verified 04/07/20 12:16 Vomiting Home Medications: Home Meds Esomeprazole Magnesium [Nexium 24Hr] 20 mg PO DAILY 07/20/18 [History] Fluticasone/Vilanterol [Breo Ellipta 100-25 MCG Inhalation Kit] 1 puff PO DAILY 06/18/19 [History] Metoprolol Tartrate 25 mg PO DAILY 06/18/19 [History] amLODIPine Besylate [Amlodipine Besylate] 5 mg PO DAILY 06/18/19 [History] Potassium Chloride 20 meq PO BID 30 Days #60 tablet.er 12/10/19 [Rx] Past Medical History HEENT History: Reports: Cataract, Impaired Vision, Sinusitis Cardiovascular History: Reports: Hypertension Respiratory History: Reports: Asthma, Bronchitis, Recurrent, COPD, Other (See Below) Other Respiratory History: emphysema Gastrointestinal History: Reports: GERD, Other (See Below) Other Gastrointestinal History: diverticulitis Genitourinary History: Reports: None [employer] History: Reports: , 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 heel spurs left Neurological History: Reports: Migraines Psychiatric History: Reports: None Endocrine/Metabolic History: Reports: Obesity/BMI 30+ Hematologic History: Reports: None Immunologic History: Reports: None Oncologic (Cancer) History: Reports: None Dermatologic History: Reports: None - Infectious Disease History Infectious Disease History: Reports: Chicken Pox, Measles, Mumps - Past Surgical History Head Surgeries/Procedures: Reports: None HEENT Surgical History: Reports: Adenoidectomy, Cataract Surgery, Eye Surgery, Tonsillectomy Other HEENT Surgeries/Procedures: bilateal cataract surgery Cardiovascular Surgical History: Reports: None Respiratory Surgical History: Reports: None GI Surgical History: Reports: Cholecystectomy, Colonoscopy, EGD, Other (See Below) Other GI Surgeries/Procedures: sigmoidectomy oct 2018 Female Surgical History: Reports: Tubal Ligation Endocrine Surgical History: Reports: None Neurological Surgical History: Reports: None Musculoskeletal Surgical History: Reports: None Dermatological Surgical History: Reports: None Social & Family History - Family History Family Medical History: Noncontributory - Tobacco Use Smoking Status *Q: Current Every Day Smoker Years of Tobacco use: 20 Packs/Tins Daily: 0.5 - Caffeine Use Caffeine Use: Reports: Coffee, Soda Caffeine Use Comment: 2 cups coffee. 4L daily - Recreational Drug Use Recreational Drug Use: No - Living Situation & Occupation Living situation: Reports: Alone Occupation: Employed H&P Review of Systems - Review of Systems: Review Of Systems: See Below General: Reports: Chills, Weakness, Fatigue Pulmonary: Denies: Shortness of Breath Cardiovascular: Denies: Chest Pain, Edema Gastrointestinal: Reports: Abdominal Pain Genitourinary: Reports: Dysuria (for 1 week) Musculoskeletal: Denies: Neck Pain, Back Pain Psychiatric: Denies: Confusion Exam - Exam Exam: See Below - Vital Signs Vital Signs: Last Vital Signs Temp 95.1 F L 04/07/20 12:16 Pulse 97 04/07/20 12:16 Resp 16 04/07/20 12:16 BP 152/97 H 04/07/20 12:16 Pulse Ox 98 04/07/20 12:16 Weight: 214 lb 12.8 oz - Exam Quality Assessment: Supplemental Oxygen General: Alert, Oriented Neck: Supple Lungs: Clear to Auscultation, Normal Respiratory Effort Cardiovascular: Regular Rate, Regular Rhythm GI/Abdominal Exam: Normal Bowel Sounds, Soft, Other (le) Back Exam: No: CVA Tenderness (L) Extremities: Normal Inspection, No Pedal Edema. No: Leg Pain (No current pain in the foot, no burning), Mottled, Pallor Skin: Warm, Dry Neuro Extensive - Mental Status: Alert, Oriented x3, Normal Mood/Affect Psychiatric: Alert, Normal Affect, Normal Mood - Patient Data Lab Results Last 24 hrs: Laboratory Results - last 24 hr 04/07/20 04/07/20 04/07/20 Range/Units 11:29 12:57 12:57 WBC 15.7 H (5.0-10.0) 10^3/uL RBC 3.20 L (4.2-5.4) 10^6/uL Hgb 12.1 (12.0-16.0) g/dL Hct 36.0 L (37.0-47.0) % MCV 112.5 H D (80-100) fL MCH 37.8 H (27.0-34.0) pg MCHC 33.6 (33.0-35.0) g/dL Plt Count 421 (150-450) 10^3/uL Neut % (Auto) 83.2 H (42.2-75.2) % Lymph % (Auto) 10.9 L (20.5-50.1) % [place] % (Auto) 5.1 (2-8) % Eos % (Auto) 0.7 L (1.0-3.0) % Baso % (Auto) 0.1 (0.0-1.0) % Sodium 135 L (136-145) mmol/L Potassium 3.6 (3.5-5.1) mmol/L Chloride 95 L (98-107) mmol/L Carbon Dioxide 33 H (21-32) mmol/L Anion Gap 10.6 (7-13) mEq/L BUN 4 L (7-18) mg/dL Creatinine 0.88 (0.55-1.02) mg/dL Est Cr Clr Drug Dosing 56.46 mL/min Estimated GFR (MDRD) > 60 BUN/Creatinine Ratio 4.5 (No establ ref range) Glucose 107 H (74-99) mg/dL Lactic Acid 5.5 H* (0.4-2.0) mmol/L Calcium 8.3 L (8.5-10.1) mg/dL Magnesium 1.3 L (1.8-2.4) mg/dL Total Bilirubin 1.3 H (0.2-1.0) mg/dL AST 102 H (15-37) U/L ALT 25 (14-59) U/L Alkaline Phosphatase 355 H (46-116) U/L Troponin I < 0.017 (0.000-0.056) ng/mL Total Protein 7.0 (6.4-8.2) g/dL Albumin 2.7 L (3.4-5.0) g/dL Globulin 4.3 Albumin/Globulin Ratio 0.63 Urine Color (YELLOW) Urine Appearance (CLEAR) Urine pH (5.0-9.0) Ur Specific [place] (1.005-1.030) Urine Protein (NEGATIVE) Urine Glucose (UA) (NEGATIVE) Urine Ketones (NEGATIVE) Urine Occult Blood (NEGATIVE) Urine Nitrite (NEGATIVE) Urine Bilirubin (NEGATIVE) Urine Urobilinogen (0.2-1.0) mg/dL Ur Leukocyte Esterase (NEGATIVE) Urine RBC /HPF Urine WBC (0-5/HPF) /HPF Ur Epithelial Cells (NOT SEEN) /HPF Amorphous Sediment (NOT SEEN) /HPF Urine Bacteria (0-FEW/HPF) /HPF Urine Mucus (NOT SEEN) /LPF Ethyl Alcohol (0) mg/dL 04/07/20 04/07/20 Range/Units 12:57 13:46 WBC (5.0-10.0) 10^3/uL RBC (4.2-5.4) 10^6/uL Hgb (12.0-16.0) g/dL Hct (37.0-47.0) % MCV (80-100) fL MCH (27.0-34.0) pg MCHC (33.0-35.0) g/dL Plt Count (150-450) 10^3/uL Neut % (Auto) (42.2-75.2) % Lymph % (Auto) (20.5-50.1) % [place] % (Auto) (2-8) % Eos % (Auto) (1.0-3.0) % Baso % (Auto) (0.0-1.0) % Sodium (136-145) mmol/L Potassium (3.5-5.1) mmol/L Chloride (98-107) mmol/L Carbon Dioxide (21-32) mmol/L Anion Gap (7-13) mEq/L BUN (7-18) mg/dL Creatinine (0.55-1.02) mg/dL Est Cr Clr Drug Dosing mL/min Estimated GFR (MDRD) BUN/Creatinine Ratio (No establ ref range) Glucose (74-99) mg/dL Lactic Acid (0.4-2.0) mmol/L Calcium (8.5-10.1) mg/dL Magnesium (1.8-2.4) mg/dL Total Bilirubin (0.2-1.0) mg/dL AST (15-37) U/L ALT (14-59) U/L Alkaline Phosphatase (46-116) U/L Troponin I (0.000-0.056) ng/mL Total Protein (6.4-8.2) g/dL Albumin (3.4-5.0) g/dL Globulin Albumin/Globulin Ratio Urine Color Dark yellow (YELLOW) Urine Appearance Cloudy (CLEAR) Urine pH 6.0 (5.0-9.0) Ur Specific [place] >= 1.030 (1.005-1.030) Urine Protein >=300 H (NEGATIVE) Urine Glucose (UA) Negative (NEGATIVE) Urine Ketones Trace H (NEGATIVE) Urine Occult Blood Trace-intact H (NEGATIVE) Urine Nitrite Positive H (NEGATIVE) Urine Bilirubin Moderate H (NEGATIVE) Urine Urobilinogen 2.0 H (0.2-1.0) mg/dL Ur Leukocyte Esterase Trace H (NEGATIVE) Urine RBC 10-20 H /HPF Urine WBC 50-75 H (0-5/HPF) /HPF Ur Epithelial Cells Many H (NOT SEEN) /HPF Amorphous Sediment Many H (NOT SEEN) /HPF Urine Bacteria Many H (0-FEW/HPF) /HPF Urine Mucus Many H (NOT SEEN) /LPF Ethyl Alcohol < 3 (0) mg/dL Result Diagrams: 04/07/20 11:29 04/07/20 12:57 [place] Results Last 24 hrs: Microbiology 04/07/20 12:57 Anaerobic Blood Culture - Final Blood - Venous - Problem List (1) Abdominal pain SNOMED Code(s): 74274062 ICD Code: R10.9 - UNSPECIFIED ABDOMINAL PAIN Status: Acute Current Visit: No Qualifiers: Abdominal location: left lower quadrant Qualified Code(s): R10.32 - Left lower quadrant pain (2) Diverticulosis of sigmoid colon SNOMED Code(s): 938797872 ICD Code: K57.30 - DVRTCLOS OF LG INT W/O PERFORATION OR ABSCESS W/O BLEEDING Status: Acute Current Visit: No (3) Fatty liver SNOMED Code(s): 143964780 ICD Code: K76.0 - FATTY (CHANGE OF) LIVER, NOT ELSEWHERE CLASSIFIED Status: Acute Current Visit: No (4) Hypertension SNOMED Code(s): 52814692 ICD Code: I10 - ESSENTIAL (PRIMARY) HYPERTENSION Status: Acute Current Visit: No (5) Sepsis SNOMED Code(s): 12709124 ICD Code: A41.9 - SEPSIS, UNSPECIFIED ORGANISM Status: Acute Current Visit: No Qualifiers: Sepsis type: sepsis due to unspecified organism Sepsis acute organ dysfunction status: unspecified Qualified Code(s): A41.9 - Sepsis, unspecified organism (6) UTI (urinary tract infection) SNOMED Code(s): 01635483 ICD Code: N39.0 - URINARY TRACT INFECTION, SITE NOT SPECIFIED Status: Acute Current Visit: No Qualifiers: Urinary tract infection type: acute cystitis Hematuria presence: with hematuria Qualified Code(s): N30.01 - Acute cystitis with hematuria Problem List Initiated/Reviewed/Updated: Yes Orders Last 24hrs: Active Orders 24 hr Category Date Time Status Admission Diagnosis [ADT] Routine ADT 04/07/20 14:50 Ordered Admission Status [Patient Status] [ADT] Routine ADT 04/07/20 14:50 Active Antiembolic Devices [RC] PER UNIT ROUTINE Care 04/07/20 15:49 Ordered EKG 12 Lead [EKG Documentation Completion] [RC] STAT Care 04/07/20 12:26 Active Oxygen Therapy [RC] PRN Care 04/07/20 15:48 Ordered Peripheral IV Care [RC] . DIRECTED Care 04/07/20 12:16 Active RT Aerosol Therapy [RC] ASDIRECTED Care 04/07/20 15:46 Ordered RT Aerosol Therapy [RC] ASDIRECTED Care 04/07/20 15:46 Ordered Up With Assistance [RC] ASDIRECTED Care 04/07/20 15:48 Ordered VTE/DVT Education [RC] PER UNIT ROUTINE Care 04/07/20 15:48 Ordered Vital Signs [RC] Q4H Care 04/07/20 15:48 Ordered Regular Diet [DIET] Diet 04/07/20 Dinner Ordered CBC W/O DIFF,HEMOGRAM [HEME] AM Lab 04/08/20 05:11 Ordered CBC WITH AUTO DIFF [HEME] AM Lab 04/08/20 05:11 Ordered CULTURE BLOOD [BC] Stat Lab 04/07/20 12:57 Results CULTURE BLOOD [BC] Stat Lab 04/07/20 13:05 Received CULTURE URINE [RM] Stat Lab 04/07/20 13:46 Received LACTIC ACID [CHEM] Timed Lab 04/07/20 17:00 Ordered Acetaminophen [Tylenol] Med 04/07/20 15:48 Ordered 650 mg PO Q4H PRN Acetaminophen/HYDROcodone [[place] 325-10 MG] Med 04/07/20 15:48 Ordered 1 tab PO Q4H PRN Albuterol/Ipratropium [DuoNeb 3.0-0.5 MG/3 ML] Med 04/07/20 15:45 Ordered 3 ml NEB Q2H PRN Albuterol/Ipratropium [DuoNeb 3.0-0.5 MG/3 ML] Med 04/07/20 18:00 Ordered 3 ml NEB Q6HRRT Budesonide [Pulmicort] Med 04/07/20 18:00 Ordered 0.5 mg NEB BIDRT Docusate Sodium [Colace] Med 04/07/20 15:48 Ordered 100 mg PO BID PRN Heparin Sodium Med 04/07/20 22:00 Ordered 5,000 units SUBCUT Q8HR Metoprolol Succinate [Toprol XL] Med 04/08/20 09:00 Ordered 25 mg PO DAILY Morphine Med 04/07/20 15:48 Ordered 2 mg IVPUSH Q2H PRN Ondansetron [Zofran] Med 04/07/20 15:48 Ordered 4 mg IVPUSH Q6H PRN Potassium Chloride [Potassium Chloride] Med 04/07/20 21:00 Ordered 20 meq PO BID Sodium Chloride 0.9% with KCl 20 mEq @ 125 mL/Hr (1000 Med 04/07/20 16:00 Ordered mL) NS + KCl 20mEq/L [Normal Saline with 20 mEq KCl] 1,000 ml IV ASDIRECTED Temazepam [Restoril] Med 04/07/20 15:48 Ordered 15 mg PO BEDTIME PRN amLODIPine [Norvasc] Med 04/08/20 09:00 Ordered 5 mg PO DAILY cefTRIAXone [Rocephin] 1 gm Med 04/08/20 08:00 Ordered Sodium Chloride 0.9% [Normal Saline] 50 ml IV Q24H Antiembolic Hose [OM.PC] Per Unit Routine Oth 04/07/20 15:49 Ordered Blood Culture x2 Reflex Set [OM.PC] Stat Oth 04/07/20 12:40 Ordered Peripheral IV Insertion Adult [OM.PC] Stat Oth 04/07/20 12:16 Ordered Resuscitation Status Routine Resus Stat 04/07/20 15:48 Ordered Medication Orders Acetaminophen (Tylenol) 650 mg PO Q4H PRN PRN Reason: Pain (Mild 1-3)/fever Hydrocodone Bitart/Acetaminophen ([place] 325-10 Mg) 1 tab PO Q4H PRN PRN Reason: Pain (moderate 4-6) Albuterol/Ipratropium (Duoneb 3.0-0.5 Mg/3 Ml) 3 ml NEB Q6HRRT FELICITA Albuterol/Ipratropium (Duoneb 3.0-0.5 Mg/3 Ml) 3 ml NEB Q2H PRN PRN Reason: sob Amlodipine Besylate (Norvasc) 5 mg PO DAILY FELICITA Budesonide (Pulmicort) 0.5 mg NEB BIDRT FELICITA Docusate Sodium (Colace) 100 mg PO BID PRN PRN Reason: Constipation Heparin Sodium (Porcine) (Heparin Sodium) 5,000 units SUBCUT Q8HR FELICITA Ceftriaxone Sodium 1 gm/ (Sodium Chloride) 50 mls @ 100 mls/hr IV Q24H FELICITA Potassium Chloride/Sodium Chloride (Normal Saline With 20 Meq Kcl) 1,000 mls @ 125 mls/hr IV ASDIRECTED FELICITA Metoprolol Succinate (Toprol Xl) 25 mg PO DAILY FELICITA Morphine Sulfate (Morphine) 2 mg IVPUSH Q2H PRN PRN Reason: Pain (severe 7-10) Non-Formulary Medication (Potassium Chloride [Potassium Chloride]) 20 meq PO BID FELICITA Ondansetron HCl (Zofran) 4 mg IVPUSH Q6H PRN PRN Reason: Nausea/Vomiting Temazepam (Restoril) 15 mg PO BEDTIME PRN PRN Reason: Sleep Assessment/Plan Comment:: 54-year-old lady presented with left flank pain, on and off numbness in bilateral feet. [place] chills. No chest pain, no shortness of breath She was nauseous, she was not taking her potassium supplements. In the ER the patient was noted to have a abnormal urine analysis. CT of the abdomen showed hiatal hernia not causing obstruction. No diverticulitis, noted to have fatty liver Urinary tract infection with possible pyelonephritis Obtain urine culture Obtain blood culture Start empirical treatment with ceftriaxone Sepsis associated with the UTI Will hydrate the patient well Repeat lactic acid Treat infection Hyponatremia Mild We will follow with hydration History of hypokalemia Continue potassium supplement Monitor electrolytes and replace as needed Hypertension Continue Norvasc, metoprolol COPD We will substitute Brio with nebulizers DVT prophylaxis with subcutaneous heparin
[2020-04-07] MEDS: NS + KCl 20mEq/L 1,000 ML IV SCH (16:11)
[2020-04-07] MEDS: Albuterol/Ipratropium 3.0-0.5 MG/3 ML Neb Soln NEB SCH (18:03)
[2020-04-07] MEDS: Budesonide 0.5 MG/2 ML Neb Susp NEB SCH (18:03)
[2020-04-07] MEDS: Ondansetron 4 MG/2 ML SDV IVPUSH PRN (20:51)
[2020-04-07] MEDS ORDERED: Temazepam 15 MG Cap PO PRN (21:00)
[2020-04-07] MEDS ORDERED: Non-Formulary Medication 1 Each (Potassium Chloride [Potassium Chloride] 20 MEQ) PO SCH (21:00)
[2020-04-07] MEDS: Heparin Sodium 5,000 Units/ML Vial SUBCUT SCH (23:31)
[2020-04-07] MEDS: Acetaminophen/HYDROcodone 325-10 MG Tab PO PRN (23:35)
[2020-04-08] MEDS: NS + KCl 20mEq/L 1,000 ML IV SCH ×3 (00:32→18:02)
[2020-04-08] MEDS: Albuterol/Ipratropium 3.0-0.5 MG/3 ML Neb Soln NEB SCH ×4 (00:33→18:41)
[2020-04-08] MEDS: Heparin Sodium 5,000 Units/ML Vial SUBCUT SCH ×3 (06:53→22:25)
[2020-04-08] MEDS: cefTRIAXone 1 GM in Sodium Chloride 0.9% 50 ML IV SCH (06:54)
[2020-04-08] MEDS: Budesonide 0.5 MG/2 ML Neb Susp NEB SCH ×2 (07:21→18:42)
[2020-04-08] MEDS: Acetaminophen/HYDROcodone 325-10 MG Tab PO PRN ×3 (08:28→22:37)
[2020-04-08 09:36] LABS: ANION GAP 11.3 mEq/L (7-13); CHLORIDE,CL 99 mmol/L (98-107); SODIUM,NA 138 mmol/L (136-145)
[2020-04-08] MEDS ORDERED: Potassium Chloride 10 MEQ Tab.ER PO ONE (10:30)
--- NOTE | 2020-04-08 10:37 | PCM.PN ---
- General Info Date of Service: 04/08/20 Admission Dx/Problem (Free Text): Admission Diagnosis/Problem Admission Diagnosis/Problem Pyelonephritis Subjective Update: Continues to have left flank pain, numbness of the mid abdominal area, burning pain of bilateral feet. No nausea or vomiting but has poor appetite. No chest pain or shortness of breath. No fever overnight. Functional Status: Reports: Ambulating, Urinating - Review of Systems General: Denies: Fever Pulmonary: Denies: Shortness of Breath Cardiovascular: Denies: Chest Pain, Edema Genitourinary: Reports: Flank Pain (Left sided) Neurological: Denies: Confusion - Patient Data Vitals - Most Recent: Last Vital Signs Temp 97.9 F 04/08/20 07:59 Pulse 80 04/08/20 07:59 Resp 20 04/08/20 07:59 BP 136/77 04/08/20 07:59 Pulse Ox 95 04/08/20 07:59 Weight - Most Recent: 214 lb 12.8 oz I&O - Last 24 Hours: Intake & Output 04/07/20 04/08/20 04/08/20 22:59 06:59 14:59 Intake Total 200 1725 1200 Output Total 300 Balance 200 1425 1200 Lab Results Last 24 Hours: Laboratory Results - last 24 hr 04/07/20 04/07/20 04/07/20 Range/Units 11:29 12:57 12:57 WBC 15.7 H (5.0-10.0) 10^3/uL RBC 3.20 L (4.2-5.4) 10^6/uL Hgb 12.1 (12.0-16.0) g/dL Hct 36.0 L (37.0-47.0) % MCV 112.5 H D (80-100) fL MCH 37.8 H (27.0-34.0) pg MCHC 33.6 (33.0-35.0) g/dL Plt Count 421 (150-450) 10^3/uL Neut % (Auto) 83.2 H (42.2-75.2) % Lymph % (Auto) 10.9 L (20.5-50.1) % [place] % (Auto) 5.1 (2-8) % Eos % (Auto) 0.7 L (1.0-3.0) % Baso % (Auto) 0.1 (0.0-1.0) % Sodium 135 L (136-145) mmol/L Potassium 3.6 (3.5-5.1) mmol/L Chloride 95 L (98-107) mmol/L Carbon Dioxide 33 H (21-32) mmol/L Anion Gap 10.6 (7-13) mEq/L BUN 4 L (7-18) mg/dL Creatinine 0.88 (0.55-1.02) mg/dL Est Cr Clr Drug Dosing 56.46 mL/min Estimated GFR (MDRD) > 60 BUN/Creatinine Ratio 4.5 (No establ ref range) Glucose 107 H (74-99) mg/dL Lactic Acid 5.5 H* (0.4-2.0) mmol/L Calcium 8.3 L (8.5-10.1) mg/dL Magnesium 1.3 L (1.8-2.4) mg/dL Total Bilirubin 1.3 H (0.2-1.0) mg/dL Direct Bilirubin (0.0-0.2) mg/dL Indirect Bilirubin AST 102 H (15-37) U/L ALT 25 (14-59) U/L Alkaline Phosphatase 355 H (46-116) U/L Creatine Kinase (16-191) U/L Troponin I < 0.017 (0.000-0.056) ng/mL Total Protein 7.0 (6.4-8.2) g/dL Albumin 2.7 L (3.4-5.0) g/dL Globulin 4.3 Albumin/Globulin Ratio 0.63 Urine Color (YELLOW) Urine Appearance (CLEAR) Urine pH (5.0-9.0) Ur Specific [place] (1.005-1.030) Urine Protein (NEGATIVE) Urine Glucose (UA) (NEGATIVE) Urine Ketones (NEGATIVE) Urine Occult Blood (NEGATIVE) Urine Nitrite (NEGATIVE) Urine Bilirubin (NEGATIVE) Urine Urobilinogen (0.2-1.0) mg/dL Ur Leukocyte Esterase (NEGATIVE) Urine RBC /HPF Urine WBC (0-5/HPF) /HPF Ur Epithelial Cells (NOT SEEN) /HPF Amorphous Sediment (NOT SEEN) /HPF Urine Bacteria (0-FEW/HPF) /HPF Urine Mucus (NOT SEEN) /LPF Ethyl Alcohol (0) mg/dL 0804/07/20 04/07/20 Range/Units 12:57 13:46 17:30 WBC (5.0-10.0) 10^3/uL RBC (4.2-5.4) 10^6/uL Hgb (12.0-16.0) g/dL Hct (37.0-47.0) % MCV (80-100) fL MCH (27.0-34.0) pg MCHC (33.0-35.0) g/dL Plt Count (150-450) 10^3/uL Neut % (Auto) (42.2-75.2) % Lymph % (Auto) (20.5-50.1) % [place] % (Auto) (2-8) % Eos % (Auto) (1.0-3.0) % Baso % (Auto) (0.0-1.0) % Sodium (136-145) mmol/L Potassium (3.5-5.1) mmol/L Chloride (98-107) mmol/L Carbon Dioxide (21-32) mmol/L Anion Gap (7-13) mEq/L BUN (7-18) mg/dL Creatinine (0.55-1.02) mg/dL Est Cr Clr Drug Dosing mL/min Estimated GFR (MDRD) BUN/Creatinine Ratio (No establ ref range) Glucose (74-99) mg/dL Lactic Acid 4.2 H* (0.4-2.0) mmol/L Calcium (8.5-10.1) mg/dL Magnesium (1.8-2.4) mg/dL Total Bilirubin (0.2-1.0) mg/dL Direct Bilirubin (0.0-0.2) mg/dL Indirect Bilirubin AST (15-37) U/L ALT (14-59) U/L Alkaline Phosphatase (46-116) U/L Creatine Kinase (16-191) U/L Troponin I (0.000-0.056) ng/mL Total Protein (6.4-8.2) g/dL Albumin (3.4-5.0) g/dL Globulin Albumin/Globulin Ratio Urine Color Dark yellow (YELLOW) Urine Appearance Cloudy (CLEAR) Urine pH 6.0 (5.0-9.0) Ur Specific [place] >= 1.030 (1.005-1.030) Urine Protein >=300 H (NEGATIVE) Urine Glucose (UA) Negative (NEGATIVE) Urine Ketones Trace H (NEGATIVE) Urine Occult Blood Trace-intact H (NEGATIVE) Urine Nitrite Positive H (NEGATIVE) Urine Bilirubin Moderate H (NEGATIVE) Urine Urobilinogen 2.0 H (0.2-1.0) mg/dL Ur Leukocyte Esterase Trace H (NEGATIVE) Urine RBC 10-20 H /HPF Urine WBC 50-75 H (0-5/HPF) /HPF Ur Epithelial Cells Many H (NOT SEEN) /HPF Amorphous Sediment Many H (NOT SEEN) /HPF Urine Bacteria Many H (0-FEW/HPF) /HPF Urine Mucus Many H (NOT SEEN) /LPF Ethyl Alcohol < 3 (0) mg/dL 04/07/20 04/08/20 04/08/20 Range/Units 21:00 06:03 06:23 WBC 12.0 H (5.0-10.0) 10^3/uL RBC 2.48 L (4.2-5.4) 10^6/uL Hgb 9.8 L D (12.0-16.0) g/dL Hct 28.7 L (37.0-47.0) % MCV 115.7 H D (80-100) fL MCH 39.5 H (27.0-34.0) pg MCHC 34.1 (33.0-35.0) g/dL Plt Count 307 D (150-450) 10^3/uL Neut % (Auto) (42.2-75.2) % Lymph % (Auto) (20.5-50.1) % [place] % (Auto) (2-8) % Eos % (Auto) (1.0-3.0) % Baso % (Auto) (0.0-1.0) % Sodium 138 (136-145) mmol/L Potassium 3.3 L (3.5-5.1) mmol/L Chloride 99 (98-107) mmol/L Carbon Dioxide 31 (21-32) mmol/L Anion Gap 11.3 (7-13) mEq/L BUN 6 L (7-18) mg/dL Creatinine 0.76 (0.55-1.02) mg/dL Est Cr Clr Drug Dosing 65.37 mL/min Estimated GFR (MDRD) > 60 BUN/Creatinine Ratio (No establ ref range) Glucose 73 L (74-99) mg/dL Lactic Acid 6.2 H* (0.4-2.0) mmol/L Calcium 7.7 L (8.5-10.1) mg/dL Magnesium (1.8-2.4) mg/dL Total Bilirubin 0.8 (0.2-1.0) mg/dL Direct Bilirubin 0.3 H (0.0-0.2) mg/dL Indirect Bilirubin 0.5 AST 85 H (15-37) U/L ALT 22 (14-59) U/L Alkaline Phosphatase 294 H (46-116) U/L Creatine Kinase 67 (16-191) U/L Troponin I (0.000-0.056) ng/mL Total Protein 5.9 L (6.4-8.2) g/dL Albumin 2.3 L (3.4-5.0) g/dL Globulin 3.6 Albumin/Globulin Ratio 0.64 Urine Color (YELLOW) Urine Appearance (CLEAR) Urine pH (5.0-9.0) Ur Specific [place] (1.005-1.030) Urine Protein (NEGATIVE) Urine Glucose (UA) (NEGATIVE) Urine Ketones (NEGATIVE) Urine Occult Blood (NEGATIVE) Urine Nitrite (NEGATIVE) Urine Bilirubin (NEGATIVE) Urine Urobilinogen (0.2-1.0) mg/dL Ur Leukocyte Esterase (NEGATIVE) Urine RBC /HPF Urine WBC (0-5/HPF) /HPF Ur Epithelial Cells (NOT SEEN) /HPF Amorphous Sediment (NOT SEEN) /HPF Urine Bacteria (0-FEW/HPF) /HPF Urine Mucus (NOT SEEN) /LPF Ethyl Alcohol (0) mg/dL 08/04/20 Range/Units 06:23 WBC (5.0-10.0) 10^3/uL RBC (4.2-5.4) 10^6/uL Hgb (12.0-16.0) g/dL Hct (37.0-47.0) % MCV (80-100) fL MCH (27.0-34.0) pg MCHC (33.0-35.0) g/dL Plt Count (150-450) 10^3/uL Neut % (Auto) (42.2-75.2) % Lymph % (Auto) (20.5-50.1) % [place] % (Auto) (2-8) % Eos % (Auto) (1.0-3.0) % Baso % (Auto) (0.0-1.0) % Sodium (136-145) mmol/L Potassium (3.5-5.1) mmol/L Chloride (98-107) mmol/L Carbon Dioxide (21-32) mmol/L Anion Gap (7-13) mEq/L BUN (7-18) mg/dL Creatinine (0.55-1.02) mg/dL Est Cr Clr Drug Dosing mL/min Estimated GFR (MDRD) BUN/Creatinine Ratio (No establ ref range) Glucose (74-99) mg/dL Lactic Acid 4.5 H* (0.4-2.0) mmol/L Calcium (8.5-10.1) mg/dL Magnesium (1.8-2.4) mg/dL Total Bilirubin (0.2-1.0) mg/dL Direct Bilirubin (0.0-0.2) mg/dL Indirect Bilirubin AST (15-37) U/L ALT (14-59) U/L Alkaline Phosphatase (46-116) U/L Creatine Kinase (16-191) U/L Troponin I (0.000-0.056) ng/mL Total Protein (6.4-8.2) g/dL Albumin (3.4-5.0) g/dL Globulin Albumin/Globulin Ratio Urine Color (YELLOW) Urine Appearance (CLEAR) Urine pH (5.0-9.0) Ur Specific [place] (1.005-1.030) Urine Protein (NEGATIVE) Urine Glucose (UA) (NEGATIVE) Urine Ketones (NEGATIVE) Urine Occult Blood (NEGATIVE) Urine Nitrite (NEGATIVE) Urine Bilirubin (NEGATIVE) Urine Urobilinogen (0.2-1.0) mg/dL Ur Leukocyte Esterase (NEGATIVE) Urine RBC /HPF Urine WBC (0-5/HPF) /HPF Ur Epithelial Cells (NOT SEEN) /HPF Amorphous Sediment (NOT SEEN) /HPF Urine Bacteria (0-FEW/HPF) /HPF Urine Mucus (NOT SEEN) /LPF Ethyl Alcohol (0) mg/dL [place] Results Last 24 Hours: Microbiology 04/07/20 12:57 Anaerobic Blood Culture - Final Blood - Venous Med Orders - Current: Current Medications Acetaminophen (Tylenol) 650 mg PO Q4H PRN PRN Reason: Pain (Mild 1-3)/fever Last Admin: 04/07/20 18:12 Dose: 650 mg Documented by: Hydrocodone Bitart/Acetaminophen (Garner 325-10 Mg) 1 tab PO Q4H PRN PRN Reason: Pain (moderate 4-6) Last Admin: 04/07/20 23:35 Dose: 1 tab Documented by: Albuterol/Ipratropium (Duoneb 3.0-0.5 Mg/3 Ml) 3 ml NEB Q6HRRT [facility] Last Admin: 04/08/20 07:19 Dose: 3 ml Documented by: Albuterol/Ipratropium (Duoneb 3.0-0.5 Mg/3 Ml) 3 ml NEB Q2H PRN PRN Reason: sob Amlodipine Besylate (Norvasc) 5 mg PO DAILY [facility] Budesonide (Pulmicort) 0.5 mg NEB BIDRT [facility] Last Admin: 04/08/20 07:21 Dose: 0.5 mg Documented by: Docusate Sodium (Colace) 100 mg PO BID PRN PRN Reason: Constipation Heparin Sodium (Porcine) (Heparin Sodium) 5,000 units SUBCUT Q8HR [facility] Last Admin: 04/08/20 06:53 Dose: 5,000 units Documented by: Ceftriaxone Sodium 1 gm/ (Sodium Chloride) 50 mls @ 100 mls/hr IV Q24H [facility] Last Admin: 04/08/20 06:54 Dose: 100 mls/hr Documented by: Potassium Chloride/Sodium Chloride (Normal Saline With 20 Meq Kcl) 1,000 mls @ 125 mls/hr IV ASDIRECTED [facility] Last Admin: 04/08/20 09:50 Dose: 125 mls/hr Documented by: Metoprolol Succinate (Toprol Xl) 25 mg PO DAILY [facility] Morphine Sulfate (Morphine) 2 mg IVPUSH Q2H PRN PRN Reason: Pain (severe 7-10) Ondansetron HCl (Zofran) 4 mg IVPUSH Q6H PRN PRN Reason: Nausea/Vomiting Last Admin: 04/07/20 20:51 Dose: 4 mg Documented by: Potassium Chloride (Klor-Con 10) 20 meq PO BIDMEALS [facility] Temazepam (Restoril) 15 mg PO BEDTIME PRN PRN Reason: Sleep Discontinued Medications Sodium Chloride (Normal Saline) 1,000 mls @ 999 mls/hr IV .BOLUS ONE Stop: 04/07/20 13:26 Last Admin: 04/07/20 12:30 Dose: 999 mls/hr Documented by: Piperacillin Sod/Tazobactam (Sod 3.375 gm/ Sodium Chloride) 100 mls @ 200 mls/hr IV ONETIME ONE Stop: 04/07/20 14:09 Last Admin: 04/07/20 14:53 Dose: 200 mls/hr Documented by: Iopamidol (Isovue-300 (61%)) 100 ml IVPUSH ONETIME ONE Stop: 04/07/20 13:40 Last Admin: 04/07/20 14:11 Dose: 75 ml Documented by: Non-Formulary Medication (Potassium Chloride [Potassium Chloride]) 20 meq PO BID FELICITA Potassium Chloride (Klor-Con 10) 40 meq PO ONETIME ONE Stop: 04/08/20 10:31 Sodium Chloride (Saline Flush) 10 ml FLUSH ASDIRECTED PRN PRN Reason: Keep Vein Open Last Admin: 04/07/20 12:30 Dose: 10 ml Documented by: - Exam Quality Assessment: No: Supplemental Oxygen General: Alert, Oriented, Other (Morbidly obese) Neck: Supple Lungs: Clear to Auscultation, Normal Respiratory Effort Cardiovascular: Regular Rate, Regular Rhythm GI/Abdominal Exam: Normal Bowel Sounds, Soft, No Distention, Other (Morbidly obese). No: Rebound, Tender Back Exam: No: Vertebral Tenderness Extremities: No Pedal Edema, Other (Bilateral foot warm, no calf tenderness, soft muscles, no ischemic changes of skin or toes, pulses are difficult to palpate) Skin: Warm, Dry Neurological: Other (Numbness of the abdominal skin at umbilical level, bilaterally) Psy/Mental Status: Alert, Normal Affect, Normal Mood Sepsis Event Note - Evaluation Sepsis Screening Result: No Definite Risk - Focused Exam Vital Signs: Vital Signs Temp Pulse Resp BP Pulse Ox Pulse Ox 04/08/20 07:59 97.9 F 80 20 136/77 95 04/08/20 07:21 76 95 04/08/20 00:41 86 Date Exam was Performed: 04/08/20 Time Exam was Performed: 10:37 - Problem List & Annotations (1) Abdominal pain SNOMED Code(s): 77969074 Code(s): R10.9 - UNSPECIFIED ABDOMINAL PAIN Status: Acute Current Visit: No Qualifiers: Abdominal location: left lower quadrant Qualified Code(s): R10.32 - Left lower quadrant pain (2) Diverticulosis of sigmoid colon SNOMED Code(s): 999056607 Code(s): K57.30 - DVRTCLOS OF LG INT W/O PERFORATION OR ABSCESS W/O BLEEDING Status: Acute Current Visit: No (3) Fatty liver SNOMED Code(s): 907235409 Code(s): K76.0 - FATTY (CHANGE OF) LIVER, NOT ELSEWHERE CLASSIFIED Status: Acute Current Visit: No (4) Hypertension SNOMED Code(s): 27368371 Code(s): I10 - ESSENTIAL (PRIMARY) HYPERTENSION Status: Acute Current Visit: No (5) Sepsis SNOMED Code(s): 80666069 Code(s): A41.9 - SEPSIS, UNSPECIFIED ORGANISM Status: Acute Current Visit: No Qualifiers: Sepsis type: sepsis due to unspecified organism Sepsis acute organ dysfunction status: unspecified Qualified Code(s): A41.9 - Sepsis, unspecified organism (6) UTI (urinary tract infection) SNOMED Code(s): 10660182 Code(s): N39.0 - URINARY TRACT INFECTION, SITE NOT SPECIFIED Status: Acute Current Visit: No Qualifiers: Urinary tract infection type: acute cystitis Hematuria presence: with hematuria Qualified Code(s): N30.01 - Acute cystitis with hematuria - Problem List Review Problem List Initiated/Reviewed/Updated: Yes - My Orders Last 24 Hours: My Active Orders 04/07/20 15:45 Albuterol/Ipratropium [DuoNeb 3.0-0.5 MG/3 ML] 3 ml NEB Q2H PRN 04/07/20 15:46 RT Aerosol Therapy [RC] ASDIRECTED RT Aerosol Therapy [RC] ASDIRECTED 04/07/20 15:48 Oxygen Therapy [RC] PRN Up With Assistance [RC] ASDIRECTED VTE/DVT Education [RC] PER UNIT ROUTINE Vital Signs [RC] Q4H Acetaminophen [Tylenol] 650 mg PO Q4H PRN Acetaminophen/HYDROcodone [Garner 325-10 MG] 1 tab PO Q4H PRN Docusate Sodium [Colace] 100 mg PO BID PRN Morphine 2 mg IVPUSH Q2H PRN Ondansetron [Zofran] 4 mg IVPUSH Q6H PRN Resuscitation Status Routine 04/07/20 15:49 Antiembolic Devices [RC] PER UNIT ROUTINE Antiembolic Hose [OM.PC] Per Unit Routine 04/07/20 16:00 NS + KCl 20mEq/L [Normal Saline with 20 mEq KCl] 1,000 ml IV ASDIRECTED 04/07/20 Dinner Regular Diet [DIET] 04/07/20 18:00 Albuterol/Ipratropium [DuoNeb 3.0-0.5 MG/3 ML] 3 ml NEB Q6HRRT Budesonide [Pulmicort] 0.5 mg NEB BIDRT 04/07/20 21:00 Temazepam [Restoril] 15 mg PO BEDTIME PRN 04/07/20 22:00 Heparin Sodium 5,000 units SUBCUT Q8HR 04/08/20 06:00 cefTRIAXone [Rocephin] 1 gm Sodium Chloride 0.9% [Normal Saline] 50 ml IV Q24H 04/08/20 09:00 Metoprolol Succinate [Toprol XL] 25 mg PO DAILY amLODIPine [Norvasc] 5 mg PO DAILY 04/08/20 10:13 Abdomen Ltd [US] Routine 04/08/20 10:22 Lumbar Spine Comp w Cont [MR] Routine 04/08/20 18:00 Potassium Chloride [Klor-Con 10] 20 meq PO BIDMEALS 04/09/20 05:11 LACTIC ACID [CHEM] AM 04/09/20 05:15 BASIC METABOLIC PANEL,BMP [CHEM] AM - Plan Plan:: 54-year-old lady presented with left flank pain, on and off burning pain in bilateral feet. [place] chills. No chest pain, no shortness of breath. Numbness in the abdominal area. She was nauseous, she was not taking her potassium supplements. In the ER the patient was noted to have a abnormal urine analysis. CT of the abdomen showed hiatal hernia not causing obstruction. No diverticulitis, noted to have fatty liver Urinary tract infection with possible pyelonephritis The first urine analysis was quite abnormal, concerned that this was a c ontaminant. Repeat urine analysis and culture is pending blood culture is pending Was given a dose of Zosyn in the emergency room Started empirical treatment with ceftriaxone Possible Sepsis associated with the UTI The patient had elevated lactic acid and of normal UA on admission Concern was that this represents urinary tract infection, pyelonephritis, sepsis However the patient remained without fever, White count is coming down Lactic acid did not significantly improve but the patient does not appear to have severe sepsis clinically from infection source Will continue to hydrate the patient well Repeat lactic acid Treat infection Lactic acidosis Again this might relate to infection but the patient's clinical picture and the level of lactic acid is not matching Other causes of lactic acidosis might relate to muscles, CPK on the other hand is normal, does not appear to have ischemic extremities or toes Possible liver abnormalities The patient is morbidly obese, CT showed fatty liver, was suggesting to obtain ultrasound, we will do that now paresthesia of the abdominal skin, burning bilateral feet Will obtain MRI of the lumbar spine Hyponatremia Mild We will follow with hydration hypokalemia Continue potassium supplement Monitor electrolytes and replace as needed Hypertension Continue Norvasc, metoprolol COPD We will substitute Breo with nebulizers DVT prophylaxis with subcutaneous heparin
[2020-04-08] MEDS: amLODIPine 5 MG Tab PO SCH (10:42)
[2020-04-08] MEDS: Pantoprazole 40 MG Tab.CR PO SCH (12:22)
[2020-04-08] MEDS: Metoprolol Succinate 25 MG Tab.ER PO SCH (14:43)
[2020-04-08] MEDS: Ondansetron 4 MG/2 ML SDV IVPUSH PRN (18:02)
[2020-04-08] MEDS: Potassium Chloride 10 MEQ Tab.ER PO SCH (18:39)
[2020-04-09] MEDS: Albuterol/Ipratropium 3.0-0.5 MG/3 ML Neb Soln NEB SCH ×4 (00:52→18:08)
[2020-04-09] MEDS: NS + KCl 20mEq/L 1,000 ML IV SCH (01:48)
[2020-04-09] MEDS: cefTRIAXone 1 GM in Sodium Chloride 0.9% 50 ML IV SCH (05:42)
[2020-04-09] MEDS: Heparin Sodium 5,000 Units/ML Vial SUBCUT SCH ×3 (05:44→21:29)
[2020-04-09] MEDS: Pantoprazole 40 MG Tab.CR PO SCH (05:46)
[2020-04-09 07:04] LABS: ANION GAP 14.4 mEq/L (7-13); CHLORIDE,CL 100 mmol/L (98-107); SODIUM,NA 137 mmol/L (136-145)
[2020-04-09] MEDS: Budesonide 0.5 MG/2 ML Neb Susp NEB SCH ×2 (07:41→18:08)
[2020-04-09] MEDS: amLODIPine 5 MG Tab PO SCH (09:07)
[2020-04-09] MEDS: Metoprolol Succinate 25 MG Tab.ER PO SCH (09:08)
[2020-04-09] MEDS: Potassium Chloride 10 MEQ Tab.ER PO SCH ×2 (09:08→19:36)
--- NOTE | 2020-04-09 09:14 | MR ---
PROCEDURE INFORMATION: Exam: MR Lumbar Spine Without Contrast. Exam date and time: 04/09/2020 7:38 AM Age: 54 years old Clinical indication: Low back pain; Additional info: Numbness in feet, abdomen, back pain (left side) TECHNIQUE: Imaging protocol: Multiplanar magnetic resonance images of the lumbar spine without intravenous contrast. COMPARISON: No relevant prior studies available. FINDINGS: Vertebrae: There are a grade I anterolistheses at L3-L4 and L4-L5. A scoliotic curvature of the lumbar spine is convex to the left. A chronic 10% compression fracture involves the anterior superior endplate of T12. There is no acute fracture. Circumscribed marrow lesions, hyperintense on both T1 and T2 weighted sequences, are consistent with benign hemangiomas or focal marrow fat. Spinal cord: Normal signal. No cord compression. Multilevel findings: Degenerative disc disease is moderate at T10-T12 and mild at L2-S1. T12-L1: No significant disc bulge is present. No significant spinal canal or neural foraminal stenosis is present. L1-L2: No significant disc bulge is present. There is mild hypertrophy of the bilateral facets. No significant spinal canal or neural foraminal stenosis is present. L2-L3: 3 mm disc protrusions are present in each subarticular/foraminal region. There is mild hypertrophy of the bilateral facets. A mild amount of fluid is present in the facet joints bilaterally. No significant spinal canal stenosis is present. The bilateral L2-3 neural foramina are mildly narrowed. L3-L4: The disc is partially uncovered by a grade I anterolisthesis. A disc bulge measures 2 mm. There is moderate hypertrophy of the bilateral facets. A mild amount of fluid is present in the facet joints bilaterally. The ligamentum flavum is moderately hypertrophied. The AP canal diameter is 8.4 mm. Mild spinal canal stenosis is present at L3-4. The bilateral L3-4 neural foramina are mildly narrowed. L4-L5: The disc is partially uncovered by a grade I anterolisthesis. Disc protrusions in each foraminal/subarticular region measure 3 mm on the right and 2 mm on the left. There is severe hypertrophy of the bilateral facets. A mild amount of fluid involves the left facet. A moderate amount of fluid involves the right facet. The ligamentum flavum is moderately hypertrophied. The AP canal diameter is 8.2 mm. Mild spinal canal stenosis is present at L4-5. The transitioning right L5 nerve root appears impinged in the L4-5 subarticular recess (series [id number]/image [id number]). The bilateral L4-5 neural foramina are moderately narrowed. L5-S1: No significant disc bulge is present. No significant spinal canal or neural foraminal stenosis is present. There is severe hypertrophy of the bilateral facets. A mild amount of fluid involves the right facet. Soft tissues: Unremarkable. IMPRESSION: 1. Possible impingement of the transitioning right L5 nerve root in the right L4-5 subarticular recess. 2. Moderate neural foraminal stenosis bilaterally at L4-5. 3. Mild spinal canal stenosis at L3-4 and L4-5. 4. Multilevel facet joint degenerative change with multilevel facet joint effusions. 5. Levoscoliosis.
--- NOTE | 2020-04-09 10:01 | PCM.PN ---
- General Info Date of Service: 04/09/20 Admission Dx/Problem (Free Text): Admission Diagnosis/Problem Admission Diagnosis/Problem Pyelonephritis Subjective Update: Today patient reports that she continues to have numbness and tingling with [id number] sensation in bilateral lower extremities. Reports calf pain with ambulation. Denies chest pain, shortness of breath, fevers, chills, nausea, vomiting, diarrhea, constipation, dysuria, hematuria, or any new symptoms. States that she has a linear area on the anterior abdominal wall stretching from the umbilicus to the left and right where she has total sensory loss. Does not feel needlestick when she gets heparin shots. - Patient Data Vitals - Most Recent: Last Vital Signs Temp 97.9 F 04/09/20 07:58 Pulse 71 04/09/20 09:08 Resp 20 04/09/20 07:58 BP 124/76 04/09/20 09:08 Pulse Ox 95 04/09/20 07:58 Weight - Most Recent: 214 lb 12.8 oz I&O - Last 24 Hours: Intake & Output 04/08/20 04/09/20 04/09/20 22:59 06:59 14:59 Intake Total 1240 1018 1045 Output Total 320 Balance 1240 1018 725 Lab Results Last 24 Hours: Laboratory Results - last 24 hr 04/07/20 04/09/20 04/09/20 Range/Units 15:15 06:25 06:25 Sodium 137 (136-145) mmol/L Potassium 5.4 H D (3.5-5.1) mmol/L Chloride 100 (98-107) mmol/L Carbon Dioxide 28 (21-32) mmol/L Anion Gap 14.4 H (7-13) mEq/L BUN 7 (7-18) mg/dL Creatinine 0.66 (0.55-1.02) mg/dL Est Cr Clr Drug Dosing 75.28 mL/min Estimated GFR (MDRD) > 60 Glucose 71 L (74-99) mg/dL Lactic Acid 4.1 H* (0.4-2.0) mmol/L Calcium 7.8 L (8.5-10.1) mg/dL Urine Color Yellow (YELLOW) Urine Appearance Slightly cloudy (CLEAR) Urine pH 7.0 (5.0-9.0) Ur Specific [place] 1.010 (1.005-1.030) Urine Protein Negative (NEGATIVE) Urine Glucose (UA) Negative (NEGATIVE) Urine Ketones Negative (NEGATIVE) Urine Occult Blood Trace-intact H (NEGATIVE) Urine Nitrite Negative (NEGATIVE) Urine Bilirubin Negative (NEGATIVE) Urine Urobilinogen 1.0 (0.2-1.0) mg/dL Ur Leukocyte Esterase Negative (NEGATIVE) Urine RBC 5-10 H /HPF Urine WBC 0-5 (0-5/HPF) /HPF Ur Epithelial Cells Rare (NOT SEEN) /HPF Urine Bacteria Rare (0-FEW/HPF) /HPF Urine Mucus Rare (NOT SEEN) /LPF [facility] Results Last 24 Hours: Microbiology 04/07/20 15:15 Urine Culture - Final Urine, Quick Cath (In-Out) NO GROWTH AFTER 2 DAYS 04/07/20 13:46 Urine Culture - Final Urine, Voided Proteus Mirabilis Escherichia Coli 04/07/20 13:05 Aerobic Blood Culture - Preliminary Blood - Venous - Lab Draw NO GROWTH AFTER 1 DAY Anaerobic Blood Culture - Preliminary NO GROWTH AFTER 1 DAY 04/07/20 12:57 Aerobic Blood Culture - Preliminary Blood - Venous NO GROWTH AFTER 1 DAY Anaerobic Blood Culture - Final Med Orders - Current: Current Medications Acetaminophen (Tylenol) 650 mg PO Q4H PRN PRN Reason: Pain (Mild 1-3)/fever Last Admin: 04/07/20 18:12 Dose: 650 mg Documented by: Hydrocodone Bitart/Acetaminophen ([place] 325-10 Mg) 1 tab PO Q4H PRN PRN Reason: Pain (moderate 4-6) Last Admin: 04/08/20 22:37 Dose: 1 tab Documented by: Albuterol/Ipratropium (Duoneb 3.0-0.5 Mg/3 Ml) 3 ml NEB Q6HRRT [facility] Last Admin: 04/09/20 07:40 Dose: 3 ml Documented by: Albuterol/Ipratropium (Duoneb 3.0-0.5 Mg/3 Ml) 3 ml NEB Q2H PRN PRN Reason: sob Amlodipine Besylate (Norvasc) 5 mg PO DAILY [facility] Last Admin: 04/09/20 09:07 Dose: 5 mg Documented by: Budesonide (Pulmicort) 0.5 mg NEB BIDRT [facility] Last Admin: 04/09/20 07:41 Dose: 0.5 mg Documented by: Docusate Sodium (Colace) 100 mg PO BID PRN PRN Reason: Constipation Heparin Sodium (Porcine) (Heparin Sodium) 5,000 units SUBCUT Q8HR [facility] Last Admin: 04/09/20 05:44 Dose: 5,000 units Documented by: Ceftriaxone Sodium 1 gm/ (Sodium Chloride) 50 mls @ 100 mls/hr IV Q24H [facility] Last Infusion: 04/09/20 06:15 Dose: Infused Documented by: Potassium Chloride/Sodium Chloride (Normal Saline With 20 Meq Kcl) 1,000 mls @ 125 mls/hr IV ASDIRECTED [facility] Last Infusion: 04/09/20 09:09 Dose: 125 mls/hr Documented by: Metoprolol Succinate (Toprol Xl) 25 mg PO DAILY [facility] Last Admin: 04/09/20 09:08 Dose: 25 mg Documented by: Morphine Sulfate (Morphine) 2 mg IVPUSH Q2H PRN PRN Reason: Pain (severe 7-10) Ondansetron HCl (Zofran) 4 mg IVPUSH Q6H PRN PRN Reason: Nausea/Vomiting Last Admin: 04/08/20 18:02 Dose: 4 mg Documented by: Pantoprazole Sodium (Protonix) 40 mg PO ACBREAKFAST [facility] Last Admin: 04/09/20 05:46 Dose: 40 mg Documented by: Potassium Chloride (Klor-Con 10) 20 meq PO BIDMEALS [facility] Last Admin: 04/09/20 09:08 Dose: Not Given Documented by: Temazepam (Restoril) 15 mg PO BEDTIME PRN PRN Reason: Sleep Discontinued Medications Sodium Chloride (Normal Saline) 1,000 mls @ 999 mls/hr IV .BOLUS ONE Stop: 04/07/20 13:26 Last Admin: 04/07/20 12:30 Dose: 999 mls/hr Documented by: Piperacillin Sod/Tazobactam (Sod 3.375 gm/ Sodium Chloride) 100 mls @ 200 mls/hr IV ONETIME ONE Stop: 04/07/20 14:09 Last Admin: 04/07/20 14:53 Dose: 200 mls/hr Documented by: Iopamidol (Isovue-300 (61%)) 100 ml IVPUSH ONETIME ONE Stop: 04/07/20 13:40 Last Admin: 04/07/20 14:11 Dose: 75 ml Documented by: Non-Formulary Medication (Potassium Chloride [Potassium Chloride]) 20 meq PO BID [facility] Potassium Chloride (Klor-Con 10) 40 meq PO ONETIME ONE Stop: 04/08/20 10:31 Last Admin: 04/08/20 10:42 Dose: 40 meq Documented by: Sodium Chloride (Saline Flush) 10 ml FLUSH ASDIRECTED PRN PRN Reason: Keep Vein Open Last Admin: 04/07/20 12:30 Dose: 10 ml Documented by: - Exam General: Alert, Oriented, Cooperative, No Acute Distress HEENT: Pupils Equal, Pupils Reactive, Mucous Membr. Moist/[place] Neck: Supple Lungs: Clear to Auscultation, Normal Respiratory Effort Cardiovascular: Regular Rate, Regular Rhythm, No Murmurs GI/Abdominal Exam: Normal Bowel Sounds, Soft, Non-Tender, Other (a linear area on the anterior abdominal wall stretching from the umbilicus to the left and right where she has total sensory loss) Extremities: Normal Inspection, Non-Tender, No Pedal Edema Peripheral Pulses: 0: Posterior Tibial (L), Posterior Tibial (R), Dorsalis Pedis (L), Dorsalis Pedis (R), 2+: Radial (L), Radial (R) Skin: Warm, Dry, Intact Neurological: No New Focal Deficit Psy/Mental Status: Alert, Normal Affect, Normal Mood Sepsis Event Note - Evaluation Sepsis Screening Result: No Definite Risk - Focused Exam Vital Signs: Vital Signs Temp Pulse Pulse Resp BP BP Pulse Ox 04/09/20 09:08 71 124/76 04/09/20 09:07 124/76 04/09/20 07:58 97.9 F 71 20 124/76 95 04/09/20 07:42 70 04/09/20 00:52 73 04/09/20 00:48 97.2 F 73 20 107/45 L 98 Pulse Ox 04/09/20 09:08 04/09/20 09:07 04/09/20 07:58 04/09/20 07:42 92 L 04/09/20 00:52 98 04/09/20 00:48 Date Exam was Performed: 04/09/20 Time Exam was Performed: 09:52 - Problem List & Annotations (1) Paresthesia of both feet SNOMED Code(s): 791232419 Code(s): R20.2 - PARESTHESIA OF SKIN Status: Acute Current Visit: Yes (2) Diabetes type 2, controlled SNOMED Code(s): 87627666, 228988043 Code(s): E11.9 - TYPE 2 DIABETES MELLITUS WITHOUT COMPLICATIONS Status: Acute Current Visit: No (3) Pyelonephritis of left kidney SNOMED Code(s): 44778757 Code(s): N12 - TUBULO-INTERSTITIAL NEPHRITIS, NOT SPCF ACUTE OR CHRONIC Status: Acute Current Visit: No (4) Sepsis SNOMED Code(s): 60983582 Code(s): A41.9 - SEPSIS, UNSPECIFIED ORGANISM Status: Acute Current Visit: No Qualifiers: Sepsis type: sepsis due to unspecified organism Sepsis acute organ dysfunction status: unspecified Qualified Code(s): A41.9 - Sepsis, unspecified organism (5) UTI (urinary tract infection) SNOMED Code(s): 16292268 Code(s): N39.0 - URINARY TRACT INFECTION, SITE NOT SPECIFIED Status: Acute Current Visit: No Qualifiers: Urinary tract infection type: acute cystitis Hematuria presence: with hematuria Qualified Code(s): N30.01 - Acute cystitis with hematuria - Problem List Review Problem List Initiated/Reviewed/Updated: Yes - Plan Plan:: Patient is a 54-year-old female with medical history significant for hypertension, GERD, obesity, restless cholecystectomy, diverticulitis, and bowel resection who UTI and possible sepsis with lactic acidosis. Patient had hypokalemia due to not taking her potassium at home. #Possible UTI: Patient with initial UA that was positive for nitrites and leukocytes. However urine appears contaminated. Repeat UA was obtained after patient had received a first dose of antibiotics. Dysuria was negative for leukocytes and nitrates. Urine cultures came back positive for greater than 100,000 CFU per mL of Proteus mirabilis and less than 5000 colony-forming units of E. coli. Given CT findings, will continue to treat for UTI #Sepsis due to UTI: Patient with WBC count of 15.7 on presentation with associated respiratory rate in the 20s. UA positive and urine cultures positive With associated lactic acidosis Continue antibiotics Continue IV fluids Paresthesias of bilateral lower extremities: Differential includes radicular pain versus peripheral artery disease versus peripheral neuropathy. Patient has diabetes. Faint to nonpalpable DP and PT pulses of bilateral lower extremities MRI shows possible impingement of the transversing right L5 nerve root in the right L4-L5 subarticular recess. Also shows moderate neuroforaminal stenosis bilaterally at the L4-L5. Trial of gabapentin Once treatment of UTI is completed and lactic acidosis resolved, patient will be referred to neurosurgery outpatient #Lactic acidosis: Patient with persistently elevated lactic acid level despite IV fluids. Suspect due to liver disease We will continue IV fluids for 1 more day and if not improving, will stop trending lactic acid as patient does not appear septic. #Hyponatremia: Resolved. #Hypokalemia: Patient presented with low potassium Potassium this morning is 5.4, Stop IV fluids Check potassium level in the afternoon, if still elevated, will give temporizing measures and Kayexalate #Obesity: BMI of 39.3 Weight loss counseling provided #Hypertension: Continue Norvasc and metoprolol #COPD Continue nebulizers #History of type 2 diabetes Sliding scale insulin hypoglycemia protocol #DVT prophylaxis: Heparin #GI prophylaxis: Diabetic diet
[2020-04-09] MEDS: Gabapentin 100 MG Cap PO SCH ×3 (10:28→21:28)
--- NOTE | 2020-04-09 12:04 | US ---
EXAMINATION: Abdomen Ltd SEX: Female AGE: 54 years CLINICAL HISTORY: 54-year-old obese diabetic female smoker with elevated WBC and "fatty, inhomogeneously dense liver" reported on CT exam 07 April 2020. Mass lesions? Cholecystectomy. Interpretation: 1. Homogeneously echodense (FATTY) large, 20 cm long liver. *No discrete echogenic solid or hypoechoic cystic intrahepatic mass lesion. No abnormal dilatation of intra or extrahepatic biliary ducts (CBD measures 6 mm diameter and this patient with surgically absent gallbladder). 2. Right kidney and pancreas anatomically correct i.e. negative. 3. Trace fluid identified beneath the inferior margin right lobe liver. No other evidence of ascites.
[2020-04-09] MEDS: Ondansetron 4 MG/2 ML SDV IVPUSH PRN (14:42)
[2020-04-09] MEDS ORDERED: Sodium Chloride 0.9% 10 ML Syringe FLUSH PRN (15:03)
[2020-04-09] MEDS ORDERED: Ondansetron 4 MG Tab.DIS PO PRN (15:26)
[2020-04-09] MEDS ORDERED: Sodium Chloride 0.9% 500 ML IV SCH (19:45)
[2020-04-09] MEDS: Sodium Chloride 0.9% 1,000 ML IV SCH (20:10)
[2020-04-09] MEDS: Acetaminophen/HYDROcodone 325-10 MG Tab PO PRN (21:28)
[2020-04-10] MEDS: Albuterol/Ipratropium 3.0-0.5 MG/3 ML Neb Soln NEB SCH ×4 (00:49→17:29)
[2020-04-10] MEDS: Sodium Chloride 0.9% 1,000 ML IV SCH ×2 (05:40→16:07)
[2020-04-10] MEDS: cefTRIAXone 1 GM in Sodium Chloride 0.9% 50 ML IV SCH (05:42)
[2020-04-10] MEDS: Heparin Sodium 5,000 Units/ML Vial SUBCUT SCH ×3 (05:44→22:01)
[2020-04-10] MEDS: Pantoprazole 40 MG Tab.CR PO SCH (05:46)
[2020-04-10] MEDS: Budesonide 0.5 MG/2 ML Neb Susp NEB SCH ×2 (07:24→17:32)
[2020-04-10] MEDS: Potassium Chloride 10 MEQ Tab.ER PO SCH ×2 (08:32→17:29)
[2020-04-10] MEDS: Gabapentin 100 MG Cap PO SCH (08:32)
[2020-04-10] MEDS: Metoprolol Succinate 25 MG Tab.ER PO SCH (08:32)
[2020-04-10 08:33] LABS: ANION GAP 10.3 mEq/L (7-13); CHLORIDE,CL 99 mmol/L (98-107); SODIUM,NA 136 mmol/L (136-145)
[2020-04-10] MEDS: amLODIPine 5 MG Tab PO SCH (08:33)
[2020-04-10] MEDS: Acetaminophen/HYDROcodone 325-10 MG Tab PO PRN ×2 (08:49→14:03)
[2020-04-10] MEDS ORDERED: Lidocaine 5% 700 MG Patch TOP SCH (11:00)
--- NOTE | 2020-04-10 11:10 | PCM.PN ---
- General Info Date of Service: 04/10/20 Admission Dx/Problem (Free Text): Admission Diagnosis/Problem Admission Diagnosis/Problem Pyelonephritis Subjective Update: Today patient reports that she continues to have numbness and tingling with [id number] sensation in bilateral lower extremities. Improves a little bit with gabapentin but recurs right away. Denies chest pain, shortness of breath, fevers, chills, nausea, vomiting, diarrhea, constipation, dysuria, hematuria, or any new symptoms. - Patient Data Vitals - Most Recent: Last Vital Signs Temp 97.2 F 04/10/20 08:19 Pulse 84 04/10/20 08:32 Resp 20 04/10/20 08:19 BP 128/69 04/10/20 08:33 Pulse Ox 97 04/10/20 08:19 Weight - Most Recent: 214 lb 12.8 oz I&O - Last 24 Hours: Intake & Output 04/09/20 04/10/20 04/10/20 22:59 06:59 14:59 Intake Total 340 1991 240 Output Total 1400 Balance 340 591 240 Lab Results Last 24 Hours: Laboratory Results - last 24 hr 04/09/20 04/09/20 04/09/20 Range/Units 13:33 13:33 18:55 WBC (5.0-10.0) 10^3/uL RBC (4.2-5.4) 10^6/uL Hgb (12.0-16.0) g/dL Hct (37.0-47.0) % MCV (80-100) fL MCH (27.0-34.0) pg MCHC (33.0-35.0) g/dL Plt Count (150-450) 10^3/uL Sodium (136-145) mmol/L Potassium 5.3 H (3.5-5.1) mmol/L Chloride (98-107) mmol/L Carbon Dioxide (21-32) mmol/L Anion Gap (7-13) mEq/L BUN (7-18) mg/dL Creatinine (0.55-1.02) mg/dL Est Cr Clr Drug Dosing mL/min Estimated GFR (MDRD) BUN/Creatinine Ratio (No establ ref range) Glucose (74-99) mg/dL Lactic Acid 3.3 H* 3.8 H* (0.4-2.0) mmol/L Calcium (8.5-10.1) mg/dL Phosphorus (2.6-4.7) mg/dL Albumin (3.4-5.0) g/dL 04/09/20 04/10/20 04/10/20 Range/Units 18:55 01:06 08:05 WBC (5.0-10.0) 10^3/uL RBC (4.2-5.4) 10^6/uL Hgb (12.0-16.0) g/dL Hct (37.0-47.0) % MCV (80-100) fL MCH (27.0-34.0) pg MCHC (33.0-35.0) g/dL Plt Count (150-450) 10^3/uL Sodium 136 (136-145) mmol/L Potassium 4.9 4.3 (3.5-5.1) mmol/L Chloride 99 (98-107) mmol/L Carbon Dioxide 31 (21-32) mmol/L Anion Gap 10.3 (7-13) mEq/L BUN 5 L (7-18) mg/dL Creatinine 0.56 (0.55-1.02) mg/dL Est Cr Clr Drug Dosing 88.72 mL/min Estimated GFR (MDRD) > 60 BUN/Creatinine Ratio 8.9 (No establ ref range) Glucose 83 (74-99) mg/dL Lactic Acid 3.3 H* (0.4-2.0) mmol/L Calcium 8.1 L (8.5-10.1) mg/dL Phosphorus 2.6 (2.6-4.7) mg/dL Albumin 2.3 L (3.4-5.0) g/dL 04/10/20 04/10/20 Range/Units 08:05 08:05 WBC 11.2 H (5.0-10.0) 10^3/uL RBC 2.62 L (4.2-5.4) 10^6/uL Hgb 10.2 L (12.0-16.0) g/dL Hct 30.6 L (37.0-47.0) % MCV 116.8 H (80-100) fL MCH 38.9 H (27.0-34.0) pg MCHC 33.3 (33.0-35.0) g/dL Plt Count 269 (150-450) 10^3/uL Sodium (136-145) mmol/L Potassium (3.5-5.1) mmol/L Chloride (98-107) mmol/L Carbon Dioxide (21-32) mmol/L Anion Gap (7-13) mEq/L BUN (7-18) mg/dL Creatinine (0.55-1.02) mg/dL Est Cr Clr Drug Dosing mL/min Estimated GFR (MDRD) BUN/Creatinine Ratio (No establ ref range) Glucose (74-99) mg/dL Lactic Acid 2.1 H* (0.4-2.0) mmol/L Calcium (8.5-10.1) mg/dL Phosphorus (2.6-4.7) mg/dL Albumin (3.4-5.0) g/dL [facility] Results Last 24 Hours: Microbiology 04/07/20 13:05 Aerobic Blood Culture - Preliminary Blood - Venous - Lab Draw NO GROWTH AFTER 2 DAYS Anaerobic Blood Culture - Preliminary NO GROWTH AFTER 2 DAYS 04/07/20 12:57 Aerobic Blood Culture - Preliminary Blood - Venous NO GROWTH AFTER 2 DAYS Anaerobic Blood Culture - Final 04/07/20 15:15 Urine Culture - Final Urine, Quick Cath (In-Out) NO GROWTH AFTER 2 DAYS 04/07/20 13:46 Urine Culture - Final Urine, Voided Proteus Mirabilis Escherichia Coli Med Orders - Current: Current Medications Acetaminophen (Tylenol) 650 mg PO Q4H PRN PRN Reason: Pain (Mild 1-3)/fever Last Admin: 04/07/20 18:12 Dose: 650 mg Documented by: Hydrocodone Bitart/Acetaminophen ([place] 325-10 Mg) 1 tab PO Q4H PRN PRN Reason: Pain (moderate 4-6) Last Admin: 04/10/20 08:49 Dose: 1 tab Documented by: Albuterol/Ipratropium (Duoneb 3.0-0.5 Mg/3 Ml) 3 ml NEB Q6HRRT [facility] Last Admin: 04/10/20 07:24 Dose: 3 ml Documented by: Albuterol/Ipratropium (Duoneb 3.0-0.5 Mg/3 Ml) 3 ml NEB Q2H PRN PRN Reason: sob Amlodipine Besylate (Norvasc) 5 mg PO DAILY [facility] Last Admin: 04/10/20 08:33 Dose: 5 mg Documented by: Budesonide (Pulmicort) 0.5 mg NEB BIDRT [facility] Last Admin: 04/10/20 07:24 Dose: 0.5 mg Documented by: Docusate Sodium (Colace) 100 mg PO BID PRN PRN Reason: Constipation Gabapentin (Neurontin) 300 mg PO TID [facility] Heparin Sodium (Porcine) (Heparin Sodium) 5,000 units SUBCUT Q8HR [facility] Last Admin: 04/10/20 05:44 Dose: 5,000 units Documented by: Sodium Chloride (Normal Saline) 1,000 mls @ 100 mls/hr IV ASDIRECTED [facility] Last Admin: 04/10/20 05:40 Dose: 100 mls/hr Documented by: Lidocaine (Lidoderm 5%) 700 mg TOP Q24H [facility] Metoprolol Succinate (Toprol Xl) 25 mg PO DAILY [facility] Last Admin: 04/10/20 08:32 Dose: 25 mg Documented by: Morphine Sulfate (Morphine) 2 mg IVPUSH Q2H PRN PRN Reason: Pain (severe 7-10) Ondansetron HCl (Zofran) 4 mg IVPUSH Q6H PRN PRN Reason: Nausea/Vomiting Last Admin: 04/09/20 14:42 Dose: 4 mg Documented by: Ondansetron HCl (Zofran Odt) 4 mg PO Q6H PRN PRN Reason: Nausea/Vomiting Pantoprazole Sodium (Protonix) 40 mg PO ACBREAKFAST [facility] Last Admin: 04/10/20 05:46 Dose: 40 mg Documented by: Potassium Chloride (Klor-Con 10) 20 meq PO BIDMEALS [facility] Last Admin: 04/10/20 08:32 Dose: 20 meq Documented by: Sodium Chloride (Saline Flush) 10 ml FLUSH DAILY PRN PRN Reason: IV Use Last Admin: 04/09/20 20:05 Dose: 10 ml Documented by: Temazepam (Restoril) 15 mg PO BEDTIME PRN PRN Reason: Sleep Discontinued Medications Gabapentin (Neurontin) 100 mg PO TID [facility] Last Admin: 04/10/20 08:32 Dose: 100 mg Documented by: Sodium Chloride (Normal Saline) 1,000 mls @ 999 mls/hr IV .BOLUS ONE Stop: 04/07/20 13:26 Last Admin: 04/07/20 12:30 Dose: 999 mls/hr Documented by: Piperacillin Sod/Tazobactam (Sod 3.375 gm/ Sodium Chloride) 100 mls @ 200 mls/hr IV ONETIME ONE Stop: 04/07/20 14:09 Last Admin: 04/07/20 14:53 Dose: 200 mls/hr Documented by: Ceftriaxone Sodium 1 gm/ (Sodium Chloride) 50 mls @ 100 mls/hr IV Q24H [facility] Last Infusion: 04/10/20 06:15 Dose: Infused Documented by: Potassium Chloride/Sodium Chloride (Normal Saline With 20 Meq Kcl) 1,000 mls @ 125 mls/hr IV ASDIRECTED [facility] Last Infusion: 04/09/20 09:09 Dose: 125 mls/hr Documented by: Sodium Chloride (Normal Saline) 500 mls @ 100 mls/hr IV ASDIRECTED [facility] Iopamidol (Isovue-300 (61%)) 100 ml IVPUSH ONETIME ONE Stop: 04/07/20 13:40 Last Admin: 04/07/20 14:11 Dose: 75 ml Documented by: Non-Formulary Medication (Potassium Chloride [Potassium Chloride]) 20 meq PO BID [facility] Last Admin: 04/09/20 16:25 Dose: Not Given Documented by: Potassium Chloride (Klor-Con 10) 40 meq PO ONETIME ONE Stop: 04/08/20 10:31 Last Admin: 04/08/20 10:42 Dose: 40 meq Documented by: Sodium Chloride (Saline Flush) 10 ml FLUSH ASDIRECTED PRN PRN Reason: Keep Vein Open Last Admin: 04/07/20 12:30 Dose: 10 ml Documented by: - Exam General: Alert, Oriented, Cooperative, No Acute Distress HEENT: Pupils Equal, EOMI Neck: Supple Lungs: Clear to Auscultation, Normal Respiratory Effort Cardiovascular: Regular Rate, Regular Rhythm, No Murmurs GI/Abdominal Exam: Normal Bowel Sounds, Soft, Non-Tender, No Distention Extremities: Normal Inspection, Normal Range of Motion, Non-Tender Peripheral Pulses: 2+: Radial (L), Radial (R), Dorsalis Pedis (L), Dorsalis Pedis (R) Skin: Warm, Dry, Intact Wound/Incisions: Healing Well Neurological: No New Focal Deficit Psy/Mental Status: Alert, Normal Affect, Normal Mood Sepsis Event Note - Evaluation Sepsis Screening Result: No Definite Risk - Focused Exam Vital Signs: Vital Signs Temp Pulse Pulse Resp BP BP Pulse Ox 04/10/20 08:33 128/69 04/10/20 08:32 84 128/69 04/10/20 08:19 97.2 F 84 20 128/69 97 04/10/20 07:24 91 04/10/20 00:49 80 04/10/20 00:40 97.9 F 77 20 115/63 94 L Pulse Ox 04/10/20 08:33 04/10/20 08:32 04/10/20 08:19 04/10/20 07:24 94 L 04/10/20 00:49 94 L 04/10/20 00:40 Date Exam was Performed: 04/10/20 Time Exam was Performed: 11:02 - Problem List & Annotations (1) Paresthesia of both feet SNOMED Code(s): 195225898 Code(s): R20.2 - PARESTHESIA OF SKIN Status: Acute Current Visit: Yes (2) Diabetes type 2, controlled SNOMED Code(s): 32036472, 553970441 Code(s): E11.9 - TYPE 2 DIABETES MELLITUS WITHOUT COMPLICATIONS Status: Acute Current Visit: No (3) Pyelonephritis of left kidney SNOMED Code(s): 19567000 Code(s): N12 - TUBULO-INTERSTITIAL NEPHRITIS, NOT SPCF ACUTE OR CHRONIC Status: Acute Current Visit: No (4) Sepsis SNOMED Code(s): 63376166 Code(s): A41.9 - SEPSIS, UNSPECIFIED ORGANISM Status: Acute Current Visit: No Qualifiers: Sepsis type: sepsis due to unspecified organism Sepsis acute organ dysfunction status: unspecified Qualified Code(s): A41.9 - Sepsis, unspecified organism (5) UTI (urinary tract infection) SNOMED Code(s): 48012943 Code(s): N39.0 - URINARY TRACT INFECTION, SITE NOT SPECIFIED Status: Acute Current Visit: No Qualifiers: Urinary tract infection type: acute cystitis Hematuria presence: with hematuria Qualified Code(s): N30.01 - Acute cystitis with hematuria - Problem List Review Problem List Initiated/Reviewed/Updated: Yes - My Orders Last 24 Hours: My Active Orders 04/09/20 10:08 PT Evaluation and Treatment [CONS] Routine 04/09/20 15:03 Sodium Chloride 0.9% [Saline Flush] 10 ml FLUSH DAILY PRN 04/09/20 15:26 Ondansetron [Zofran ODT] 4 mg PO Q6H PRN 04/09/20 20:15 Sodium Chloride 0.9% [Normal Saline] 1,000 ml IV ASDIRECTED 04/10/20 11:00 Lidocaine 5% [Lidoderm 5%] 700 mg TOP Q24H 04/10/20 13:00 LACTIC ACID [CHEM] Routine 04/10/20 14:00 Gabapentin [Neurontin] 300 mg PO TID - Plan Plan:: Patient is a 54-year-old female with medical history significant for hypertension, GERD, obesity, restless cholecystectomy, diverticulitis, and bowel resection who UTI and possible sepsis with lactic acidosis. Patient had hypokalemia due to not taking her potassium at home. #UTI/Pyelonephritis: Patient with initial UA that was positive for nitrites and leukocytes. However urine appears contaminated. Repeat UA was obtained after patient had received a first dose of antibiotics. Dysuria was negative for leukocytes and nitrates. Urine cultures came back positive for greater than 100,000 CFU per mL of Proteus mirabilis and less than 5000 colony-forming units of E. coli. #Sepsis due to UTI: Patient with WBC count of 15.7 on presentation with associated respiratory rate in the 20s. UA positive and urine cultures positive With associated lactic acidosis Continue antibiotics Continue IV fluids #Paresthesias of bilateral lower extremities: Differential includes radicular pain versus peripheral artery disease versus peripheral neuropathy. Patient has diabetes. Faint to nonpalpable DP and PT pulses of bilateral lower extremities MRI shows possible impingement of the traversing right L5 nerve root in the ri ght L4-L5 subarticular recess. Also shows moderate neuroforaminal stenosis bilaterally at the L4-L5. Has some improvement with gabapentin. Increase dose to 300 mg TID Start lidocaine patch Once treatment of UTI is completed and lactic acidosis resolved, patient will be referred to neurosurgery outpatient #Lactic acidosis: ImprovingPatient with persistently elevated lactic acid level despite IV fluids. Suspect due to liver disease Trend lactic acid levels. #Hyponatremia: Resolved. #Hypokalemia: Resolved. Patient presented with low potassium Potassium this morning is 5.4, likely due to IV K in NS. Monitor Resume home KCl tomorrow. #Obesity: BMI of 39.3 Weight loss counseling provided #Hypertension: Continue Norvasc and metoprolol #COPD Continue nebulizers #History of type 2 diabetes Sliding scale insulin hypoglycemia protocol #DVT prophylaxis: Heparin #GI prophylaxis: Diabetic diet
[2020-04-10] MEDS: Gabapentin 300 MG Cap PO SCH ×2 (14:04→22:01)
[2020-04-11] MEDS: Albuterol/Ipratropium 3.0-0.5 MG/3 ML Neb Soln NEB SCH ×2 (02:18→07:11)
[2020-04-11] MEDS: Sodium Chloride 0.9% 1,000 ML IV SCH (02:21)
[2020-04-11] MEDS: Pantoprazole 40 MG Tab.CR PO SCH (05:41)
[2020-04-11] MEDS: Heparin Sodium 5,000 Units/ML Vial SUBCUT SCH (05:41)
[2020-04-11 05:55] LABS: ANION GAP 10.9 mEq/L (7-13); CHLORIDE,CL 100 mmol/L (98-107); SODIUM,NA 135 mmol/L (136-145)
[2020-04-11] MEDS: Budesonide 0.5 MG/2 ML Neb Susp NEB SCH (07:11)
[2020-04-11 07:13] VITALS: BP 128/68
[2020-04-11] MEDS: amLODIPine 5 MG Tab PO SCH (08:23)
[2020-04-11] MEDS: Gabapentin 300 MG Cap PO SCH (08:23)
[2020-04-11] MEDS: Potassium Chloride 10 MEQ Tab.ER PO SCH (08:23)
[2020-04-11] MEDS: Metoprolol Succinate 25 MG Tab.ER PO SCH (08:23)
[2020-04-11 08:25] VITALS: PULSE 85
--- NOTE | 2020-04-11 10:40 | PCM.DCSUM1 ---
Discharge Summary - Hospital Course Free Text/Narrative:: Patient is a 54-year-old female with medical history significant for hypertension, GERD, obesity, restless cholecystectomy, diverticulitis, and bowel resection who UTI and possible sepsis with lactic acidosis. Patient had hypokalemia due to not taking her potassium at home. Initial UA that was positive for nitrites and leukocytes. However urine appears contaminated. Repeat UA was obtained after patient had received a first dose of antibiotics. Dysuria was negative for leukocytes and nitrates. Urine cultures came back positive for greater than 100,000 CFU per mL of Proteus mirabilis and less than 5000 colony-forming units of E. coli. Had WBC count of 15.7 on presentation with associated respiratory rate in the 20s. Lactic acid was elevated. Likely due to liver disease, lactic acid took a while to come down to 2.1. Was mostly in the 3s. #Paresthesias of bilateral lower extremities: MRI shows possible impingement of the traversing right L5 nerve root in the right L4-L5 subarticular recess. Also shows moderate neuroforaminal stenosis bilaterally at the L4-L5. Improved with gabapentin 300 mg TID and lidocaine patch She had hyponatremia on presentation which resolved with IVF. Hypokalemia resolved with IV replacement. Went up to 5.4. Slowly came down without medications. She is to follow u p with PCP and neurosurgery. She was counseled about weight loss through dietary modifications and increased physical activities. She was also counseled about the importance of alcohol and tobacco cessation. PCP to monitor Renal function panel for electrolyte imbalances. HPI Initial Comments: 54-year-old lady with history of hypertension, diverticulitis, partial bowel resection presented with left flank pain, on and off numbness in bilateral feet. [place] chills. No chest pain, no shortness of breath She was nauseous, she was not taking her potassium supplements. In the ER the patient was noted to have a abnormal urine analysis. CT of the abdomen showed hiatal hernia not causing obstruction. No diverticulitis, noted to have fatty liver Diagnosis: Stroke: No - Discharge Data Discharge Date: 04/11/20 Discharge Disposition: Home, Self-Care 01 Condition: Good - Referral to Home Health Primary Care Physician: Daphne Godinez NP - Discharge Diagnosis/Problem(s) (1) Paresthesia of both feet SNOMED Code(s): 283938515 ICD Code: R20.2 - PARESTHESIA OF SKIN Status: Acute Current Visit: Yes (2) Diabetes type 2, controlled SNOMED Code(s): 14190701, 661200429 ICD Code: E11.9 - TYPE 2 DIABETES MELLITUS WITHOUT COMPLICATIONS Status: Acute Current Visit: No (3) Pyelonephritis of left kidney SNOMED Code(s): 39518227 ICD Code: N12 - TUBULO-INTERSTITIAL NEPHRITIS, NOT SPCF ACUTE OR CHRONIC Status: Acute Current Visit: No (4) Sepsis SNOMED Code(s): 16092108 ICD Code: A41.9 - SEPSIS, UNSPECIFIED ORGANISM Status: Acute Current Visit: No Qualifiers: Sepsis type: sepsis due to unspecified organism Sepsis acute organ dysfunction status: unspecified Qualified Code(s): A41.9 - Sepsis, unspecified organism (5) UTI (urinary tract infection) SNOMED Code(s): 95433801 ICD Code: N39.0 - URINARY TRACT INFECTION, SITE NOT SPECIFIED Status: Acute Current Visit: No Qualifiers: Urinary tract infection type: acute cystitis Hematuria presence: with hemat uria Qualified Code(s): N30.01 - Acute cystitis with hematuria (6) Radicular pain of lumbosacral region SNOMED Code(s): 778480956 ICD Code: M54.17 - RADICULOPATHY, LUMBOSACRAL REGION Status: Acute Current Visit: Yes (7) Peripheral neuropathy SNOMED Code(s): 238268523 ICD Code: G62.9 - POLYNEUROPATHY, UNSPECIFIED Status: Acute Current V isit: Yes - Patient Summary/Data Consults: Consultations 04/09/20 10:08 PT Evaluation and Treatment [CONS] Routine - Discharge Plan *PRESCRIPTION DRUG MONITORING PROGRAM REVIEWED*: Not Applicable *COPY OF PRESCRIPTION DRUG MONITORING REPORT IN PATIENT ANA: Not Applicable Prescriptions/Med Rec: Lidocaine 5% [Lidoderm 5%] 700 mg TOP Q24H #5 patch Gabapentin [Neurontin] 300 mg PO TID #12 cap Cefpodoxime [Vantin] 200 mg PO BID #12 tab Home Medications: Home Meds Esomeprazole Magnesium [Nexium 24Hr] 20 mg PO DAILY 07/20/18 [History] Metoprolol Tartrate 25 mg PO DAILY 06/18/19 [History] amLODIPine Besylate [Amlodipine Besylate] 5 mg PO DAILY 06/18/19 [History] Albuterol [Proventil HFA] 1 puff PO ASDIRECTED 04/07/20 [History] Potassium Citrate [Potassium Citrate ER] 20 meq PO BID 04/07/20 [History] Fluticasone Propion/Salmeterol [Fluticasone-Salmeterol 250-50] 1 puff INH BID 04/08/20 [History] Cefpodoxime [Vantin] 200 mg PO BID #12 tab 04/11/20 [Rx] Gabapentin [Neurontin] 300 mg PO TID #12 cap 04/11/20 [Rx] Lidocaine 5% [Lidoderm 5%] 700 mg TOP Q24H #5 patch 04/11/20 [Rx] Patient Handouts: Pyelonephritis, Adult, [id number] Referrals: Daphne Godinez, INTERCEPTOR OPERATOR [Primary Care Provider] - - Discharge Summary/Plan Comment DC Time >30 min.: Yes - General Info Date of Service: 04/11/20 Admission Dx/Problem (Free Text: Admission Diagnosis/Problem Admission Diagnosis/Problem Pyelonephritis Subjective Update: Today patient reports that she continues to have numbness and tingling with [id number] sensation in bilateral lower extremities but improved significantly with gabapentin and lidocaine patch. Denies chest pain, shortness of breath, fevers, chills, nausea, vomiting, diarrhea, constipation, dysuria, hematuria, or any new symptoms. - Patient Data Vitals - Most Recent: Last Vital Signs Temp 98.9 F 04/11/20 07:11 Pulse 85 04/11/20 08:23 Resp 18 04/11/20 07:11 BP 128/68 04/11/20 08:23 Pulse Ox 94 L 04/11/20 07:11 Weight - Most Recent: 214 lb 12.8 oz I&O - Last 24 hours: Intake & Output 04/10/20 04/11/20 04/11/20 22:59 06:59 14:59 Intake Total 1777 1500 1440 Output Total 300 1800 500 Balance 1477 -300 940 Lab Results - Last 24 hrs: Laboratory Results - last 24 hr 04/10/20 04/11/20 04/11/20 Range/Units 14:55 05:30 05:30 WBC 12.6 H (5.0-10.0) 10^3/uL RBC 2.59 L (4.2-5.4) 10^6/uL Hgb 10.0 L (12.0-16.0) g/dL Hct 30.3 L (37.0-47.0) % MCV 117.0 H (80-100) fL MCH 38.6 H (27.0-34.0) pg MCHC 33.0 (33.0-35.0) g/dL Plt Count 257 (150-450) 10^3/uL Sodium 135 L (136-145) mmol/L Potassium 4.9 (3.5-5.1) mmol/L Chloride 100 (98-107) mmol/L Carbon Dioxide 29 (21-32) mmol/L Anion Gap 10.9 (7-13) mEq/L BUN 6 L (7-18) mg/dL Creatinine 0.64 (0.55-1.02) mg/dL Est Cr Clr Drug Dosing 77.63 mL/min Estimated GFR (MDRD) > 60 Glucose 79 (74-99) mg/dL Lactic Acid 3.2 H* (0.4-2.0) mmol/L Calcium 8.1 L (8.5-10.1) mg/dL [id number] Results - Last 24 hrs: Microbiology 04/07/20 13:05 Aerobic Blood Culture - Preliminary Blood - Venous - Lab Draw NO GROWTH AFTER 3 DAYS Anaerobic Blood Culture - Preliminary NO GROWTH AFTER 3 DAYS 04/07/20 12:57 Aerobic Blood Culture - Preliminary Blood - Venous NO GROWTH AFTER 3 DAYS Anaerobic Blood Culture - Final Med Orders - Current: Current Medications Acetaminophen (Tylenol) 650 mg PO Q4H PRN PRN Reason: Pain (Mild 1-3)/fever Last Admin: 04/07/20 18:12 Dose: 650 mg Documented by: Hydrocodone Bitart/Acetaminophen ([place] 325-10 Mg) 1 tab PO Q4H PRN PRN Reason: Pain (moderate 4-6) Last Admin: 04/10/20 14:03 Dose: 1 tab Documented by: Albuterol/Ipratropium (Duoneb 3.0-0.5 Mg/3 Ml) 3 ml NEB Q6HRRT FELICITA Last Admin: 04/11/20 07:11 Dose: 3 ml Documented by: Albuterol/Ipratropium (Duoneb 3.0-0.5 Mg/3 Ml) 3 ml NEB Q2H PRN PRN Reason: sob Amlodipine Besylate (Norvasc) 5 mg PO DAILY [facility] Last Admin: 04/11/20 08:23 Dose: 5 mg Documented by: Budesonide (Pulmicort) 0.5 mg NEB BIDRT [facility] Last Admin: 04/11/20 07:11 Dose: 0.5 mg Documented by: Docusate Sodium (Colace) 100 mg PO BID PRN PRN Reason: Constipation Gabapentin (Neurontin) 300 mg PO TID [facility] Last Admin: 04/11/20 08:23 Dose: 300 mg Documented by: Heparin Sodium (Porcine) (Heparin Sodium) 5,000 units SUBCUT Q8HR [facility] Last Admin: 04/11/20 05:41 Dose: 5,000 units Documented by: Sodium Chloride (Normal Saline) 1,000 mls @ 100 mls/hr IV ASDIRECTED [facility] Last Admin: 04/11/20 02:21 Dose: 100 mls/hr Documented by: Lidocaine (Lidoderm 5%) 700 mg TOP Q24H [facility] Last Admin: 04/10/20 11:17 Dose: 700 mg Documented by: Metoprolol Succinate (Toprol Xl) 25 mg PO DAILY [facility] Last Admin: 04/11/20 08:23 Dose: 25 mg Documented by: Miscellaneous Information (Remove Patch) 1 ea TRDERM Q24H [facility] Last Admin: 04/10/20 22:02 Dose: Not Given Documented by: Morphine Sulfate (Morphine) 2 mg IVPUSH Q2H PRN PRN Reason: Pain (severe 7-10) Ondansetron HCl (Zofran) 4 mg IVPUSH Q6H PRN PRN Reason: Nausea/Vomiting Last Admin: 04/09/20 14:42 Dose: 4 mg Documented by: Ondansetron HCl (Zofran Odt) 4 mg PO Q6H PRN PRN Reason: Nausea/Vomiting Pantoprazole Sodium (Protonix) 40 mg PO ACBREAKFAST [facility] Last Admin: 04/11/20 05:41 Dose: 40 mg Documented by: Potassium Chloride (Klor-Con 10) 20 meq PO BIDMEALS [facility] Last Admin: 04/11/20 08:23 Dose: 20 meq Documented by: Sodium Chloride (Saline Flush) 10 ml FLUSH DAILY PRN PRN Reason: IV Use Last Admin: 04/09/20 20:05 Dose: 10 ml Documented by: Temazepam (Restoril) 15 mg PO BEDTIME PRN PRN Reason: Sleep Discontinued Medications Gabapentin (Neurontin) 100 mg PO TID [facility] Last Admin: 04/10/20 08:32 Dose: 100 mg Documented by: Sodium Chloride (Normal Saline) 1,000 mls @ 999 mls/hr IV .BOLUS ONE Stop: 04/07/20 13:26 Last Admin: 04/07/20 12:30 Dose: 999 mls/hr Documented by: Piperacillin Sod/Tazobactam (Sod 3.375 gm/ Sodium Chloride) 100 mls @ 200 mls/hr IV ONETIME ONE Stop: 04/07/20 14:09 Last Admin: 04/07/20 14:53 Dose: 200 mls/hr Documented by: Ceftriaxone Sodium 1 gm/ (Sodium Chloride) 50 mls @ 100 mls/hr IV Q24H [facility] Last Infusion: 04/10/20 06:15 Dose: Infused Documented by: Potassium Chloride/Sodium Chloride (Normal Saline With 20 Meq Kcl) 1,000 mls @ 125 mls/hr IV ASDIRECTED [facility] Last Infusion: 04/09/20 09:09 Dose: 125 mls/hr Documented by: Sodium Chloride (Normal Saline) 500 mls @ 100 mls/hr IV ASDIRECTED [facility] Iopamidol (Isovue-300 (61%)) 100 ml IVPUSH ONETIME ONE Stop: 04/07/20 13:40 Last Admin: 04/07/20 14:11 Dose: 75 ml Documented by: Non-Formulary Medication (Potassium Chloride [Potassium Chloride]) 20 meq PO BID [facility] Last Admin: 04/09/20 16:25 Dose: Not Given Documented by: Potassium Chloride (Klor-Con 10) 40 meq PO ONETIME ONE Stop: 04/08/20 10:31 Last Admin: 04/08/20 10:42 Dose: 40 meq Documented by: Sodium Chloride (Saline Flush) 10 ml FLUSH ASDIRECTED PRN PRN Reason: Keep Vein Open Last Admin: 04/07/20 12:30 Dose: 10 ml Documented by: - Exam General: Reports: Alert, Oriented, Cooperative, No Acute Distress HEENT: Reports: Pupils Equal, Pupils Reactive, Mucous Membr. Moist/Olivia Lopez De Gutierrez Neck: Reports: Supple Lungs: Reports: Clear to Auscultation, Normal Respiratory Effort Cardiovascular: Reports: Regular Rate, Regular Rhythm, No Murmurs GI/Abdominal Exam: Normal Bowel Sounds, Soft, Non-Tender, No Distention Extremities: Normal Inspection, Non-Tender, No Pedal Edema Skin: Reports: Warm, Dry Neurological: Reports: No New Focal Deficit Psy/Mental Status: Reports: Alert, Normal Affect, Normal Mood
== END 2020-04-11 11:40 | disposition home or self-care (01) | DRG 872 ==
LOC: DL.ED 12:08 → DL.MS 14:50 → DL.ED 14:52 → DL.MS 14:57 → UNDOADMIN 14:57
PROVIDERS: ADMIT Internal Medicine; ATTEND Internal Medicine
DX: A41.51 Sepsis due to Escherichia coli [E. coli] (principal); N10 Acute pyelonephritis; N30.01 Acute cystitis with hematuria; E87.1 Hypo-osmolality and hyponatremia; A41.59 Other Gram-negative sepsis; E87.6 Hypokalemia; E11.42 Type 2 diabetes mellitus with diabetic polyneuropathy; M48.061 Spinal stenosis, lumbar region without neurogenic claudication; M54.17 Radiculopathy, lumbosacral region; K44.9 Diaphragmatic hernia without obstruction or gangrene; J44.9 Chronic obstructive pulmonary disease, unspecified; I10 Essential (primary) hypertension; K21.9 Gastro-esophageal reflux disease without esophagitis; E66.9 Obesity, unspecified; F17.200 Nicotine dependence, unspecified, uncomplicated; K76.0 Fatty (change of) liver, not elsewhere classified; Z88.5 Allergy status to narcotic agent; Z79.899 Other long term (current) drug therapy; Z98.49 Cataract extraction status, unspecified eye; Z90.49 Acquired absence of other specified parts of digestive tract; Z68.39 Body mass index [BMI] 39.0-39.9, adult
CPT/HCPCS: 36415; 72148; 74177; 76705; 80048; 80053; 80069; 80076; 80307; 81001; 82550; 83605; 83735; 84132; 84484; 85025; 85027; 87040; 87086; 87088; 87186; 93005; 94640; 97162-GP; 99221; 99232; 99239; 99284; 99285-25; A9270-GY; J0696; J1644; J2405; J2543; J3480; J7030; J7050; J7620-GY; Q9967

== ENCOUNTER 2020-08-09 20:41 | Emergency (ER) | payer MEDICAID ==
[2020-08-09 20:52] VITALS: BP 130/73; PULSE 89
--- NOTE | 2020-08-09 20:59 | EDM.PDOC ---
ED HPI GENERAL MEDICAL PROBLEM - General Chief Complaint: Abdominal Pain Stated Complaint: BLACK STOOL Time Seen by Provider: 08/09/20 20:59 Source of Information: Reports: Patient, RN, RN Notes Reviewed History Limitations: Reports: No Limitations - History of Present Illness INITIAL COMMENTS - FREE TEXT/NARRATIVE: Patient presents to ER with complaint of 4 black diarrhea stools today. Patient states she had an ERCP performed on Tuesday, August 06 in [facility]. Patient states she did take 2 stool softeners yesterday. She states she has had normal bowel movements up until today this morning she had a normal brown, normal consistency bowel movement, followed by 4 diarrhea of black stools. Patient states she does take iron. States she has been having some cramping today, feels as though she becomes bloated and has a ball in her stomach. Complains of some cramping pains to the right and left lower quadrants. Denies any fever chills, chest pains or shortness of breath, admits to nausea from time to time but denies any vomiting. Patient states she smokes. States she has not drank alcohol in 5 months. Onset: Gradual Left Lower Abdomen Pain Score (Numeric/FACES): 6 - Related Data Allergies Allergy/AdvReac Type Severity Reaction Status Date / Time codeine AdvReac Nausea and Verified 08/09/20 21:52 Vomiting Home Meds: Home Meds Esomeprazole Magnesium [Nexium 24Hr] 20 mg PO DAILY 07/20/18 [History] Metoprolol Tartrate 25 mg PO DAILY 06/18/19 [History] amLODIPine Besylate [Amlodipine Besylate] 5 mg PO DAILY 06/18/19 [History] Albuterol [Proventil HFA] 2 puff PO ASDIRECTED 04/07/20 [History] Potassium Citrate [Potassium Citrate ER] 20 meq PO BID 04/07/20 [History] Fluticasone Propion/Salmeterol [Fluticasone-Salmeterol 250-50] 1 puff INH BID 04/08/20 [History] Ferrous Sulfate 325 mg PO TID 07/25/20 [History] Folic Acid 1 mg PO BID 07/25/20 [History] Furosemide 20 mg PO DAILY 07/25/20 [History] Gabapentin [Neurontin] 300 mg PO .Q12H 07/25/20 [History] Ondansetron [Zofran ODT] 1 - 2 tab SL .Q6-8HR 07/25/20 [History] Spironolactone [Aldactone] 100 mg PO BID 07/25/20 [History] Past Medical History HEENT History: Reports: Cataract, Impaired Vision, Sinusitis Cardiovascular History: Reports: Hypertension Respiratory History: Reports: Asthma, Bronchitis, Recurrent, COPD, Other (See Below) Other Respiratory History: emphysema Gastrointestinal History: Reports: Diverticulosis, GERD, Other (See Below) Other Gastrointestinal History: diverticulitis Genitourinary History: Reports: Chronic Renal Insuffiency 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 heel spurs left Neurological History: Reports: Migraines Psychiatric History: Reports: None Endocrine/Metabolic History: Reports: Obesity/BMI 30+ Hematologic History: Reports: Anemia Immunologic History: Reports: None Oncologic (Cancer) History: Reports: None Dermatologic History: Reports: None - Infectious Disease History Infectious Disease History: Reports: Chicken Pox, Measles, Mumps - Past Surgical History Head Surgeries/Procedures: Reports: None HEENT Surgical History: Reports: Adenoidectomy, Cataract Surgery, Eye Surgery, Tonsillectomy Other HEENT Surgeries/Procedures: bilateal cataract surgery Cardiovascular Surgical History: Reports: None Respiratory Surgical History: Reports: None GI Surgical History: Reports: Cholecystectomy, Colonoscopy, EGD, ERCP, Other (See Below) Other GI Surgeries/Procedures: sigmoidectomy oct 2018 Female Surgical History: Reports: Tubal Ligation Endocrine Surgical History: Reports: None Neurological Surgical History: Reports: None Musculoskeletal Surgical History: Reports: None Dermatological Surgical History: Reports: None Social & Family History - Family History Family Medical History: No Pertinent Family History - Tobacco Use Tobacco Use Status *Q: Current Every Day Tobacco User Years of Tobacco use: 40 Packs/Tins Daily: 0.5 - Caffeine Use Caffeine Use: Reports: None Caffeine Use Comment: 2 cups coffee. 4L daily - Recreational Drug Use Recreational Drug Use: No - Living Situation & Occupation Living situation: Reports: Alone Occupation: Employed ED ROS GENERAL - Review of Systems Review Of Systems: Comprehensive ROS is negative, except as noted in HPI. ED EXAM, GI/ABD - Physical Exam Exam: See Below Exam Limited By: No Limitations General Appearance: Alert, WD/WN, No Apparent Distress Eyes: Bilateral: Normal Appearance, EOMI Ears: Normal External Exam, Hearing Grossly Normal Nose: Normal Inspection Throat/Mouth: Normal Inspection, Normal Voice, No Airway Compromise Head: Atraumatic, Normocephalic Neck: Normal Inspection, Supple, Non-Tender, Full Range of Motion Respiratory/Chest: No Respiratory Distress, Lungs Clear, No Accessory Muscle Use, Chest Non-Tender, Decreased Breath Sounds Cardiovascular: Normal Peripheral Pulses, Regular Rate, Rhythm, No Edema, No Gallop, No JVD, No Murmur, No Rub GI/Abdominal Exam: Normal Bowel Sounds, Soft, No Organomegaly, No Distention, No Abnormal Bruit, No Mass, Pelvis Stable, Tender (RLQ, LLQ) (Female) Exam: Deferred Rectal (Female) Exam: Deferred Back Exam: Normal Inspection, Full Range of Motion, NT Extremities: Normal Inspection, Normal Range of Motion, Non-Tender, Normal Capillary Refill, No Pedal Edema Neurological: Alert, Oriented, CN II-XII Intact, Normal Cognition, Normal Gait, Normal Reflexes, No Motor/Sensory Deficits Psychiatric: Normal Affect, Normal Mood Skin Exam: Warm, Dry, Intact, Normal Color, No Rash Lymphatic: No Adenopathy Course - Vital Signs Last Recorded V/S: Last Vital Signs Temp 98.9 F 08/09/20 20:46 Pulse 89 08/09/20 20:46 Resp 18 08/09/20 20:46 BP 130/73 08/09/20 20:46 Pulse Ox 97 08/09/20 20:46 - Orders/Labs/Meds Orders: Active Orders 24 hr Category Date Time Status EKG Documentation Completion [RC] STAT Care 08/09/20 20:58 Active Labs: Laboratory Tests 08/09/20 08/09/20 08/09/20 Range/Units 21:09 21:09 21:09 WBC 11.9 H (5.0-10.0) 10^3/uL RBC 4.17 L (4.2-5.4) 10^6/uL Hgb 11.2 L (12.0-16.0) g/dL Hct 35.2 L (37.0-47.0) % MCV 84.4 (80-100) fL MCH 26.9 L (27.0-34.0) pg MCHC 31.8 L (33.0-35.0) g/dL Plt Count 304 (150-450) 10^3/uL Neut % (Auto) 70.4 (42.2-75.2) % Lymph % (Auto) 19.6 L (20.5-50.1) % [place] % (Auto) 7.8 (2-8) % Eos % (Auto) 1.9 (1.0-3.0) % Baso % (Auto) 0.3 (0.0-1.0) % PT 11.3 (9.0-12.0) SEC INR 1.2 (0.9-1.2) Sodium 135 L (136-145) mmol/L Potassium 3.2 L (3.5-5.1) mmol/L Chloride 99 (98-107) mmol/L Carbon Dioxide 27 (21-32) mmol/L Anion Gap 12.2 (7-13) mEq/L BUN 9 (7-18) mg/dL Creatinine 0.68 (0.55-1.02) mg/dL Est Cr Clr Drug Dosing 72.19 mL/min Estimated GFR (MDRD) > 60 BUN/Creatinine Ratio 13.2 (No establ ref range) Glucose 102 H (74-99) mg/dL Calcium 9.0 (8.5-10.1) mg/dL Total Bilirubin 0.8 (0.2-1.0) mg/dL AST 35 (15-37) U/L ALT 28 (14-59) U/L Alkaline Phosphatase 332 H (46-116) U/L Total Protein 7.5 (6.4-8.2) g/dL Albumin 3.3 L (3.4-5.0) g/dL Globulin 4.2 Albumin/Globulin Ratio 0.79 Urine Color (YELLOW) Urine Appearance (CLEAR) Urine pH (5.0-9.0) Ur Specific [place] (1.005-1.030) Urine Protein (NEGATIVE) Urine Glucose (UA) (NEGATIVE) Urine Ketones (NEGATIVE) Urine Occult Blood (NEGATIVE) Urine Nitrite (NEGATIVE) Urine Bilirubin (NEGATIVE) Urine Urobilinogen (0.2-1.0) mg/dL Ur Leukocyte Esterase (NEGATIVE) Urine RBC /HPF Urine WBC (0-5/HPF) /HPF Ur Epithelial Cells (NOT SEEN) /HPF Amorphous Sediment (NOT SEEN) /HPF Urine Bacteria (0-FEW/HPF) /HPF Urine Mucus (NOT SEEN) /LPF 08/09/20 Range/Units 22:20 WBC (5.0-10.0) 10^3/uL RBC (4.2-5.4) 10^6/uL Hgb (12.0-16.0) g/dL Hct (37.0-47.0) % MCV (80-100) fL MCH (27.0-34.0) pg MCHC (33.0-35.0) g/dL Plt Count (150-450) 10^3/uL Neut % (Auto) (42.2-75.2) % Lymph % (Auto) (20.5-50.1) % [place] % (Auto) (2-8) % Eos % (Auto) (1.0-3.0) % Baso % (Auto) (0.0-1.0) % PT (9.0-12.0) SEC INR (0.9-1.2) Sodium (136-145) mmol/L Potassium (3.5-5.1) mmol/L Chloride (98-107) mmol/L Carbon Dioxide (21-32) mmol/L Anion Gap (7-13) mEq/L BUN (7-18) mg/dL Creatinine (0.55-1.02) mg/dL Est Cr Clr Drug Dosing mL/min Estimated GFR (MDRD) BUN/Creatinine Ratio (No establ ref range) Glucose (74-99) mg/dL Calcium (8.5-10.1) mg/dL Total Bilirubin (0.2-1.0) mg/dL AST (15-37) U/L ALT (14-59) U/L Alkaline Phosphatase (46-116) U/L Total Protein (6.4-8.2) g/dL Albumin (3.4-5.0) g/dL Globulin Albumin/Globulin Ratio Urine Color Yellow (YELLOW) Urine Appearance Clear (CLEAR) Urine pH 6.5 (5.0-9.0) Ur Specific [place] >= 1.030 (1.005-1.030) Urine Protein Negative (NEGATIVE) Urine Glucose (UA) Negative (NEGATIVE) Urine Ketones Negative (NEGATIVE) Urine Occult Blood Trace-intact H (NEGATIVE) Urine Nitrite Negative (NEGATIVE) Urine Bilirubin Negative (NEGATIVE) Urine Urobilinogen 1.0 (0.2-1.0) mg/dL Ur Leukocyte Esterase Negative (NEGATIVE) Urine RBC 0-5 /HPF Urine WBC 0-5 (0-5/HPF) /HPF Ur Epithelial Cells Few (NOT SEEN) /HPF Amorphous Sediment Few (NOT SEEN) /HPF Urine Bacteria Few (0-FEW/HPF) /HPF Urine Mucus Few H (NOT SEEN) /LPF Meds: Medications Discontinued Medications Generic Name Dose Route Start Last Admin Trade Name Freq PRN Reason Stop Dose Admin Potassium Chloride 40 meq 08/09/20 21:42 08/09/20 21:52 Klor-Con 10 PO 08/09/20 21:43 40 meq ONETIME ONE Administration Departure - Departure Time of Disposition: 22:53 Disposition: Home, Self-Care 01 Condition: Fair Clinical Impression: Diarrhea Qualifiers: Diarrhea type: unspecified type Qualified Code(s): R19.7 - Diarrhea, unspecified - Discharge Information *PRESCRIPTION DRUG MONITORING PROGRAM REVIEWED*: No *COPY OF PRESCRIPTION DRUG MONITORING REPORT IN PATIENT ANA: No Instructions: Abdominal Pain, Adult, [id number], Diarrhea, Adult, Eas y-to-Read Forms: ED Department Discharge Additional Instructions: Follow-up with your primary care provider next week Return to the ER with any worsening of problems Drink plenty of fluids water, Gatorade, powerade May use Imodium [id number] as directed if diarrhea continues Sepsis Event Note (ED) - Evaluation Sepsis Screening Result: No Definite Risk - Focused Exam Vital Signs: Vital Signs Temp Pulse Resp BP Pulse Ox 08/09/20 20:46 98.9 F 89 18 130/73 97 - My Orders Last 24 Hours: My Active Orders 08/09/20 20:58 EKG Documentation Completion [RC] STAT - Assessment/Plan Last 24 Hours: My Active Orders 08/09/20 20:58 EKG Documentation Completion [RC] STAT
[2020-08-09 21:38] LABS: ANION GAP 12.2 mEq/L (7-13); CHLORIDE,CL 99 mmol/L (98-107); SODIUM,NA 135 mmol/L (136-145)
[2020-08-09] MEDS ORDERED: Potassium Chloride 10 MEQ Tab.ER PO ONE (21:42)
== END 2020-08-09 22:56 | disposition home or self-care (01) ==
LOC: DL.ED 20:41
DX: R19.7 Diarrhea, unspecified (principal); R10.31 Right lower quadrant pain; R10.32 Left lower quadrant pain; J44.9 Chronic obstructive pulmonary disease, unspecified; K21.9 Gastro-esophageal reflux disease without esophagitis; I12.9 Hypertensive chronic kidney disease with stage 1 through stage 4 chronic kidney disease, or unspecified chronic kidney disease; N18.9 Chronic kidney disease, unspecified; F17.210 Nicotine dependence, cigarettes, uncomplicated; E66.9 Obesity, unspecified; Z68.36 Body mass index [BMI] 36.0-36.9, adult; Z88.5 Allergy status to narcotic agent; Z79.899 Other long term (current) drug therapy
CPT/HCPCS: 36415; 80053; 81001; 82272; 85025; 85610; 93005; 99284; A9270

== ENCOUNTER 2020-08-14 06:26 | Day surgery (SDC) | payer MEDICAID ==
[~2020-08-14 06:26] MED LIST: Midazolam 1 MG/ML 2 ML SDV ONE; fentaNYL 100 MCG/2 ML SDV ONE
[2020-08-14] MEDS ORDERED: fentaNYL 100 MCG/2 ML SDV IV ONE ×3 (06:27→08:00)
[2020-08-14] MEDS ORDERED: Midazolam 1 MG/ML 2 ML SDV IV ONE ×4 (06:27→08:11)
[2020-08-14] MEDS ORDERED: Dextrose 5%-0.45% NaCl 1,000 ML IV SCH (06:45)
[2020-08-14 11:06] VITALS: BP 93/60; PULSE 62
--- NOTE | 2020-08-14 12:40 | OR ---
DATE: 08/14/2020 PROCEDURES: Total colonoscopy, multiple cold snare polypectomies, and biopsies. INSTRUMENT USED: PCF-H190DL Olympus video colonoscope. PREMEDICATIONS: Fentanyl 100 mcg intravenous, Versed 2.5 mg intravenous, nasal O2 cannula. The procedure was done under pulse oximetry, BP recording, and manager monitoring. INDICATION: The patient with liver cirrhosis and status post sigmoid resection for diverticulitis. Screening colonoscopic examination is done for detection of any polypoid lesions and removal, endoscopic hemostasis therapy if needed. DESCRIPTION OF PROCEDURE: Initial rectal exam showed external hemorrhoidal tags. Rigid anoscopy was normal. The colonoscope was passed with ease. In the distal rectum, 3 mm sized benign-appearing polyp was noted, NBI views were obtained, photographs were taken, cold snare polypectomy was done. The tissue was retrieved and sent for histopathology. Some prominent benign-appearing fold was noted in the rectum, photograph was taken, multiple pinch biopsies were obtained. Scattered diverticula as well as postsurgical deformity noted at the distal left colon. The scope was passed with ease up to the ileocecal area. Diminutive benign-appearing polyp was noted in the proximal ascending colon, cold snare polypectomy was done, the tissue was sent by histopathology. No bleeding was noted from any of the visualized areas at the commencement of the examination. The bowel preparation was found to be adequate, Adel scale 2 in all the areas, total score 6. No vascular ectasia. No large isolated ulcerations seen. No evidence of diffuse inflammatory bowel disease in the form of friability, contact bleeding, or ulcerations. Probing the proximal sides of folds and flexures using adequate distention and clearing up the stool material, withdrawal of the scope was made, cecum to rectum time over 6 minutes. No bleeding was noted from any of the visualized areas at the completion of examination. IMPRESSION: 1. External hemorrhoids. 2. Diverticulosis. 3. Diminutive colonic polyps. The patient tolerated the procedure well. [facility] /[id number]
--- NOTE | 2020-08-14 14:06 | LETTER ---
08/14/2020 RE: GUY ESTRADA : 1965 Radha Soriano PA-C [address] [address] Dear Ms. Soriano: Ms. Guy Estrada had colonoscopic examination done this morning, and she tolerated the procedure well. I herewith send a copy of the endoscopy note and photographs for your review. Thank you. Sincerely, [facility] /[id number]
== END 2020-08-14 10:30 | disposition home or self-care (01) ==
LOC: DL.ENDO 06:26
PROVIDERS: ATTEND Internal Medicine Gastroenterology
DX: D12.2 Benign neoplasm of ascending colon (principal); K62.1 Rectal polyp; K57.30 Diverticulosis of large intestine without perforation or abscess without bleeding; K64.4 Residual hemorrhoidal skin tags; J45.909 Unspecified asthma, uncomplicated; E66.09 Other obesity due to excess calories; K21.9 Gastro-esophageal reflux disease without esophagitis; D64.9 Anemia, unspecified; K70.30 Alcoholic cirrhosis of liver without ascites; I10 Essential (primary) hypertension; Z90.49 Acquired absence of other specified parts of digestive tract; Z98.890 Other specified postprocedural states; Z88.5 Allergy status to narcotic agent; Z79.899 Other long term (current) drug therapy; Z68.35 Body mass index [BMI] 35.0-35.9, adult
CPT/HCPCS: 45380; 45385; J2250; J3010; J7042

== ENCOUNTER 2020-12-19 14:16 | Emergency (ER) | payer MEDICAID ==
[2020-12-19 14:56] VITALS: BP 130/62; PULSE 62
--- NOTE | 2020-12-19 15:10 | EDM.PDOC ---
ED HPI GENERAL MEDICAL PROBLEM - General Chief Complaint: Lower Extremity Injury/Pain Stated Complaint: RIGHT KNEE WONT WORK CORRECTLY GETTING WORSE Time Seen by Provider: 12/19/20 15:36 Source of Information: Reports: Patient History Limitations: Reports: No Limitations - History of Present Illness INITIAL COMMENTS - FREE TEXT/NARRATIVE: ED with pain to right knee starting this am, Pain with weight bearing and standing. pain in knee radiates up to lateral hip. Told to come in by her boss. Did not attempt primary care. Has not taken anything for pain. Employer concerned she may have "blood clot" from receiving COVID vaccine. Right Knee Pain Score (Numeric/FACES): 9 - Related Data Allergies Allergy/AdvReac Type Severity Reaction Status Date / Time codeine AdvReac Nausea and Verified 12/19/20 14:56 Vomiting Home Meds: Home Meds Esomeprazole Magnesium [Nexium 24Hr] 40 mg PO BID 07/20/18 [History] Metoprolol Tartrate 25 mg PO BID 06/18/19 [History] amLODIPine Besylate [Amlodipine Besylate] 5 mg PO DAILY 06/18/19 [History] Albuterol [Proventil HFA] 2 puff PO ASDIRECTED 04/07/20 [History] Potassium Citrate [Potassium Citrate ER] 20 meq PO BID 04/07/20 [History] Fluticasone Propion/Salmeterol [Fluticasone-Salmeterol 250-50] 1 puff INH BID 04/08/20 [History] Ferrous Sulfate 325 mg PO DAILY 07/25/20 [History] Folic Acid 1 mg PO DAILY 07/25/20 [History] Gabapentin [Neurontin] 300 mg PO TID 07/25/20 [History] Ondansetron [Zofran ODT] 1 - 2 tab SL .Q6-8HR 07/25/20 [History] Spironolactone [Aldactone] 100 mg PO DAILY 07/25/20 [History] Acetaminophen 500 mg PO Q6H PRN 08/13/20 [History] Docusate Sodium [Stool Softener] 100 mg PO DAILY PRN 08/13/20 [History] Past Medical History HEENT History: Reports: Cataract, Impaired Vision, Sinusitis Other HEENT History: wears glasses Cardiovascular History: Reports: Hypertension, Syncope Respiratory History: Reports: Asthma, Bronchitis, Recurrent, COPD, Other (See Below) Other Respiratory History: emphysema Gastrointestinal History: Reports: Diverticulosis, GERD, GI Bleed, Other (See Below) Other Gastrointestinal History: diverticulitis. COLITIS Genitourinary History: Reports: Chronic Renal Insuffiency, UTI, Recurrent FIRER ELECTRIC LOCOMOTIVE History: Reports: , Spontaneous Other FIRER ELECTRIC LOCOMOTIVE History: 2 NVD, 4 miscarriages Musculoskeletal History: Reports: Fracture, Other (See Below) Other Musculoskeletal History: left 5th toe jun 2015. heel spurs left Neurological History: Reports: Migraines Psychiatric History: Reports: None Endocrine/Metabolic History: Reports: Obesity/BMI 30+ Hematologic History: Reports: Anemia Immunologic History: Reports: None Oncologic (Cancer) History: Reports: None Dermatologic History: Reports: None - Infectious Disease History Infectious Disease History: Reports: Chicken Pox, Measles, Mumps - Past Surgical History Head Surgeries/Procedures: Reports: None HEENT Surgical History: Reports: Adenoidectomy, Cataract Surgery, Eye Surgery, Tonsillectomy Other HEENT Surgeries/Procedures: bilateal cataract surgery Cardiovascular Surgical History: Reports: None Respiratory Surgical History: Reports: None GI Surgical History: Reports: Cholecystectomy, Colon, Colonoscopy, EGD, ERCP, Other (See Below) Other GI Surgeries/Procedures: sigmoidectomy oct 2018 Female Surgical History: Reports: Breast Biopsy, Tubal Ligation Endocrine Surgical History: Reports: None Neurological Surgical History: Reports: None Musculoskeletal Surgical History: Reports: None Dermatological Surgical History: Reports: None Social & Family History - Family History Family Medical History: No Pertinent Family History - Tobacco Use Tobacco Use Status *Q: Current Every Day Tobacco User Years of Tobacco use: 45 Packs/Tins Daily: 0.5 Second Hand Smoke Exposure: No - Caffeine Use Caffeine Use: Reports: Soda Caffeine Use Comment: 2 cups coffee. 4L daily - Recreational Drug Use Recreational Drug Use: No - Living Situation & Occupation Living situation: Reports: Alone Occupation: Employed Review of Systems - Review of Systems Review Of Systems: Comprehensive ROS is negative, except as noted in HPI. ED EXAM, GENERAL - Physical Exam Exam: See Below Exam Limited By: No Limitations General Appearance: Alert, Mild Distress, Obese Eye Exam: Bilateral Eye: EOMI Ears: Normal External Exam, Hearing Grossly Normal Ear Exam: Bilateral Ear: Other Nose: Normal Inspection Throat/Mouth: Normal Inspection Head: Atraumatic, Normocephalic Neck: Normal Inspection Respiratory/Chest: No Respiratory Distress, Lungs Clear, Normal Breath Sounds Cardiovascular: Regular Rate, Rhythm GI/Abdominal: Soft, Non-Tender Extremities: Normal Inspection, Joint Swelling (mild right anterior distal knee. mild crepitus, increased pain with extension. ) Neurological: Alert, Oriented, Normal Cognition Psychiatric: Normal Affect, Normal Mood Skin Exam: Warm, Dry, Intact, Normal Color Course - Vital Signs Last Recorded V/S: Last Vital Signs Temp 97.1 F 12/19/20 14:50 Pulse 62 12/19/20 14:50 Resp 16 12/19/20 14:50 BP 130/62 12/19/20 14:50 Pulse Ox 97 12/19/20 14:50 - Orders/Labs/Meds Orders: Active Orders 24 hr Category Date Time Status Knee 3V Lt [CR] Urgent Exams 12/19/20 15:59 Stop Req Labs: Laboratory Tests 12/19/20 12/19/20 12/19/20 Range/Units 15:52 15:52 15:52 WBC 8.4 (5.0-10.0) 10^3/uL RBC 4.55 (4.2-5.4) 10^6/uL Hgb 14.3 (12.0-16.0) g/dL Hct 44.7 (37.0-47.0) % MCV 98.2 D (80-100) fL MCH 31.4 (27.0-34.0) pg MCHC 32.0 L (33.0-35.0) g/dL Plt Count 212 (150-450) 10^3/uL Neut % (Auto) 50.0 (42.2-75.2) % Lymph % (Auto) 39.0 (20.5-50.1) % [place] % (Auto) 5.9 (2-8) % Eos % (Auto) 4.6 H (1.0-3.0) % Baso % (Auto) 0.5 (0.0-1.0) % Add Manual Diff Yes Neutrophils % (Manual) 55 (42-75) % Lymphocytes % (Manual) 36 (20-50) % Monocytes % (Manual) 3 (2-8) % Eosinophils % (Manual) 6 H (1-3) % D-Dimer, Quantitative 210 (0-400) ng/mL Sodium 141 (136-145) mmol/L Potassium 4.4 (3.5-5.1) mmol/L Chloride 102 (98-107) mmol/L Carbon Dioxide 31 (21-32) mmol/L Anion Gap 12.4 (7-13) mEq/L BUN 13 (7-18) mg/dL Creatinine 0.81 (0.55-1.02) mg/dL Est Cr Clr Drug Dosing 60.61 mL/min Estimated GFR (MDRD) > 60 BUN/Creatinine Ratio 16.0 (No establ ref range) Glucose 80 (70-99) mg/dL Calcium 9.3 (8.5-10.1) mg/dL Total Bilirubin 0.8 (0.2-1.0) mg/dL AST 32 (15-37) U/L ALT 37 (14-59) U/L Alkaline Phosphatase 207 H (46-116) U/L Total Protein 7.8 (6.4-8.2) g/dL Albumin 3.7 (3.4-5.0) g/dL Globulin 4.1 Albumin/Globulin Ratio 0.9 Departure - Departure Time of Disposition: 16:31 Disposition: Home, Self-Care 01 Condition: Good Clinical Impression: Knee pain, right Qualifiers: Chronicity: acute Qualified Code(s): M25.561 - Pain in right knee Knee pain Qualifiers: Chronicity: acute Laterality: right Qualified Code(s): M25.561 - Pain in right knee - Discharge Information *PRESCRIPTION DRUG MONITORING PROGRAM REVIEWED*: No *COPY OF PRESCRIPTION DRUG MONITORING REPORT IN PATIENT ANA: No Instructions: Acute Knee Pain, Adult Referrals: Daphne Godinez NP [Primary Care Provider] - Forms: ED Department Discharge Additional Instructions: ice pack to knee rest follow up next week in clinic if not improved weight bearing as tolerated. over counter bengay or similar product to area as label directions Sepsis Event Note (ED) - Evaluation Sepsis Screening Result: No Definite Risk - My Orders Last 24 Hours: My Active Orders 12/19/20 15:59 Knee 3V Lt [CR] Urgent - Assessment/Plan Last 24 Hours: My Active Orders 12/19/20 15:59 Knee 3V Lt [CR] Urgent
--- NOTE | 2020-12-19 15:55 | CR ---
PROCEDURE INFORMATION: Exam: XR Right Knee Exam date and time: 12/19/2020 3:43 PM Age: 55 years old Clinical indication: Pain; Knee; Right TECHNIQUE: Imaging protocol: XR Right knee. Views: 3 views. COMPARISON: No relevant prior studies available. FINDINGS: Bones/joints: Normal anatomic alignment. There is no evidence of acutely displaced fractures. There is no evidence of dislocation. No aggressive osseous lesions. There is no evidence of a joint effusion. Soft tissues: There is no significant soft tissue swelling. IMPRESSION: Negative for acute skeletal pathology.
[2020-12-19 16:17] LABS: ANION GAP 12.4 mEq/L (7-13); CHLORIDE,CL 102 mmol/L (98-107); SODIUM,NA 141 mmol/L (136-145)
== END 2020-12-19 16:43 | disposition home or self-care (01) ==
LOC: DL.ED 14:16
DX: M25.561 Pain in right knee (principal); K21.9 Gastro-esophageal reflux disease without esophagitis; I12.9 Hypertensive chronic kidney disease with stage 1 through stage 4 chronic kidney disease, or unspecified chronic kidney disease; N18.9 Chronic kidney disease, unspecified; J44.9 Chronic obstructive pulmonary disease, unspecified; E66.9 Obesity, unspecified; Z68.34 Body mass index [BMI] 34.0-34.9, adult; Z88.5 Allergy status to narcotic agent; Z79.899 Other long term (current) drug therapy; Z72.0 Tobacco use
CPT/HCPCS: 36415; 73562-RT; 80053; 85025; 85379; 99283

== ENCOUNTER 2022-03-01 16:10 | Inpatient (IN) | payer MEDICAID ==
[2022-03-01] MEDS ORDERED: Albuterol/Ipratropium 3.0-0.5 MG/3 ML Neb Soln NEB ONE (16:46)
[2022-03-01] MEDS ORDERED: methylPREDNISolone Sodium Succinate 125 MG/2 ML SDV IVPUSH ONE (16:46)
[2022-03-01] MEDS ORDERED: Acetaminophen 500 MG Tab PO ONE (16:47)
[2022-03-01 17:50] LABS: ANION GAP 10.9 mEq/L (7-13)
[2022-03-01 17:54] LABS: CORONAVIRUS COVID-19 NAA NEGATIVE (NEGATIVE)
[2022-03-01] MEDS ORDERED: Furosemide 20 MG/2 ML VIAL IVPUSH ONE (18:11)
[2022-03-01] MEDS ORDERED: Zolpidem 5 MG Tab PO PRN (19:35)
[2022-03-01] MEDS ORDERED: Docusate Sodium 100 MG Cap PO PRN (19:35)
[2022-03-01] MEDS ORDERED: Ondansetron 4 MG/2 ML SDV IVPUSH PRN (19:35)
[2022-03-01] MEDS ORDERED: HYDROmorphone 0.5 MG/0.5 ML Syringe IVPUSH PRN (19:35)
[2022-03-01] MEDS ORDERED: Bisacodyl 5 MG Tab PO PRN (19:35)
[2022-03-01] MEDS ORDERED: Ketorolac 30 MG/ML SDV IVPUSH PRN (19:35)
[2022-03-01] MEDS ORDERED: Acetaminophen/HYDROcodone 325-10 MG Tab PO PRN (19:35)
[2022-03-01] MEDS ORDERED: Ibuprofen 600 MG Tab PO PRN (19:35)
[2022-03-01] MEDS ORDERED: Albuterol/Ipratropium 3.0-0.5 MG/3 ML Neb Soln NEB PRN (19:35)
[2022-03-01] MEDS ORDERED: Polyethylene Glycol 3350 Powder 17 GM Packet PO PRN (19:35)
[2022-03-01] MEDS ORDERED: Morphine 2 MG/ML SYRINGE IVPUSH PRN (19:35)
[2022-03-01] MEDS ORDERED: 50% Dextrose in Water 50 ML Syringe IVPUSH PRN (19:40)
[2022-03-01] MEDS ORDERED: Glucagon,Human Recombinant 1 MG Vial IM PRN (19:40)
[2022-03-01] MEDS: Nicotine 21 MG/24 Hr Patch TRDERM SCH (19:53)
[2022-03-01] MEDS ORDERED: hydrALAZINE 20 MG/ML SDV IVPUSH PRN (20:22)
[2022-03-01] MEDS ORDERED: Metoprolol Tartrate 5 MG/5 ML SDV IVPUSH PRN (20:22)
[2022-03-01] MEDS ORDERED: Benzonatate 100 MG Cap PO PRN (20:25)
[2022-03-01] MEDS ORDERED: Acetaminophen/Butalbital/Caffeine 325-50-40 MG Tab PO PRN (20:25)
[2022-03-01] MEDS ORDERED: Melatonin 3 MG Tab PO PRN (20:26)
[2022-03-01] MEDS ORDERED: Azithromycin 500 MG Vial ONE (20:31)
[2022-03-01] MEDS: Famotidine 20 MG Tab PO SCH (21:02)
[2022-03-01] MEDS: Azithromycin 500 MG in Sodium Chloride 0.9% 250 ML IV SCH (21:02)
[2022-03-02] MEDS: methylPREDNISolone Sodium Succinate 125 MG/2 ML SDV IVPUSH SCH ×3 (00:25→17:02)
[2022-03-02] MEDS: guaiFENesin/Dextromethorphan 100-10 MG/5 ML Soln 5 ML Cup PO PRN ×3 (02:30→21:56)
[2022-03-02 06:52] LABS: ANION GAP 10.6 mEq/L (7-13)
[2022-03-02] MEDS: Famotidine 20 MG Tab PO SCH ×2 (08:11→20:39)
[2022-03-02] MEDS: Nicotine 21 MG/24 Hr Patch TRDERM SCH (08:11)
[2022-03-02] MEDS: Gabapentin 300 MG Cap PO SCH ×3 (08:11→20:39)
[2022-03-02] MEDS: Loratadine 10 MG Tab PO SCH (08:11)
[2022-03-02] MEDS: Insulin Lispro 100 Units/ML 3 ML Vial SUBCUT SCH ×3 (08:12→17:03)
[2022-03-02] MEDS ORDERED: Acetaminophen 500 MG Tab PO PRN (09:56)
[2022-03-02] MEDS ORDERED: Non-Formulary Medication 1 Each (Docusate Sodium [Stool Softener] 100 MG Tablet) PO PRN (09:56)
[2022-03-02] MEDS ORDERED: Iopamidol 612 MG/ML 100 ML Bottle IVPUSH ONE (11:00)
[2022-03-02] MEDS ORDERED: Non-Formulary Medication 1 Each (Methocarbamol 750 MG Tablet) PO SCH (14:00)
[2022-03-02] MEDS: Pregabalin 50 MG Cap PO SCH ×2 (14:09→20:40)
[2022-03-02] MEDS: Acetaminophen 325 MG Tab PO PRN ×2 (14:09→20:37)
[2022-03-02] MEDS: Pantoprazole 40 MG Tab.CR PO SCH (17:02)
[2022-03-02] MEDS: Formoterol/Mometasone 100-5 MCG 8.8 GM Inhaler IH SCH (17:04)
[2022-03-02] MEDS: Folic Acid 1 MG Tab PO SCH (20:39)
[2022-03-02] MEDS: Metoprolol Tartrate 25 MG Tab PO SCH (20:43)
[2022-03-02] MEDS: Spironolactone 25 MG Tab PO SCH (20:43)
[2022-03-02] MEDS: Azithromycin 500 MG in Sodium Chloride 0.9% 250 ML IV SCH (20:45)
[2022-03-03] MEDS: methylPREDNISolone Sodium Succinate 125 MG/2 ML SDV IVPUSH SCH ×2 (00:46→08:57)
[2022-03-03] MEDS: Formoterol/Mometasone 100-5 MCG 8.8 GM Inhaler IH SCH (06:47)
[2022-03-03] MEDS: Pantoprazole 40 MG Tab.CR PO SCH (06:47)
[2022-03-03 07:19] LABS: ANION GAP 10.5 mEq/L (7-13)
[2022-03-03 08:04] VITALS: BP 131/57; PULSE 55
[2022-03-03] MEDS: Pregabalin 50 MG Cap PO SCH (08:53)
[2022-03-03] MEDS: Loratadine 10 MG Tab PO SCH (08:53)
[2022-03-03] MEDS: Gabapentin 300 MG Cap PO SCH (08:53)
[2022-03-03] MEDS: Folic Acid 1 MG Tab PO SCH (08:53)
[2022-03-03] MEDS: Famotidine 20 MG Tab PO SCH (08:54)
[2022-03-03] MEDS: Metoprolol Tartrate 25 MG Tab PO SCH (08:54)
[2022-03-03] MEDS: Insulin Lispro 100 Units/ML 3 ML Vial SUBCUT SCH ×2 (08:56→11:31)
[2022-03-03] MEDS: Nicotine 21 MG/24 Hr Patch TRDERM SCH (08:59)
[2022-03-03] MEDS ORDERED: amLODIPine 5 MG Tab PO SCH (09:00)
[2022-03-03] MEDS: Spironolactone 25 MG Tab PO SCH (09:00)
== END 2022-03-03 12:56 | disposition home or self-care (01) | DRG 191 ==
LOC: DL.ED 16:10 → DL.MS 19:19
PROVIDERS: ADMIT Internal Medicine; ATTEND Internal Medicine
DX: J44.1 Chronic obstructive pulmonary disease with (acute) exacerbation (principal); J90 Pleural effusion, not elsewhere classified; Z68.41 Body mass index [BMI] 40.0-44.9, adult; D72.829 Elevated white blood cell count, unspecified; R74.8 Abnormal levels of other serum enzymes; E66.9 Obesity, unspecified; G47.30 Sleep apnea, unspecified; E80.6 Other disorders of bilirubin metabolism; Z20.822 Contact with and (suspected) exposure to COVID-19; K21.9 Gastro-esophageal reflux disease without esophagitis; D50.9 Iron deficiency anemia, unspecified; K57.90 Diverticulosis of intestine, part unspecified, without perforation or abscess without bleeding; N18.9 Chronic kidney disease, unspecified; F17.210 Nicotine dependence, cigarettes, uncomplicated; I12.9 Hypertensive chronic kidney disease with stage 1 through stage 4 chronic kidney disease, or unspecified chronic kidney disease; H54.7 Unspecified visual loss; K44.9 Diaphragmatic hernia without obstruction or gangrene; Z71.6 Tobacco abuse counseling; Z88.5 Allergy status to narcotic agent; Z79.51 Long term (current) use of inhaled steroids; Z79.899 Other long term (current) drug therapy; Z98.49 Cataract extraction status, unspecified eye
CPT/HCPCS: 0240U; 36415; 71045; 71260; 80053; 82306; 82947; 83605; 83735; 83880; 84439; 84443; 84484; 85025; 85651; 86140; 93010; 94640; 96374; 96375; 97116-GP; 97161-GP; 97165-GO; 99284; 99285-25; A9270-GY; J0456; J1940; J2930; J7050; J7620-GY; Q9967

== ENCOUNTER 2022-06-17 11:16 | Emergency (ER) | payer MEDICAID ==
[2022-07-12 12:07] LABS: ANION GAP 12.2 mEq/L (7-13); CHLORIDE,CL 101 mmol/L (98-107); ESTIMATED GFR 78 mL/min (>=60); SODIUM,NA 138 mmol/L (136-145)
== END 2022-06-17 12:35 ==
LOC: DL.ED 11:16
DX: I63.9 Cerebral infarction, unspecified (principal); I10 Essential (primary) hypertension
CPT/HCPCS: 36415; 37195; 70450; 80053; 84484; 85025; 85610; 93005; 96374; 99285-25

== ENCOUNTER 2022-07-08 20:37 | Emergency (ER) | payer MEDICAID ==
[2022-07-08 20:24] VITALS: BP 151/125; PULSE 76
[~2022-07-08 20:37] MED LIST changes: -Midazolam 1 MG/ML 2 ML SDV ONE; +Sodium Chloride 0.9% 10 ML Syringe FLUSH PRN; -fentaNYL 100 MCG/2 ML SDV ONE
[2022-07-08 20:47] LABS: ANION GAP 10.9 mEq/L (7-13); CHLORIDE,CL 97 mmol/L (98-107); PTT,PARTIAL THROMBOPLSTIN TIME 26.3 SEC (22.0-34.0); SODIUM,NA 135 mmol/L (136-145)
[2022-07-08 21:03] LABS: ESTIMATED GFR 87 mL/min (>=60)
== END 2022-07-08 21:23 | disposition left against medical advice (07) ==
LOC: DL.ED 20:37
DX: R51.9 Headache, unspecified (principal); M62.81 Muscle weakness (generalized); R47.01 Aphasia; J44.9 Chronic obstructive pulmonary disease, unspecified; I10 Essential (primary) hypertension; E66.9 Obesity, unspecified; Z68.41 Body mass index [BMI] 40.0-44.9, adult; Z88.5 Allergy status to narcotic agent; Z79.899 Other long term (current) drug therapy; Z79.82 Long term (current) use of aspirin; Z90.49 Acquired absence of other specified parts of digestive tract
CPT/HCPCS: 36415; 70450; 80053; 81001; 83605; 84145; 84484; 85025; 85610; 85730; 86140; 93005; 99285; J3490

== ENCOUNTER 2022-12-03 09:23 | Emergency (ER) | payer MEDICAID ==
[2022-12-03] MEDS ORDERED: Sodium Chloride 0.9% 10 ML Syringe FLUSH PRN (09:38)
[2022-12-03 10:27] LABS: ANION GAP 12.5 mEq/L (7-13)
[2022-12-03 10:42] LABS: CORONAVIRUS COVID-19 NAA NEGATIVE (NEGATIVE); RESPIRATORY SYNCYTIAL VIR NAA NEGATIVE (NEGATIVE)
[2022-12-03] MEDS ORDERED: Sodium Chloride 0.9% 1,000 ML IV ONE (11:02)
[2022-12-03] MEDS ORDERED: cefTRIAXone 2 GM Vial IVPUSH ONE (11:15)
[2022-12-03 11:48] VITALS: BP 110/67; PULSE 74
== END 2022-12-03 11:43 | disposition home or self-care (01) ==
LOC: DL.ED 09:23
DX: J18.9 Pneumonia, unspecified organism (principal); I12.9 Hypertensive chronic kidney disease with stage 1 through stage 4 chronic kidney disease, or unspecified chronic kidney disease; N18.9 Chronic kidney disease, unspecified; J44.9 Chronic obstructive pulmonary disease, unspecified; E66.9 Obesity, unspecified; Z68.41 Body mass index [BMI] 40.0-44.9, adult; Z88.5 Allergy status to narcotic agent; Z79.82 Long term (current) use of aspirin; Z79.899 Other long term (current) drug therapy; Z86.73 Personal history of transient ischemic attack (TIA), and cerebral infarction without residual deficits; Z20.822 Contact with and (suspected) exposure to COVID-19
CPT/HCPCS: 0241U; 36415; 71045; 80053; 81001; 83605; 83735; 84145; 84484; 85025; 86140; 87040; 93005; 93010; 96361; 96374; 99284; 99285-25; J0696; J3490; J7030

== ENCOUNTER 2022-12-29 14:51 | Emergency (ER) | payer MEDICAID ==
[2022-12-29] MEDS ORDERED: Sodium Chloride 0.9% 10 ML Syringe FLUSH PRN (14:54)
[2022-12-29 15:28] VITALS: BP 147/104; PULSE 71
[2022-12-29] MEDS ORDERED: Sodium Chloride 0.9% 1,000 ML IV ONE (15:52)
[2022-12-29] MEDS ORDERED: Metoclopramide 10 MG/2 ML SDV IVPUSH ONE (15:52)
[2022-12-29] MEDS ORDERED: Ketorolac 30 MG/ML SDV IVPUSH ONE (15:52)
[2022-12-29 15:58] LABS: PTT,PARTIAL THROMBOPLSTIN TIME 24.1 SEC (22.0-34.0)
[2022-12-29 16:26] LABS: ANION GAP 11.9 mEq/L (7-13); CHLORIDE,CL 100 mmol/L (98-107); SODIUM,NA 138 mmol/L (136-145)
[2022-12-29 16:27] LABS: ESTIMATED GFR 73 mL/min (>=60)
[2022-12-29 16:35] LABS: AMPHETAMINES,URINE NEGATIVE (NEGATIVE); BARBITURATES,URINE NEGATIVE (NEGATIVE); BENZODIAZEPINE,URINE NEGATIVE (NEGATIVE); MDMA (ECSTASY), URINE NEGATIVE (NEGATIVE); METHADONE,URINE NEGATIVE (NEGATIVE); METHAMPHETAMINES,URINE NEGATIVE (NEGATIVE); OPIATES,URINE NEGATIVE (NEGATIVE); OXYCODONE,URINE NEGATIVE (NEGATIVE); PHENCYCLIDINE,URINE NEGATIVE (NEGATIVE); TCA,URINE POSITIVE (NEGATIVE)
== END 2022-12-29 18:33 | disposition home or self-care (01) ==
LOC: DL.ED 14:51
DX: G43.401 Hemiplegic migraine, not intractable, with status migrainosus (principal); D72.829 Elevated white blood cell count, unspecified; J44.9 Chronic obstructive pulmonary disease, unspecified; K21.9 Gastro-esophageal reflux disease without esophagitis; I12.9 Hypertensive chronic kidney disease with stage 1 through stage 4 chronic kidney disease, or unspecified chronic kidney disease; N18.9 Chronic kidney disease, unspecified; E66.9 Obesity, unspecified; Z68.41 Body mass index [BMI] 40.0-44.9, adult; Z88.5 Allergy status to narcotic agent; Z79.899 Other long term (current) drug therapy; Z79.82 Long term (current) use of aspirin
CPT/HCPCS: 36415; 70450; 80053; 80305; 80307; 81003; 82607; 82947; 83605; 84145; 84443; 84484; 85004; 85025; 85610; 85730; 86140; 93005; 93010; 96361; 96374; 96375; 99284; J1885; J2765; J7030; J3490

== ENCOUNTER 2023-02-18 14:11 | Emergency (ER) | payer MEDICAID ==
[2023-02-18] MEDS ORDERED: Sodium Chloride 0.9% 10 ML Syringe FLUSH PRN (14:22)
[2023-02-18] MEDS ORDERED: Ketorolac 30 MG/ML SDV IVPUSH ONE (14:23)
[2023-02-18] MEDS ORDERED: Sodium Chloride 0.9% 1,000 ML IV ONE (14:23)
[2023-02-18 14:48] LABS: APPEARANCE,URINE CLEAR (CLEAR); BILIRUBIN,URINE SMALL (NEGATIVE); COLOR,URINE DARK YELLOW (YELLOW); GLUCOSE,URINE NEGATIVE (NEGATIVE); KETONES,URINE TRACE (NEGATIVE); LEUKOCYTE ESTERASE,URINE NEGATIVE (NEGATIVE); NITRITE,URINE NEGATIVE (NEGATIVE); OCCULT BLOOD,URINE NEGATIVE (NEGATIVE); PROTEIN,URINE TRACE (NEGATIVE)
[2023-02-18 14:51] LABS: BASOPHILS PERCENT AUTO 0.2 % (0.0-1.0); EOSINOPHILS PERCENT AUTO 0.8 % (1.0-3.0); HEMATOCRIT 42.2 % (37.0-47.0); HEMOGLOBIN 13.8 g/dL (12.0-16.0); LYMPHOCYTES PERCENT AUTO 19.8 % (20.5-50.1); MEAN CORPUSCULAR HEMOGLOBIN 31.9 pg (27.0-34.0); MEAN CORPUSCULAR HGB CONC 32.7 g/dL (33.0-35.0); MEAN CORPUSCULAR VOLUME 97.7 fL (80-100); MONOCYTES PERCENT AUTO 7.5 % (2-8); NEUTROPHILS PERCENT AUTO 71.7 % (42.2-75.2); PLATELET COUNT,PLT 171 10^3/uL (150-450); RED BLOOD CELL COUNT 4.32 10^6/uL (4.2-5.4); WHITE BLOOD CELL COUNT,WBC 15.5 10^3/uL (5.0-10.0)
[2023-02-18 15:00] LABS: AMORPHOUS SEDIMENT,URINE FEW /HPF (NOT SEEN); BACTERIA,URINE MODERATE /HPF (0-FEW/HPF); EPITHELIAL CELLS,URINE MODERATE /HPF (NOT SEEN); MDMA (ECSTASY), URINE NEGATIVE (NEGATIVE); METHAMPHETAMINES,URINE NEGATIVE (NEGATIVE); MUCUS,URINE FEW /LPF (NOT SEEN); WBC,URINE 0-5 /HPF (0-5/HPF)
[2023-02-18 15:01] LABS: ALBUMIN 3.2 g/dL (3.4-5.0); ANION GAP 9.7 mEq/L (7-13); BILIRUBIN TOTAL 1.2 mg/dL (0.2-1.0); CALCIUM 8.8 mg/dL (8.5-10.1); CREATININE 0.83 mg/dL (0.55-1.02); EST CRCL DRUG DOSING (CG) 55.07 mL/min; POTASSIUM,K 3.7 mmol/L (3.5-5.1); PROTEIN TOTAL,TP 6.6 g/dL (6.4-8.2)
[2023-02-18 15:01] LABS: AMPHETAMINES,URINE NEGATIVE (NEGATIVE); BARBITURATES,URINE NEGATIVE (NEGATIVE); BENZODIAZEPINE,URINE NEGATIVE (NEGATIVE); METHADONE,URINE NEGATIVE (NEGATIVE); OPIATES,URINE NEGATIVE (NEGATIVE); OXYCODONE,URINE NEGATIVE (NEGATIVE); PHENCYCLIDINE,URINE NEGATIVE (NEGATIVE); TCA,URINE POSITIVE (NEGATIVE)
[2023-02-18 15:02] LABS: A/G RATIO 0.94
[2023-02-18 16:28] VITALS: BP 98/61; PULSE 84
== END 2023-02-18 16:20 | disposition home or self-care (01) ==
LOC: DL.ED 14:11
DX: G43.909 Migraine, unspecified, not intractable, without status migrainosus (principal); R09.02 Hypoxemia; J43.9 Emphysema, unspecified; I12.9 Hypertensive chronic kidney disease with stage 1 through stage 4 chronic kidney disease, or unspecified chronic kidney disease; N18.9 Chronic kidney disease, unspecified; K21.9 Gastro-esophageal reflux disease without esophagitis; F17.210 Nicotine dependence, cigarettes, uncomplicated; D64.9 Anemia, unspecified; E66.9 Obesity, unspecified; Z68.42 Body mass index [BMI] 45.0-49.9, adult; Z88.5 Allergy status to narcotic agent; Z79.82 Long term (current) use of aspirin; Z79.899 Other long term (current) drug therapy
CPT/HCPCS: 36415; 71045; 80053; 80305; 81001; 85025; 87804; 96374; 99283; J1885; J7030

== ENCOUNTER 2024-04-02 14:55 | Emergency (ER) | payer MEDICAID ==
[2024-04-02] MEDS: Ketorolac 30 MG/ML SDV IVPUSH ONE ×2 (16:05→16:21)
[2024-04-02] MEDS: Ketorolac 30 MG/ML SDV ONE (16:11)
[2024-04-02 17:30] VITALS: BP 110/72; PULSE 91
== END 2024-04-02 18:48 | disposition home or self-care (01) ==
LOC: DL.ED 14:55
DX: S43.032A Inferior subluxation of left humerus, initial encounter (principal); J44.9 Chronic obstructive pulmonary disease, unspecified; I12.9 Hypertensive chronic kidney disease with stage 1 through stage 4 chronic kidney disease, or unspecified chronic kidney disease; N18.9 Chronic kidney disease, unspecified; F17.210 Nicotine dependence, cigarettes, uncomplicated; E66.9 Obesity, unspecified; K21.9 Gastro-esophageal reflux disease without esophagitis; Z86.73 Personal history of transient ischemic attack (TIA), and cerebral infarction without residual deficits; Z68.41 Body mass index [BMI] 40.0-44.9, adult; X50.9XXA Other and unspecified overexertion or strenuous movements or postures, initial encounter
CPT/HCPCS: 23650; 73030-LT; 96374; 99156; 99283-25; J1885

== ENCOUNTER 2024-04-16 14:50 | Emergency (ER) | payer MEDICAID ==
[2024-04-16] MEDS ORDERED: Ketorolac 30 MG/ML SDV IVPUSH ONE (14:51)
[2024-04-16] MEDS ORDERED: Propofol 200 MG/20 ML SDV IV ONE (14:51)
[2024-04-16] MEDS ORDERED: Ondansetron 4 MG/2 ML SDV IV ONE (14:51)
[2024-04-16] MEDS ORDERED: Lidocaine 1% 30 ML SDV NERVRT ONE (14:51)
[2024-04-16] MEDS ORDERED: Ropivacaine 100 ML EPIDUR ONE (14:51)
[2024-04-16] MEDS: Ondansetron 4 MG/2 ML SDV IVPUSH ONE (15:50)
[2024-04-16] MEDS: fentaNYL 100 MCG/2 ML SDV IVPUSH ONE ×2 (15:50→16:45)
[2024-04-16] MEDS ORDERED: Lidocaine 1% 4 ML ONE (16:42)
[2024-04-16 17:00] VITALS: PULSE 78
[2024-04-16 17:20] VITALS: BP 159/100
== END 2024-04-16 17:47 | disposition home or self-care (01) ==
LOC: DL.ED 14:50
DX: S43.015A Anterior dislocation of left humerus, initial encounter (principal); I10 Essential (primary) hypertension; J44.9 Chronic obstructive pulmonary disease, unspecified; K21.9 Gastro-esophageal reflux disease without esophagitis; E66.9 Obesity, unspecified; Z90.49 Acquired absence of other specified parts of digestive tract; Z79.899 Other long term (current) drug therapy; Z79.51 Long term (current) use of inhaled steroids; Z79.82 Long term (current) use of aspirin; Z88.5 Allergy status to narcotic agent; Z68.42 Body mass index [BMI] 45.0-49.9, adult; X50.9XXA Other and unspecified overexertion or strenuous movements or postures, initial encounter
CPT/HCPCS: 01922; 23650; 73030; 96374; 96375; 96376; 99152; 99153; 99283; 99284; J1885; J2405; J2704; J2795; J3010; J3490

== ENCOUNTER 2024-12-20 11:49 | Emergency (ER) | payer MEDICARE, MEDICAID ==
[2024-12-20 12:05] VITALS: BP 133/82; PULSE 88
[2024-12-20] MEDS: Lidocaine 2% 20 ML MDV ONE ×2 (13:17)
== END 2024-12-20 12:58 | disposition home or self-care (01) ==
LOC: DL.ED 11:49
DX: G43.909 Migraine, unspecified, not intractable, without status migrainosus (principal); I12.9 Hypertensive chronic kidney disease with stage 1 through stage 4 chronic kidney disease, or unspecified chronic kidney disease; E66.9 Obesity, unspecified; F17.210 Nicotine dependence, cigarettes, uncomplicated; J44.89 Other specified chronic obstructive pulmonary disease; N18.9 Chronic kidney disease, unspecified; Z88.5 Allergy status to narcotic agent; Z79.899 Other long term (current) drug therapy; Z79.51 Long term (current) use of inhaled steroids; Z79.82 Long term (current) use of aspirin; Z79.891 Long term (current) use of opiate analgesic; Z90.49 Acquired absence of other specified parts of digestive tract; Z68.42 Body mass index [BMI] 45.0-49.9, adult
CPT/HCPCS: 70450; 99283; 99284; J2003

== ENCOUNTER 2025-01-30 14:34 | Emergency (ER) | payer MEDICARE, MEDICAID ==
[2025-01-30 16:12] VITALS: BP 122/82; PULSE 85
== END 2025-01-30 16:45 | disposition home or self-care (01) ==
LOC: DL.ED 14:34
DX: S09.90XA Unspecified injury of head, initial encounter (principal); I13.0 Hypertensive heart and chronic kidney disease with heart failure and stage 1 through stage 4 chronic kidney disease, or unspecified chronic kidney disease; I50.9 Heart failure, unspecified; E66.9 Obesity, unspecified; J44.89 Other specified chronic obstructive pulmonary disease; N18.9 Chronic kidney disease, unspecified; Z88.5 Allergy status to narcotic agent; Z79.899 Other long term (current) drug therapy; Z79.51 Long term (current) use of inhaled steroids; Z79.82 Long term (current) use of aspirin; Z90.49 Acquired absence of other specified parts of digestive tract; W22.8XXA Striking against or struck by other objects, initial encounter
CPT/HCPCS: 70450; 72125; 99282; 99284

== ENCOUNTER 2025-03-12 13:50 | Emergency (ER) | payer MEDICARE, MEDICAID ==
[2025-03-12] MEDS ORDERED: Sodium Chloride 0.9% 10 ML Syringe FLUSH PRN ×2 (14:05)
[2025-03-12 14:28] LABS: BASOPHILS PERCENT AUTO 0.2 % (0.0-1.0); EOSINOPHILS PERCENT AUTO 1.0 % (1.0-3.0); LYMPHOCYTES PERCENT AUTO 21.6 % (20.5-50.1); MONOCYTES PERCENT AUTO 5.5 % (2-8); NEUTROPHILS PERCENT AUTO 71.7 % (42.2-75.2); PLATELET COUNT,PLT 205 10^3/uL (150-450); RED BLOOD CELL COUNT 4.48 10^6/uL (4.2-5.4); WHITE BLOOD CELL COUNT,WBC 12.7 10^3/uL (5.0-10.0)
[2025-03-12 14:44] LABS: INR 1.0 (0.9-1.2)
[2025-03-12 14:52] LABS: A/G RATIO 1.1; ALANINE AMINOTRANSFERASE,ALT 30 U/L (14-59); ASPARTATE AMNIOTRANSFERASE,AST 18 U/L (15-37); BILIRUBIN TOTAL 0.7 mg/dL (0.2-1.0); BLOOD UREA NITROGEN,BUN 18 mg/dL (7-18); CARBON DIOXIDE,CO2 29 mmol/L (21-32); CHLORIDE,CL 99 mmol/L (98-107); CREATININE 1.46 mg/dL (0.55-1.02); EST CRCL DRUG DOSING (CG) 30.53 mL/min; GLUCOSE RANDOM 101 mg/dL (70-99); POTASSIUM,K 4.1 mmol/L (3.5-5.1); PROTEIN TOTAL,TP 7.5 g/dL (6.4-8.2); SODIUM,NA 135 mmol/L (136-145)
[2025-03-12 14:54] LABS: ESTIMATED GFR 41 mL/min (>=60)
[2025-03-12] MEDS: Iopamidol 755 Mg/ML 100 ML Bottle IVPUSH ONE (17:09)
[2025-03-12 18:31] VITALS: PULSE 72
[2025-03-12 18:32] VITALS: BP 123/73
== END 2025-03-12 18:30 | disposition home or self-care (01) ==
LOC: DL.ED 13:50
DX: M54.2 Cervicalgia (principal); R42 Dizziness and giddiness; I12.9 Hypertensive chronic kidney disease with stage 1 through stage 4 chronic kidney disease, or unspecified chronic kidney disease; N18.9 Chronic kidney disease, unspecified; J44.89 Other specified chronic obstructive pulmonary disease; K21.9 Gastro-esophageal reflux disease without esophagitis; F17.200 Nicotine dependence, unspecified, uncomplicated; Z90.49 Acquired absence of other specified parts of digestive tract; Z88.5 Allergy status to narcotic agent; Z79.51 Long term (current) use of inhaled steroids; Z79.82 Long term (current) use of aspirin; Z79.899 Other long term (current) drug therapy
CPT/HCPCS: 36415; 70450; 70496; 70498; 72125; 80053; 84484; 85025; 85610; 93005; 99284; A9270; J7030; Q9967